=== PATIENT | female | born 1990 | race American Indian/Alaskan Native ===

== ENCOUNTER 2017-01-17 12:17 | Emergency (ER) | payer SELFPAY ==
[2017-01-17 12:39] VITALS: BP 162/118
[2017-01-17 14:07] LABS: Hematocrit 37.4 % (30.3-42.9); Hemoglobin 12.2 gm/dl (10.1-14.3); Mean Corpuscular HGB Conc 33 % (30-34); Mean Corpuscular Hemoglobin 30 pg (28-32); Mean Corpuscular Volume 92 fl (79-97); Platelet Count 214 K/mm3 (140-440); Red Blood Count 4.07 M/mm3 (3.65-5.03); Red Cell Distribution Width 16.2 % (13.2-15.2); White Blood Count 5.4 K/mm3 (4.5-11.0)
[2017-01-17 14:11] LABS: Bilirubin,Urine NEG (Negative); Blood,Urine NEG (Negative); Ketones,Urine NEG (Negative); Leukocyte Esterase,Urine NEG (Negative); Mucus,Urine FEW /HPF; Nitrite,Urine NEG (Negative); Protein,Urine <15 mg/dL mg/dL (Negative); Urobilinogen,Urine < 2.0 mg/dL (<2.0); WBC,Urine < 1.0 /HPF (0.0-6.0)
[2017-01-17 14:32] LABS: Anion Gap 13 mmol/L; BUN/Creatinine Ratio 21.42; Blood Urea Nitrogen 15 mg/dL (7-17); Calcium 9.2 mg/dL (8.4-10.2); Carbon Dioxide 26 mmol/L (22-30); Glucose 76 mg/dL (65-100); Potassium 4.1 mmol/L (3.6-5.0); Sodium 139 mmol/L (137-145)
[2017-01-17] MEDS ORDERED: TYLENOL ONE (20:45)
[2017-01-17] MEDS ORDERED: TYLENOL PO ONE (20:48)
--- NOTE | 2017-01-19 10:13 | ED Elopement Review ---
ED Pt Elopement review - Results review Lab results: Laboratory Tests 01/17/17 01/17/17 01/17/17 13:41 13:54 13:54 WBC 5.4 RBC 4.07 Hgb 12.2 Hct 37.4 MCV 92 MCH 30 MCHC 33 RDW 16.2 H Plt Count 214 Sodium 139 Potassium 4.1 Chloride 104.0 Carbon Dioxide 26 Anion Gap 13 BUN 15 Creatinine 0.7 Estimated GFR > 60 BUN/Creatinine Ratio 21.42 Glucose 76 Calcium 9.2 Urine Color Yellow Urine Turbidity Clear Urine pH 6.0 Ur Specific [place] 1.023 Urine Protein <15 mg/dl Urine Glucose (UA) Neg Urine Ketones Neg Urine Blood Neg Urine Nitrite Neg Urine Bilirubin Neg Urine Urobilinogen < 2.0 Ur Leukocyte Esterase Neg Urine WBC (Auto) < 1.0 Urine RBC (Auto) 3.0 U Epithel Cells (Auto) 8.0 Urine Mucus Few Urine HCG, Qual Negative - Call Back decision Pt Call Back Decision: No action required
== END 2017-01-17 23:00 | disposition left against medical advice (07) ==
LOC: ED 12:17
DX: R10.30 Lower abdominal pain, unspecified (principal); M54.5 Low back pain; N89.8 Other specified noninflammatory disorders of vagina; Z53.21 Procedure and treatment not carried out due to patient leaving prior to being seen by health care provider
CPT/HCPCS: 36415; 80048; 81001; 81025; 85027

== ENCOUNTER 2017-02-13 20:04 | Emergency (ER) | payer MEDICAID, OTHER ==
[2017-02-13 22:01] LABS: Basophils % (Auto) 0.9 % (0.0-1.8); Eosinophils % (Auto) 1.4 % (0.0-4.3); Hematocrit 33.8 % (30.3-42.9); Hemoglobin 11.3 gm/dl (10.1-14.3); Mean Corpuscular HGB Conc 33 % (30-34); Mean Corpuscular Hemoglobin 31 pg (28-32); Mean Corpuscular Volume 92 fl (79-97); Platelet Count 211 K/mm3 (140-440); Red Blood Count 3.69 M/mm3 (3.65-5.03); Red Cell Distribution Width 14.4 % (13.2-15.2)
[2017-02-13 22:23] LABS: Anion Gap 17 mmol/L; Blood Urea Nitrogen 9 mg/dL (7-17); Calcium 8.9 mg/dL (8.4-10.2); Carbon Dioxide 23 mmol/L (22-30); Chloride 99.9 mmol/L (98-107); Glucose 86 mg/dL (65-100); Lipase 22 units/L (13-60); Potassium 4.1 mmol/L (3.6-5.0); Sodium 136 mmol/L (137-145)
[2017-02-13 22:26] LABS: Bacteria,Urine 1+ /HPF (Negative); Bilirubin,Urine NEG (Negative); Blood,Urine NEG (Negative); Ketones,Urine NEG (Negative); Leukocyte Esterase,Urine MOD (Negative); Mucus,Urine FEW /HPF; Nitrite,Urine NEG (Negative); Protein,Urine <15 mg/dL mg/dL (Negative); Urobilinogen,Urine < 2.0 mg/dL (<2.0)
[2017-02-14] MEDS ORDERED: TYLENOL ONE (01:39)
[2017-02-14] MEDS ORDERED: TYLENOL PO ONE ×2 (01:47→08:23)
--- NOTE | 2017-02-14 02:52 | Ultrasound Report ---
FINAL REPORT PROCEDURE: US OB TRANSVAGINAL TECHNIQUE: Real-time transvaginal sonography of the uterus, placenta, amniotic fluid, adnexa, and fetus was performed with image documentation. Measurements were obtained to determine age/size. M-mode Doppler was used to document heartbeat. CPT 69147 HISTORY: pain, vag bleed COMPARISON: No prior studies are available for comparison. FINDINGS: CRL: 7.6mm, which corresponds to a gestational age of: 6weeks, 5 days. Yolk Sac: Normal. Embryonic Cardiac Activity: 128 beats per minute Gestational Sac: Normal. However, there is a subchorionic hematoma measuring 19 x 6 x 7 millimeters. Right Ovary: Normal. Left Ovary: There is a 2.2 centimeter solid appearing lesion in the left ovary which could be hemorrhagic corpus luteal cyst. Estimated delivery date: 10/05/2017 Comment: Complete anatomic survey at 18-20 weeks suggested. IMPRESSION: 1. Single living intrauterine gestation at approximately 6 weeks and 5 days 2. EDC by US 10/05/2017. 3. Subchorionic hematoma. 4. Probable hemorrhagic cyst in left ovary.
--- NOTE | 2017-02-14 02:54 | Ultrasound Report ---
FINAL REPORT PROCEDURE: US OB transabdominal TECHNIQUE: Real-time transabdominal sonography of the uterus, placenta, amniotic fluid, adnexa, and fetus was performed with image documentation. Measurements were obtained to determine age/size. M-mode Doppler was used to document heartbeat. HISTORY: pain, vag bleed COMPARISON: No prior studies are available for comparison. FINDINGS: CRL: 7.6mm, which corresponds to a gestational age of: 6weeks, 5 days. Yolk Sac: Normal. Embryonic Cardiac Activity: 128 beats per minute Gestational Sac: Normal. However, there is a subchorionic hematoma measuring 19 x 6 x 7 millimeters. Right Ovary: Normal. Left Ovary: There is a 2.2 centimeter solid appearing lesion in the left ovary which could be hemorrhagic corpus luteal cyst. Estimated delivery date: 10/05/2017 Comment: Complete anatomic survey at 18-20 weeks suggested. IMPRESSION: 1. Single living intrauterine gestation at approximately 6 weeks and 5 days 2. EDC by US 10/05/2017. 3. Subchorionic hematoma. 4. Probable hemorrhagic cyst in left ovary.
--- NOTE | 2017-02-14 08:30 | Emergency Department Report ---
HPI - General Chief Complaint: Urogenital-Female Time Seen by Provider: 02/14/17 08:11 - HPI HPI: Room 8 The patient is 26-year-old female presenting with a chief complaint of chest pain and abdominal pain. Patient is approximately 7 weeks and states for 5 weeks she has had lower abdominal pain. Patient was seen by her [facility] last week and diagnosed with bacterial vaginosis. The patient states for 1 week she has had left sided chest pain that has been sharp and pleuritic in nature. Patient admits to a cough that has been nonproductive. Patient states yesterday she had an episode of vomiting and noticed specks of blood. Patient missed shortness of breath for one week. Patient denies any history of fever. Patient currently gives her chest pain a score of 6/10. Location: Chest, abdomen Duration: [see above] Quality: Sharp Severity: 6/10 Modifying factors: [see above] Context: [see above] Mode of transportation: [not driving] ED Past Medical Hx - Past Medical History Hx Hypertension: Yes (severe pre-eclampsia) Hx GERD: Yes Hx Psychiatric Treatment: Yes (DEPRESSION) - Surgical History Additional Surgical History: csection - Family History Family history: no significant - Social History Smoking Status: Current Some Day Smoker Substance Use Type: None (denies illicit drug use) - Medications Home Medications: Home Medications Medication Instructions Recorded Confirmed Last Taken Type Labetalol [Normodyne TAB] 400 mg PO BID #120 tablet 09/07/16 02/14/17 Unknown Rx NIFEdipine XL [Procardia Xl] 30 mg PO QDAY #30 tablet 09/13/16 02/14/17 Unknown Rx Famotidine [Pepcid] 20 mg PO BID #30 tablet 02/14/17 Unknown Rx ED Review of Systems ROS: Stated complaint: VOMITING BLOOD 7 WKS PREG Other details as noted in HPI Comment: All other systems reviewed and negative Constitutional: denies: chills, fever Eyes: denies: eye pain, eye discharge, vision change ENT: denies: ear pain, throat pain Respiratory: cough, shortness of breath Cardiovascular: chest pain Endocrine: no symptoms reported Gastrointestinal: abdominal pain, nausea, vomiting Genitourinary: hematuria. denies: urgency, dysuria, discharge Musculoskeletal: denies: back pain, joint swelling, arthralgia Skin: denies: rash, lesions Neurological: denies: headache, weakness, paresthesias Psychiatric: denies: anxiety, depression Hematological/Lymphatic: denies: easy bleeding, easy bruising Physical Exam - Physical Exam Vital Signs: Vital Signs 02/13/17 02/14/17 02/14/17 21:19 01:37 04:44 Temperature 98.4 F Pulse Rate 76 69 63 Respiratory 18 18 18 Rate Blood Pressure 145/105 149/95 151/111 Blood Pressure [Right] O2 Sat by Pulse 100 100 100 Oximetry 02/14/17 02/14/17 08:14 08:19 Temperature Pulse Rate 76 Respiratory 15 16 Rate Blood Pressure Blood Pressure 144/87 [Right] O2 Sat by Pulse 100 100 Oximetry Physical Exam: GENERAL: The patient is well-developed well-nourished female lying on stretcher not appearing to be in acute distress. [] HEENT: Normocephalic. Atraumatic. Extraocular motions are intact. Patient has moist mucous membranes. NECK: Supple. Regular midline CHEST/LUNGS: Clear to auscultation. There is no respiratory distress noted. HEART/CARDIOVASCULAR: Regular. There is no tachycardia. There is no gallop rub or murmur. ABDOMEN: Abdomen is soft, nontender. Patient has normal bowel sounds. There is no abdominal distention. SKIN: There is no rash. There is no edema. There is no diaphoresis. NEURO: The patient is awake, alert, and oriented. The patient is cooperative. The patient has normal speech MUSCULOSKELETAL: There is no evidence of acute injury. ED Course Vital Signs 02/13/17 02/14/17 02/14/17 21:19 01:37 04:44 Temperature 98.4 F Pulse Rate 76 69 63 Respiratory 18 18 18 Rate Blood Pressure 145/105 149/95 151/111 Blood Pressure [Right] O2 Sat by Pulse 100 100 100 Oximetry 02/14/17 02/14/17 08:14 08:19 Temperature Pulse Rate 76 Respiratory 15 16 Rate Blood Pressure Blood Pressure 144/87 [Right] O2 Sat by Pulse 100 100 Oximetry ED Medical Decision Making - Lab Data Result diagrams: 02/13/17 21:51 02/13/17 21:51 Laboratory Tests 02/13/17 02/13/17 02/13/17 21:51 21:51 22:00 WBC 7.0 RBC 3.69 Hgb 11.3 Hct 33.8 MCV 92 MCH 31 MCHC 33 RDW 14.4 Plt Count 211 Lymph % (Auto) 35.4 H [place] % (Auto) 10.7 H Eos % (Auto) 1.4 Baso % (Auto) 0.9 Lymph # 2.5 Coles # 0.7 Eos # 0.1 Baso # 0.1 Seg Neutrophils % 51.6 Seg Neutrophils # 3.6 Sodium 136 L Potassium 4.1 Chloride 99.9 Carbon Dioxide 23 Anion Gap 17 BUN 9 Creatinine 0.5 L Estimated GFR > 60 BUN/Creatinine Ratio 18.00 Glucose 86 Calcium 8.9 Troponin T < 0.010 Lipase 22 HCG, Quant Urine Color Yellow Urine Turbidity Cloudy Urine pH 6.0 Ur Specific [place] 1.018 Urine Protein <15 mg/dl Urine Glucose (UA) Neg Urine Ketones Neg Urine Blood Neg Urine Nitrite Neg Ur Reducing Substances Not Reportable Urine Bilirubin Neg Urine Ictotest Not Reportable Urine Urobilinogen < 2.0 Ur Leukocyte Esterase Mod Urine WBC (Auto) 1.0 Urine RBC (Auto) 3.0 U Epithel Cells (Auto) 14.0 H Urine Bacteria (Auto) 1+ Urine Mucus Few Urine HCG, Qual Positive A 02/14/17 02/14/17 02/14/17 01:17 03:21 03:21 WBC RBC Hgb Hct MCV MCH MCHC RDW Plt Count Lymph % (Auto) [place] % (Auto) Eos % (Auto) Baso % (Auto) Lymph # [place] # Eos # Baso # Seg Neutrophils % Seg Neutrophils # Sodium Potassium Chloride Carbon Dioxide Anion Gap BUN Creatinine Estimated GFR BUN/Creatinine Ratio Glucose Calcium Troponin T < 0.010 < 0.010 Lipase HCG, Quant 00378 H Urine Color Urine Turbidity Urine pH Ur Specific [place] Urine Protein Urine Glucose (UA) Urine Ketones Urine Blood Urine Nitrite Ur Reducing Substances Urine Bilirubin Urine Ictotest Urine Urobilinogen Ur Leukocyte Esterase Urine WBC (Auto) Urine RBC (Auto) U Epithel Cells (Auto) Urine Bacteria (Auto) Urine Mucus Urine HCG, Qual - EKG Data -: EKG Interpreted by Me EKG shows normal: sinus rhythm Rate: normal - EKG Data When compared to previous EKG there are: no significant change Interpretation: normal EKG, unchanged when compared t (09/11/2016) - Radiology Data Radiology results: report reviewed (pelvic ultrasound, VQ scan), image reviewed (pelvic ultrasound, chest x-ray, VQ scan) interpreted by me: Chest x-ray-no focal infiltrates, no pneumothorax Pelvic ultrasound (read by radiologist)-single living intrauterine gestation at approximately 6 weeks and 5 days. EDC by ultrasound 10/05/2017. Subchorionic hematoma. Probable hemorrhagic cyst in left ovary. VQ scan (read by radiologist)-normal study - Differential Diagnosis PE, pneumonia, bronchitis, threatened Critical care attestation.: If time is entered above; I have spent that time in minutes in the direct care of this critically ill patient, excluding procedure time. ED Disposition Clinical Impression: Chest pain, Subchorionic hemorrhage Disposition: DISCHARGED TO HOME OR SELFCARE Is pt being admited?: No Does the pt Need Aspirin: No Condition: Stable Instructions: Chest Pain (ED) Additional Instructions: Return to the emergency department immediately should you develop worsening symptoms, fever, inability to tolerate food or liquid or any other concerns. Prescriptions: Famotidine [Pepcid] 20 mg PO BID #30 tablet Referrals: PRIMARY CAREMD [Primary Care Provider] - 3-5 Days [facility] [Provider Group] - [place] Time of Disposition: 14:08
--- NOTE | 2017-02-14 09:35 | XRay Report ---
AP CHEST: History: Chest pain. AP view of the chest demonstrates a normal mediastinal and cardiac contour with clear lungs and normal bony and soft tissue structures. IMPRESSION: Normal AP chest.
[2017-02-14 12:18] VITALS: BP 125/68
--- NOTE | 2017-02-14 13:57 | Nuclear Medicine Report ---
PERFUSION LUNG SCAN: After injection of Technetium 99m macroaggregated albumin gamma camera imaging of the lungs in multiple projections demonstrates normal pulmonary contours with a homogeneous distribution of activity. No focal areas of perfusion deficiency are identified. IMPRESSION: Normal study.
== END 2017-02-14 14:29 | disposition home or self-care (01) ==
LOC: ED 20:04
DX: O20.8 Other hemorrhage in early pregnancy (principal); O26.891 Other specified pregnancy related conditions, first trimester; R07.9 Chest pain, unspecified; O16.1 Unspecified maternal hypertension, first trimester; O99.331 Smoking (tobacco) complicating pregnancy, first trimester; K21.9 Gastro-esophageal reflux disease without esophagitis; F32.9 Major depressive disorder, single episode, unspecified; Z3A.01 Less than 8 weeks gestation of pregnancy
CPT/HCPCS: 36415; 71010; 76801; 76817; 78580; 80048; 81001; 81025; 83690; 84484; 84702; 85025; 93005; 93010; 99285; A9540

== ENCOUNTER 2017-04-20 12:25 | Emergency (ER) | payer MEDICAID ==
[2017-04-20 13:58] VITALS: BP 131/90
[2017-04-20 14:29] LABS: Basophils % (Auto) 0.4 % (0.0-1.8); Eosinophils % (Auto) 0.3 % (0.0-4.3); Hemoglobin 11.5 gm/dl (10.1-14.3); Mean Corpuscular HGB Conc 34 % (30-34); Mean Corpuscular Hemoglobin 32 pg (28-32); Mean Corpuscular Volume 94 fl (79-97); Platelet Count 172 K/mm3 (140-440); Red Blood Count 3.61 M/mm3 (3.65-5.03); Red Cell Distribution Width 12.9 % (13.2-15.2); White Blood Count 6.8 K/mm3 (4.5-11.0)
[2017-04-20 15:47] LABS: Bacteria,Urine 1+ /HPF (Negative); Bilirubin,Urine NEG (Negative); Blood,Urine NEG (Negative); Ketones,Urine TR mg/dL (Negative); Leukocyte Esterase,Urine NEG (Negative); Mucus,Urine 1+ /HPF; Nitrite,Urine NEG (Negative)
--- NOTE | 2017-04-20 16:10 | Ultrasound Report ---
FINAL REPORT PROCEDURE: US OB \T\gt; = 14 WEEKS FETUS TECHNIQUE: Real-time transabdominal sonography of the uterus, placenta, amniotic fluid, adnexa, and fetus was performed with image documentation. Measurements were obtained to determine age/size. M-mode Doppler was used to document heartbeat. CPT 97873 HISTORY: bleeding COMPARISON: 02/14/2017 FINDINGS: ADDITIONAL GESTATION: None. GENERAL: IUP: Single living intrauterine . Position: Cephalic Placental position: Grade 0 posterior, without previa. Amniotic fluid volume: Normal. MATERNAL: Uterus: Within normal limits. Cervical length: 3.9 cm. Internal Os: Closed. FETUS: Heart rate and rhythm: 167 BPM, Regular. anatomic survey: Too early for anatomic survey MEASUREMENTS: BPD: 3.5 centimeters consistent 16 weeks 5 days consistent with 58th percentile HC: 13.6 centimeters consistent 17 week 0 day consistent with 64th percentile AC: 10.5 centimeters consistent 16 week 3 day consistent with 46th percentile FL: 2.2 centimeters consistent 16 week 3 day consistent with 39th percentile Mean Gestational Age (composite criteria): 16 weeks 5 days Ratio biometry: HC AC ratio 1.3 consistent with 91st percentile, cephalic index 80.5, FL BPD 61.4 FL AC 20.5 Estimated Weight: 159 grams 24 grams consistent with 38th percentile. Interval growth: Appropriate. Estimated Due Date (earliest scan): 09/30/2017 IMPRESSION: Single intrauterine gestation at 16 weeks 5 days. Estimated due date: 09/30/2017. Normal survey with appropriate growth.
--- NOTE | 2017-04-27 10:21 | ED Elopement Review ---
ED Pt Elopement review - Results review Lab results: Laboratory Tests 04/20/17 04/20/17 04/20/17 14:09 14:09 14:09 WBC 6.8 RBC 3.61 L Hgb 11.5 Hct 34.0 MCV 94 MCH 32 MCHC 34 RDW 12.9 L Plt Count 172 Lymph % (Auto) 10.6 L [place] % (Auto) 8.7 H Eos % (Auto) 0.3 Baso % (Auto) 0.4 Lymph # 0.7 L [place] # 0.6 Eos # 0.0 Baso # 0.0 Seg Neutrophils % 80.0 H Seg Neutrophils # 5.4 HCG, Qual Positive Urine Color Urine Turbidity Urine pH Ur Specific [place] Urine Protein Urine Glucose (UA) Urine Ketones Urine Blood Urine Nitrite Urine Bilirubin Urine Urobilinogen Ur Leukocyte Esterase Urine WBC (Auto) Urine RBC (Auto) U Epithel Cells (Auto) Urine Bacteria (Auto) Urine Mucus Blood Type O POSITIVE Antibody Screen TNR CARMENZA Antibody Screen Negative 04/20/17 15:03 WBC RBC Hgb Hct MCV MCH MCHC RDW Plt Count Lymph % (Auto) [place] % (Auto) Eos % (Auto) Baso % (Auto) Lymph # [place] # Eos # Baso # Seg Neutrophils % Seg Neutrophils # HCG, Qual Urine Color Yellow Urine Turbidity Slightly-cloudy Urine pH 6.0 Ur Specific [place] 1.031 H Urine Protein 100 mg/dl Urine Glucose (UA) Neg Urine Ketones Tr Urine Blood Neg Urine Nitrite Neg Urine Bilirubin Neg Urine Urobilinogen 4.0 Ur Leukocyte Esterase Neg Urine WBC (Auto) 1.0 Urine RBC (Auto) 7.0 U Epithel Cells (Auto) 23.0 H Urine Bacteria (Auto) 1+ Urine Mucus 1+ Blood Type Antibody Screen CARMENZA Antibody Screen - Call Back decision Pt Call Back Decision: No action required
== END 2017-04-20 22:30 | disposition left against medical advice (07) ==
LOC: ED 12:25
DX: O20.9 Hemorrhage in early pregnancy, unspecified (principal); O21.0 Mild hyperemesis gravidarum; R10.31 Right lower quadrant pain; Z53.21 Procedure and treatment not carried out due to patient leaving prior to being seen by health care provider; Z3A.16 16 weeks gestation of pregnancy
CPT/HCPCS: 76805; 81001; 84703; 85025; 86850; 86900; 86901

== ENCOUNTER 2017-06-04 02:47 | Outpatient (CLI) | payer MEDICAID ==
[2017-06-04] MEDS ORDERED: LACTATED RINGERS 500 ML IV ONE (03:42)
[2017-06-04] MEDS ORDERED: LACTATED RINGERS 1,000 ML ONE (04:30)
[2017-06-04] MEDS ORDERED: LACTATED RINGERS 1,000 ML IV ONE ×2 (05:00→05:51)
[2017-06-04 05:40] LABS: Bilirubin,Urine NEG (Negative); Blood,Urine NEG (Negative); Ketones,Urine NEG (Negative); Leukocyte Esterase,Urine NEG (Negative); Mucus,Urine FEW /HPF; Nitrite,Urine NEG (Negative); Protein,Urine <15 mg/dL mg/dL (Negative); Urobilinogen,Urine < 2.0 mg/dL (<2.0); WBC,Urine < 1.0 /HPF (0.0-6.0)
[2017-06-04] MEDS ORDERED: TYLENOL PO ONE (05:51)
[2017-06-04 06:04] VITALS: BP 143/85
== END 2017-06-04 07:10 | disposition home or self-care (01) ==
LOC: TRG 02:47
PROVIDERS: ATTEND Obstetrics & Gynecology
DX: O47.02 False labor before 37 completed weeks of gestation, second trimester (principal); Z3A.23 23 weeks gestation of pregnancy
CPT/HCPCS: 81001; 96360; 96361; J7120

== ENCOUNTER 2017-07-04 12:46 | Outpatient (CLI) | payer MEDICAID ==
[2017-07-04] MEDS ORDERED: LACTATED RINGERS 1,000 ML ONE (14:36)
[2017-07-04 15:08] LABS: Hematocrit 30.2 % (30.3-42.9); Hemoglobin 10.2 gm/dl (10.1-14.3); Mean Corpuscular HGB Conc 34 % (30-34); Mean Corpuscular Hemoglobin 32 pg (28-32); Mean Corpuscular Volume 95 fl (79-97); Platelet Count 180 K/mm3 (140-440); Red Cell Distribution Width 13.2 % (13.2-15.2); White Blood Count 7.9 K/mm3 (4.5-11.0)
[2017-07-04 15:13] LABS: Bacteria,Urine 4+ /HPF (Negative); Bilirubin,Urine NEG (Negative); Blood,Urine SM (Negative); Ketones,Urine NEG (Negative); Leukocyte Esterase,Urine NEG (Negative); Mucus,Urine FEW /HPF; Nitrite,Urine NEG (Negative); Protein,Urine <15 mg/dL mg/dL (Negative); Urobilinogen,Urine < 2.0 mg/dL (<2.0)
[2017-07-04 15:32] LABS: Alanine Aminotransferase 9 units/L (7-56); Lactate Dehydrogenase 128 units/L (91-180); Uric Acid 5.2 mg/dL (3.5-7.6)
[2017-07-04] MEDS ORDERED: LACTATED RINGERS 500 ML IV ONE (16:00)
[2017-07-04 17:41] VITALS: BP 150/99
== END 2017-07-04 18:03 | disposition home or self-care (01) ==
LOC: TRG 12:46
PROVIDERS: ATTEND Obstetrics & Gynecology
DX: O47.02 False labor before 37 completed weeks of gestation, second trimester (principal); Z87.891 Personal history of nicotine dependence; Z3A.27 27 weeks gestation of pregnancy
CPT/HCPCS: 36415; 59025; 81001; 82565; 82731; 83615; 84450; 84460; 84550; 85027; 96360; J7120

== ENCOUNTER 2017-07-11 13:51 | Observation (INO) | payer MEDICAID ==
[2017-07-11] MEDS ORDERED: LACTATED RINGERS 500 ML IV ONE (13:59)
[2017-07-11 15:00] LABS: Bilirubin,Urine NEG (Negative); Blood,Urine NEG (Negative); Ketones,Urine NEG (Negative); Leukocyte Esterase,Urine NEG (Negative); Mucus,Urine FEW /HPF; Nitrite,Urine NEG (Negative); Protein,Urine <15 mg/dL mg/dL (Negative); Urobilinogen,Urine < 2.0 mg/dL (<2.0); WBC,Urine < 1.0 /HPF (0.0-6.0)
[2017-07-11] MEDS ORDERED: APRESOLINE IV PRN (19:18)
[2017-07-11] MEDS ORDERED: MAGNESIUM SULFATE 40GM/1000ML 40 GM/1,000 ML BAG IV SCH (20:00)
[2017-07-11] MEDS ORDERED: PROCARDIA XL PO SCH (20:00)
--- NOTE | 2017-07-11 22:58 | History and Physical Report ---
History of Present Illness Date of examination: 07/11/17 Date of admission: 07/11/17 14:50 Chief complaint: 24 hr urine protein collection History of present illness: 26yo BF EDC 10/01/17; EGA 28 2/7 weeks who is apparently referred to [facility] from [facility] for 24-hour urine protein collection. She is well known to me from a recent admission, she was discharged on 2016 after an admission for ~ 72 hours. Please see copy of discharge summary below: 26 y/o presents to L&D complaining of headaches, blurred vision and epigastric pain x 2 days. She received care at [facility] since 6 weeks, and course has been complicated by a history of Preeclampsia/ PTD @ 32 weeks, Chronic hypertension for which she takes Labetolol 300mg BID and Procardia 30mg QD, previous C Section x 2 - with last delivery 9 months ago , for which she was co-managed with [facility]. Maternal medicine and NICU consult requested [facility] CONSULT: ASSESSMENT * IUP at 27weeks 1 days gestation * Chronic hypertension; rule out superimposed preeclampsia. * IUP at 27weeks 5 days gestation * Chronic hypertension; rule out superimposed preeclampsia. * Upper respiratory tract infection and headache x 2 days * Admitted due elevated blood pressure * Improved BP presently. RECOMMENDATIONS Administer steroids to enhance lung maturity. Given her gestational age we would recommend DELIVERY only IF the patient had signs of unambiguously SEVERE preeclampsia. Given the current gestational age. We suspect CHTN with possible outpatient non- compliance rather than CHTN requiring delivery at this time; however her current hospitalization will allow us to differentiate this situation. Agree with Labetalol and Procardia. Hydralazine PRN. 10 mg every 30 minutes for SBP > 160 or DBP > 105 x 3 doses. Call [facility] for more than 3 dosages of Hydralazine in 24 hours. Observe for improvement in blood pressure. If the patient develops any of the criteria for delivery during observation we would recommend taking steps to deliver this . She was assessed on the morning of 07/10/2017: 26-year-old at 28+1 weeks with superimposed preeclampsia on chronic hypertension -BP range 111-147/70-90's issues -2 prior C-sections -s/p BMZ course on 07/08/17 -Growth wnl -s/p BPP 06/11 on 07/09/17 -Neg HELLP labs -s/p Mag Meds -Labetalol 300 mg twice a day -Procardia 30 mg XL daily She was discharged home [facility] office. On labor and delivery today, her blood pressure has been labile but mostly in the 130s to 140s over 90s range. She does have occasional pressures in the 180s over 100s but these are not persistent. At present, she is asymptomatic for pre-E Past History Past Medical History: hypertension Past Surgical History: section (x 2) - Obstetrical History Expected Date of Delivery: 10/01/17 Actual Gestation: 28 Week(s) 3 Day(s) : 4 Para: 2 Medications and Allergies Allergies Allergy/AdvReac Type Severity Reaction Status Date / Time No Known Allergies Allergy Verified 02/20/16 10:04 Home Medications Medication Instructions Recorded Confirmed Last Taken Type Ferrous Sulfate [Feosol] 325 mg PO QDAY 07/07/17 07/07/17 Unknown History Labetalol [Normodyne TAB] 300 mg PO BID 07/07/17 07/07/17 07/07/17 09:00 History Labetalol [Normodyne TAB] 300 mg PO BID #120 tablet 07/10/17 Unknown Rx NIFEdipine XL [Procardia Xl] 30 mg PO QDAY #30 tablet 07/10/17 Unknown Rx Active Meds: Active Medications Hydralazine HCl (Apresoline) 5 mg IV Q30MIN PRN PRN Reason: Hypertension Lactated Ringer's (Lactated Ringers) 1,000 mls @ 125 mls/hr IV DIRECT ANTIONE Magnesium Sulfate (Magnesium Sulfate 40gm/1000ml) 40 gm in 1,000 mls @ 50 mls/ hr IV TITR ANTIONE PRN Reason: 2 GM/HR Labetalol HCl (Normodyne) 300 mg PO BID ANTIONE Nifedipine (Procardia Xl) 30 mg PO QDAY ANTIONE Review of Systems Constitutional: no fever, no chronic headaches Eyes: no photophobia, no blind spots Cardiovascular: high blood pressure, no chest pain, no syncope, no lightheadedness, no shortness of breath Gastrointestinal: no abdominal pain, no nausea, no vomiting, no heartburn, no indigestion Genitourinary: no vaginal bleeding, no vaginal discharge, no leakage of fluid, no contractions - Vital Signs Vital signs: Vital Signs Pulse BP Pulse Ox 71 142/104 99 07/11/17 14:10 07/11/17 14:10 07/11/17 14:10 Temp Pulse Resp BP Pulse Ox 97.8 F 78 14 139/93 98 07/11/17 19:51 07/11/17 22:53 07/11/17 19:51 07/11/17 22:39 07/11/17 22:53 - Physical Exam Cardiovascular: Regular rate, Normal S1, Normal S2 Lungs: Positive: Clear to auscultation, Normal air movement Abdomen: Positive: normal appearance, soft. Negative: distention, tenderness, guarding, rigidity Genitourinary (Female): Positive: normal external genitalia Vulva: both: normal Uterus: Positive: enlarged. Negative: tender Adnexa: both: normal Extremities: Positive: normal - Obstetrical FHR: category 1 Results All other labs normal. Assessment and Plan A: 26-year-old at 28+2 weeks with superimposed preeclampsia on chronic hypertension -BP range 130-140's/70-90's issues -2 prior C-sections -s/p BMZ course on 07/08/17 -Growth wnl -s/p BPP 8/8 on 07/09/17 -Neg HELLP labs -s/p Mag Meds -Labetalol 300 mg twice a day -Procardia 30 mg XL daily P: -Has already been admitted -Start magnesium per protocol -IV antihypertensives when necessary -Restart her oral antihypertensives - Patient Problems (1) 28 weeks gestation of Current Visit: No Status: Acute (2) Chronic hypertension with superimposed pre-eclampsia Onset Date: 07/07/17 Current Visit: No Status: Acute
[2017-07-11] MEDS: NORMODYNE PO SCH (23:00)
[2017-07-12] MEDS: LACTATED RINGERS 1,000 ML IV SCH ×2 (00:05→13:10)
[2017-07-12] MEDS: NORMODYNE PO SCH (10:45)
[2017-07-12] MEDS ORDERED: TYLENOL PO PRN (12:00)
[2017-07-12] MEDS ORDERED: ZOFRAN IV PRN (12:00)
--- NOTE | 2017-07-12 17:25 | Progress Note ---
Assessment and Plan - Patient Problems (1) 28 weeks gestation of Onset Date: 07/12/17 Current Visit: No Status: Acute Plan to address problem: A: IUP @ 28 4/7 weeks Chronic hypertension with superimposed preeclampsia - stable P: May go home today (2) Chronic hypertension with superimposed pre-eclampsia Onset Date: 07/07/17 Current Visit: No Status: Acute Subjective - Subjective Date of service: 07/12/17 Principal diagnosis: IUP @ 28 3/7 weeks Interval history: Pt states she is feeling much better. Headaches has resolved. Patient reports: movement normal, no new complaints, no loss of fluid, no vaginal bleeding, no contractions Objective - Vital Signs Vital Signs: Vital Signs - 12hr 07/12/17 07/12/17 07/12/17 06:01 06:06 06:08 Temperature Pulse Rate 89 65 66 Blood Pressure 123/78 O2 Sat by Pulse 99 97 Oximetry 07/12/17 07/12/17 07/12/17 06:11 06:15 06:16 Temperature Pulse Rate 66 75 74 Blood Pressure O2 Sat by Pulse 97 93 96 Oximetry 07/12/17 07/12/17 07/12/17 06:21 06:26 06:31 Temperature Pulse Rate 66 68 69 Blood Pressure O2 Sat by Pulse 97 97 97 Oximetry 07/12/17 07/12/17 07/12/17 06:36 06:41 06:46 Temperature Pulse Rate 68 76 81 Blood Pressure O2 Sat by Pulse 97 97 97 Oximetry 07/12/17 07/12/17 07/12/17 06:51 06:53 06:56 Temperature Pulse Rate 80 80 78 Blood Pressure 115/87 O2 Sat by Pulse 98 97 Oximetry 07/12/17 07/12/17 07/12/17 07:01 07:06 07:11 Temperature Pulse Rate 76 73 74 Blood Pressure O2 Sat by Pulse 98 98 96 Oximetry 07/12/17 07/12/17 07/12/17 07:16 07:21 07:26 Temperature Pulse Rate 69 69 70 Blood Pressure O2 Sat by Pulse 97 98 97 Oximetry 07/12/17 07/12/17 07/12/17 07:31 07:36 07:38 Temperature Pulse Rate 65 66 68 Blood Pressure 135/84 O2 Sat by Pulse 97 98 Oximetry 07/12/17 07/12/17 07/12/17 07:39 07:41 07:46 Temperature Pulse Rate 77 56 L 67 Blood Pressure O2 Sat by Pulse 89 99 98 Oximetry 07/12/17 07/12/17 07/12/17 07:51 07:56 08:01 Temperature Pulse Rate 67 70 67 Blood Pressure O2 Sat by Pulse 98 98 97 Oximetry 07/12/17 07/12/17 07/12/17 08:06 08:11 08:16 Temperature Pulse Rate 67 69 66 Blood Pressure O2 Sat by Pulse 98 97 98 Oximetry 07/12/17 07/12/17 07/12/17 08:21 08:23 08:26 Temperature Pulse Rate 63 63 72 Blood Pressure 113/74 O2 Sat by Pulse 96 96 Oximetry 07/12/17 07/12/17 07/12/17 08:29 08:31 08:36 Temperature Pulse Rate 77 75 76 Blood Pressure O2 Sat by Pulse 94 95 95 Oximetry 07/12/17 07/12/17 07/12/17 08:37 08:41 08:43 Temperature Pulse Rate 69 75 74 Blood Pressure O2 Sat by Pulse 94 94 94 Oximetry 07/12/17 07/12/17 07/12/17 08:46 08:51 08:52 Temperature Pulse Rate 74 73 71 Blood Pressure O2 Sat by Pulse 96 95 94 Oximetry 07/12/17 07/12/17 07/12/17 08:56 08:59 09:01 Temperature Pulse Rate 71 65 66 Blood Pressure O2 Sat by Pulse 95 92 96 Oximetry 07/12/17 07/12/17 07/12/17 09:06 09:08 09:11 Temperature Pulse Rate 69 65 73 Blood Pressure 110/64 O2 Sat by Pulse 96 94 96 Oximetry 07/12/17 07/12/17 07/12/17 09:16 09:21 09:26 Temperature Pulse Rate 68 66 70 Blood Pressure O2 Sat by Pulse 96 96 96 Oximetry 07/12/17 07/12/17 07/12/17 09:31 09:36 09:41 Temperature Pulse Rate 72 67 69 Blood Pressure O2 Sat by Pulse 96 96 96 Oximetry 07/12/17 07/12/17 07/12/17 09:46 09:51 09:54 Temperature Pulse Rate 70 65 70 Blood Pressure 113/71 O2 Sat by Pulse 98 97 Oximetry 07/12/17 07/12/17 07/12/17 09:56 10:01 10:06 Temperature Pulse Rate 65 74 77 Blood Pressure O2 Sat by Pulse 97 96 96 Oximetry 07/12/17 07/12/17 07/12/17 10:11 10:16 10:21 Temperature Pulse Rate 78 66 74 Blood Pressure O2 Sat by Pulse 97 97 97 Oximetry 07/12/17 07/12/17 07/12/17 10:26 10:31 10:36 Temperature Pulse Rate 65 68 70 Blood Pressure O2 Sat by Pulse 96 96 97 Oximetry 07/12/17 07/12/17 07/12/17 10:39 10:41 10:45 Temperature Pulse Rate 65 68 77 Blood Pressure 134/85 131/90 O2 Sat by Pulse 93 97 Oximetry 07/12/17 07/12/17 07/12/17 10:46 10:48 10:51 Temperature Pulse Rate 76 75 71 Blood Pressure 131/90 O2 Sat by Pulse 99 98 Oximetry 07/12/17 07/12/17 07/12/17 10:54 10:56 11:01 Temperature 98.0 F Pulse Rate 72 76 Blood Pressure O2 Sat by Pulse 98 99 Oximetry 07/12/17 07/12/17 07/12/17 11:06 11:11 11:16 Temperature Pulse Rate 77 72 72 Blood Pressure O2 Sat by Pulse 98 98 96 Oximetry 07/12/17 07/12/17 07/12/17 11:18 11:21 11:26 Temperature Pulse Rate 73 68 70 Blood Pressure 136/93 O2 Sat by Pulse 94 98 98 Oximetry 07/12/17 07/12/17 07/12/17 11:31 11:36 11:41 Temperature Pulse Rate 70 89 82 Blood Pressure O2 Sat by Pulse 97 98 98 Oximetry 07/12/17 07/12/17 07/12/17 11:46 11:48 11:51 Temperature Pulse Rate 78 81 78 Blood Pressure 139/93 O2 Sat by Pulse 98 93 98 Oximetry 07/12/17 07/12/17 07/12/17 11:56 12:01 12:06 Temperature Pulse Rate 79 90 80 Blood Pressure O2 Sat by Pulse 97 99 96 Oximetry 07/12/17 07/12/17 07/12/17 12:11 12:16 12:18 Temperature Pulse Rate 72 71 73 Blood Pressure 129/81 O2 Sat by Pulse 94 96 Oximetry 07/12/17 07/12/1707/12/17 12:21 12:26 12:31 Temperature Pulse Rate 76 70 77 Blood Pressure O2 Sat by Pulse 98 96 97 Oximetry 07/12/17 07/12/17 07/12/17 12:36 12:41 12:46 Temperature Pulse Rate 76 80 90 Blood Pressure O2 Sat by Pulse 97 97 98 Oximetry 07/12/17 07/12/17 07/12/17 12:49 12:51 12:56 Temperature Pulse Rate 78 92 H 85 Blood Pressure 137/83 O2 Sat by Pulse 97 99 Oximetry 07/12/17 07/12/17 07/12/17 13:01 13:06 13:11 Temperature Pulse Rate 76 76 86 Blood Pressure O2 Sat by Pulse 97 97 98 Oximetry 07/12/17 07/12/17 07/12/17 13:16 13:18 13:21 Temperature Pulse Rate 86 77 80 Blood Pressure 128/76 O2 Sat by Pulse 98 98 Oximetry 07/12/17 07/12/17 07/12/17 13:26 13:31 13:36 Temperature Pulse Rate 80 76 87 Blood Pressure O2 Sat by Pulse 97 97 99 Oximetry 07/12/17 07/12/17 07/12/17 13:41 13:46 13:48 Temperature Pulse Rate 94 H 82 77 Blood Pressure 121/75 O2 Sat by Pulse 96 97 Oximetry 07/12/17 07/12/17 07/12/17 13:51 13:56 14:01 Temperature Pulse Rate 79 76 74 Blood Pressure O2 Sat by Pulse 97 97 98 Oximetry 07/12/17 07/12/17 07/12/17 14:06 14:11 14:16 Temperature Pulse Rate 74 78 75 Blood Pressure O2 Sat by Pulse 97 97 97 Oximetry 07/12/17 07/12/17 07/12/17 14:18 14:21 14:26 Temperature Pulse Rate 78 76 75 Blood Pressure 112/57 O2 Sat by Pulse 96 96 Oximetry 07/12/17 07/12/17 07/12/17 14:30 14:31 14:36 Temperature Pulse Rate 74 73 79 Blood Pressure O2 Sat by Pulse 93 91 97 Oximetry 07/12/17 07/12/17 07/12/17 14:41 14:46 14:49 Temperature Pulse Rate 77 79 88 Blood Pressure 104/59 O2 Sat by Pulse 98 97 94 Oximetry 07/12/17 07/12/17 07/12/17 14:51 14:56 15:01 Temperature Pulse Rate 82 82 82 Blood Pressure O2 Sat by Pulse 95 94 94 Oximetry 07/12/17 07/12/17 07/12/17 15:06 15:11 15:16 Temperature Pulse Rate 80 79 80 Blood Pressure O2 Sat by Pulse 94 97 97 Oximetry 07/12/17 07/12/17 07/12/17 15:18 15:21 15:26 Temperature Pulse Rate 96 H 77 79 Blood Pressure 109/61 O2 Sat by Pulse 97 96 Oximetry 07/12/17 07/12/17 07/12/17 15:31 15:33 15:36 Temperature Pulse Rate 92 H 86 86 Blood Pressure O2 Sat by Pulse 96 93 93 Oximetry 07/12/17 07/12/17 07/12/17 15:38 15:41 15:46 Temperature Pulse Rate 91 H 88 91 H Blood Pressure O2 Sat by Pulse 94 95 93 Oximetry 07/12/17 07/12/17 07/12/17 15:50 15:51 16:13 Temperature Pulse Rate 82 88 79 Blood Pressure 121/65 O2 Sat by Pulse 97 97 Oximetry 07/12/17 07/12/17 07/12/17 16:18 16:23 16:28 Temperature Pulse Rate 85 81 81 Blood Pressure 122/70 O2 Sat by Pulse 98 98 98 Oximetry 07/12/17 07/12/17 07/12/17 16:33 16:38 16:43 Temperature Pulse Rate 85 82 82 Blood Pressure O2 Sat by Pulse 98 97 99 Oximetry 07/12/17 16:48 Temperature Pulse Rate 77 Blood Pressure 124/75 O2 Sat by Pulse 98 Oximetry - Exam Cardiovascular: Regular rate Lungs: Clear to auscultation Abdomen: Present: normal appearance, soft Uterus: Present: normal FHR: category 1 Uterine Contraction Monitor Mode: External Uterine Contraction Pattern: Absent - Labs Labs: Abnormal Labs 07/12/17 07/12/17 07/12/17 01:24 05:54 12:39 Magnesium 3.10 H 4.70 H 5.50 H Laboratory Results - last 24 hr 07/12/17 07/12/17 07/12/17 01:24 05:54 12:39 Magnesium 3.10 H 4.70 H 5.50 H Laboratory Tests 07/11/17 07/12/1717 14:20 01:24 01:47 Magnesium 3.10 H Urine Color Yellow Urine Turbidity Clear Urine pH 6.0 Ur Specific [place] 1.021 Urine Protein <15 mg/dl Urine Glucose (UA) Neg Urine Ketones Neg Urine Blood Neg Urine Nitrite Neg Urine Bilirubin Neg Urine Urobilinogen < 2.0 Ur Leukocyte Esterase Neg Urine WBC (Auto) < 1.0 Urine RBC (Auto) 4.0 U Epithel Cells (Auto) < 1.0 Urine Mucus Few Urine Total Volume 4500 Ur Total Protein 24 Hr 270.00 H Urine Total Protein 6 07/12/17 07/12/17 07/12/17 05:54 12:39 17:39 Magnesium 4.70 H 5.50 H 5.20 H Urine Color Urine Turbidity Urine pH Ur Specific [place] Urine Protein Urine Glucose (UA) Urine Ketones Urine Blood Urine Nitrite Urine Bilirubin Urine Urobilinogen Ur Leukocyte Esterase Urine WBC (Auto) Urine RBC (Auto) U Epithel Cells (Auto) Urine Mucus Urine Total Volume Ur Total Protein 24 Hr Urine Total Protein
[2017-07-12 19:46] VITALS: BP 137/87
--- NOTE | 2017-07-12 19:57 | Discharge Summary ---
Providers - Providers Date of Admission: 07/11/17 14:50 Date of discharge: 07/12/17 Attending physician: SLY ZHENG MD Primary care physician: SLY ZHENG MD Hospitalization Reason for admission: IUP - (IUP @ 28 3/7 weeks; Chronic hypertension with superimposed preeclampsia) Other procedures: none complications: none Discharge diagnosis: other (IUP @ 28 4/7 weeks; Chronic hypertension with superimposed preeclampsia) Hospital course: Pt is a 26yo BF EDC 10/01/17; EGA 28 4/7 weeks who is apparently referred to [facility] from [facility] for 24-hour urine protein collection. She is well known to me from a recent admission, she was discharged on 07/10/2017 after an admission for ~ 72 hours. Unremarkable. BP's remained stable 112/67- 137/87. Repeat 24hr urine was 270mg/ dl. Pt's complaints resolved. Condition at discharge: Good Disposition: DC-01 TO HOME OR SELFCARE - Discharge Diagnoses (1) 28 weeks gestation of Status: Acute (2) Chronic hypertension with superimposed pre-eclampsia Status: Acute Plan - Provider Discharge Summary Activity: routine, no sex for 6 weeks, no heavy lifting 4 weeks, no strenuous exercise Diet: routine Instructions: routine Additional instructions: [] Smoking cessation referral if applicable(refer to patient education folder for contact #) [] Refer to [facility] Book[facility] Call your doctor immediately for: * Fever > 100.5 * Heavy vaginal bleeding ( >1 pad per hour) * Severe persistent headache * Shortness of breath * Reddened, hot, painful area to leg or breast * Drainage or odor from incision. * Keep incision clean and dry at all times and follow doctor's instructions regarding bathing/showering - Follow up plan Follow up: SLY ZACARIAS MD [Primary Care Provider] - 3 Days
== END 2017-07-12 21:00 | disposition home or self-care (01) ==
LOC: TRG 13:51 → LD 14:50
PROVIDERS: ADMIT Obstetrics & Gynecology; ATTEND Obstetrics & Gynecology
DX: O11.3 Pre-existing hypertension with pre-eclampsia, third trimester (principal); O26.893 Other specified pregnancy related conditions, third trimester; R10.13 Epigastric pain; Z3A.28 28 weeks gestation of pregnancy
CPT/HCPCS: 36415; 81001; 83735; 84156; 96365; 96366; 96375; G0378; J2405; J3475; J7120

== ENCOUNTER 2017-07-24 09:13 | Inpatient (IN) | payer MEDICAID ==
[2017-07-24 10:14] LABS: Hematocrit 31.1 % (30.3-42.9); Hemoglobin 10.7 gm/dl (10.1-14.3); Mean Corpuscular HGB Conc 34 % (30-34); Mean Corpuscular Hemoglobin 32 pg (28-32); Mean Corpuscular Volume 94 fl (79-97); Platelet Count 201 K/mm3 (140-440); Red Blood Count 3.31 M/mm3 (3.65-5.03); Red Cell Distribution Width 12.8 % (13.2-15.2); White Blood Count 8.8 K/mm3 (4.5-11.0)
[2017-07-24 10:15] LABS: Bacteria,Urine 1+ /HPF (Negative); Bilirubin,Urine NEG (Negative); Blood,Urine SM (Negative); Ketones,Urine NEG (Negative); Leukocyte Esterase,Urine NEG (Negative); Nitrite,Urine NEG (Negative); Protein,Urine <15 mg/dL mg/dL (Negative); Urobilinogen,Urine < 2.0 mg/dL (<2.0); WBC,Urine < 1.0 /HPF (0.0-6.0)
[2017-07-24 10:27] LABS: Alanine Aminotransferase 8 units/L (7-56); Lactate Dehydrogenase 121 units/L (91-180)
[2017-07-24] MEDS ORDERED: MAGNESIUM SULFATE 4GM/100ML 4 GM/100 ML BAG IV ONE (10:30)
[2017-07-24] MEDS ORDERED: LACTATED RINGERS 500 ML IV ONE (10:30)
[2017-07-24] MEDS ORDERED: MAGNESIUM SULFATE 4GM/100ML 0 GM/0 ML BAG IV ONE (10:42)
[2017-07-24] MEDS ORDERED: MAGNESIUM SULFATE 40GM/1000ML 40 GM/1,000 ML BAG IV ONE (10:42)
[2017-07-24] MEDS: MAGNESIUM SULFATE 40GM/1000ML 40 GM/1,000 ML BAG IV SCH (11:00)
--- NOTE | 2017-07-24 13:20 | History and Physical Report ---
ADMITTING DIAGNOSES: 1. A 26-year-old female 3, para 1-1-0-2 at 30 weeks gestation with chronic hypertension. 2. Superimposed preeclampsia. 3. contractions. 4. Previous sections. HISTORY OF PRESENT ILLNESS: This patient is a 26-year-old female 3, para 1-1-0-2, due date 10/01/2017, who is today at 30 weeks gestation confirmed by first trimester ultrasound, who was sent from the [facility] office for elevated blood pressure and to rule out preeclampsia. This patient is a [facility] patient. She has been receiving care since 6 weeks' gestation. She has also been followed by the perinatology group [facility] for history of chronic hypertension. She was admitted to [facility] 3 times over the past 2 weeks for elevated blood pressure and preeclampsia. On each of those admissions, she was treated with magnesium sulfate and had continuous observation. Blood pressures improved and she did not have any change in her liver functions or renal function and she was discharged home. During the last admission, her blood pressure was more elevated than it used to be and was in the 160s/100s. She was treated with hydralazine and her labetalol dose was increased to 300 mg p.o. b.i.d. and Procardia 30 mg once a day. During that hospitalization, she did achieve good blood pressure control; however, she signed against medical advice because she did not want to have continued observation after 2 days being in the hospital. She did have a follow up appointment today with the perinatology group and when she went there this morning, she reported having headache since last night and right upper quadrant pain. She was sent immediately to the hospital to be admitted. On arrival here, she said that she has been having headache since about 8:00 p.m. last night. She had right upper quadrant pain and blurry vision in the right eye only. She did report good movement. However, she said she started to have some contractions after she arrived here. Her initial blood pressure was 146/85, repeat was 141/88. After 20 minutes, it was 135/85. I came to see her immediately after arrival. At that time, I found her lying in bed comfortably. She said that she was having some occasional contractions, which were painful. She did report having right upper quadrant pain. She did have this problem during her last admission. At that time, she had normal liver function test and a right upper quadrant ultrasound was done, which ruled out gallstones. She denies any vaginal bleeding or fluid leakage per vagina. PAST MEDICAL HISTORY: Chronic hypertension. PAST SURGICAL HISTORY: sections x 2. ALLERGIES: Denies any drug allergies. SOCIAL HISTORY: Denies any smoking, alcohol, or drug abuse. FAMILY HISTORY: Noncontributory. MEDICATIONS: Labetalol 300 mg p.o. b.i.d., Procardia-XR 30 mg p.o. once a day, vitamins. chart was reviewed. Type and screen is O positive, rubella immune, RPR nonreactive. Pap smear normal during this . Hepatitis B surface antigen negative, HIV negative. GCT 118. REVIEW OF SYSTEMS: As above. PHYSICAL EXAMINATION: GENERAL: No acute distress. VITAL SIGNS: Blood pressure currently 114/72, repeat 112/70, heart rate 84, temperature 98 degrees Fahrenheit, respiration 18. HEENT: Normal. CHEST: Clear to auscultation bilaterally. CARDIOVASCULAR: Normal heart sounds. BREAST: Deferred. RECTAL: Deferred. NEUROLOGICAL: Alert, awake, oriented x 3. ABDOMEN: Soft, gravid uterus. Occasional palpable contractions. PELVIC: External genitalia is normal. No lesions, no bleeding. Cervix is closed, 50% effaced, posterior. No bleeding. Bedside ultrasound was done. It revealed a single intrauterine in a vertex presentation. Good movement, tone good, and good breathing motion. LABORATORY DATA: White count 8.8, hemoglobin 10.7, hematocrit 31.1, platelet 201. AST 10, ALT 8, creatinine 0.5, uric acid is 6. LDH is normal. ASSESSMENT: 1. A 26-year-old female 3, para 1-1-0-2 at 30 weeks gestation with superimposed preeclampsia on chronic hypertension. 2. Previous two sections. 3. contractions. PLAN: 1. We will admit the patient to maternity floor. 2. Toxemia labs were done and they were all normal including liver function tests. 3. Magnesium sulfate loading dose was given. She is currently being maintained at 2 g per hour. A Roman catheter was placed. We will closely monitor magnesium level and urinary output. 4. We will continue blood pressure monitoring, heart monitoring. 5. I did consult with Dr. Kelsey (VIANEY at [facility] perinatology group). He knows this patient very well. I went over these findings with him. He recommended to not to do any major intervention at this time in terms of delivery, but to observe the patient for now. He feels that this patient has chronic hypertension causing these symptoms. He thinks this patient should be observed for at least 24 hours with magnesium sulfate, monitoring, blood pressure monitoring. The patient did complete her betamethasone last week. He also suggested that, if anything were to change obstetrically or if the patient develops any features of severe preeclampsia, if the blood pressure becomes elevated and unable to be controlled with medications, that the patient should be delivered. At this point, the plan has been made to do continuous observation while monitoring the baby and the blood pressure patterns. These plans were discussed with the patient and she expressed understanding of what is going on. 6. We will order a 24-hour urine starting today. JOB# [id number] JACKELIN/VENTURA MARROQUIN
[2017-07-24] MEDS: NORCO 5/325 PO PRN (18:01)
[2017-07-24] MEDS ORDERED: LACTATED RINGERS 1,000 ML ONE (22:29)
[2017-07-25 06:34] LABS: Hematocrit 31.7 % (30.3-42.9); Hemoglobin 10.7 gm/dl (10.1-14.3); Mean Corpuscular HGB Conc 34 % (30-34); Mean Corpuscular Hemoglobin 32 pg (28-32); Mean Corpuscular Volume 94 fl (79-97); Platelet Count 210 K/mm3 (140-440); Red Blood Count 3.37 M/mm3 (3.65-5.03); Red Cell Distribution Width 13.1 % (13.2-15.2); White Blood Count 7.2 K/mm3 (4.5-11.0)
[2017-07-25 06:50] LABS: Alanine Aminotransferase 9 units/L (7-56); Lactate Dehydrogenase 111 units/L (91-180); Uric Acid 6.6 mg/dL (3.5-7.6)
[2017-07-25] MEDS: MAGNESIUM SULFATE 40GM/1000ML 40 GM/1,000 ML BAG IV SCH (08:22)
[2017-07-25] MEDS: NORCO 5/325 PO PRN ×2 (08:40→19:54)
--- NOTE | 2017-07-25 10:33 | Physician Progress Note ---
HISTORY OF PRESENT ILLNESS: This patient is a 26-year-old female, who is at 30 weeks' gestation, who was admitted earlier today with elevated blood pressure. She has a history of chronic hypertension and had been on labetalol 300 mg twice a day and Procardia 30 mg once a day. She is a patient of [facility] and had been followed over there and had been seen by the perinatology group once weekly. This morning, she went there for a routine visit and her blood pressure was found to be elevated. She complained of severe headaches, visual changes, and right upper quadrant pain. This patient was admitted 3 times this month for this same problem, and she has been given magnesium sulfate on each admission. Last week, she completed betamethasone for lung maturity. She signed against medical advice this past weekend because she did not want any continuous observation anymore. She said today that her headache has started last night. She also had right upper quadrant pain during her last admission and her liver function tests had been stable and she had a normal right upper quadrant ultrasound, which showed no gallstone. This patient was admitted earlier today with a blood pressure of 145/85. Currently, her pressure is 146/87. On admission, she was given magnesium sulfate loading dose and is being maintained at 2 grams per hour and she had continuous monitoring and blood pressure monitoring. She also had some contractions and initial vaginal exam showed a closed cervix. Throughout the day, she has been receiving Tylenol for headaches and the perinatology group was called. I spoke with Dr. Jenkins, and he agreed to only observe the patient at this time without any intervention because the heart tracing variables did improve and the tracing becomes very reactive with a category 1 tracing. Subsequently, the blood pressure went down to 114/67 throughout the day and now the current pressure is 146/87, heart rate is 80. She is afebrile. heart beat is 135 beats per minute with good accelerations, no deceleration and the monitor showed no contractions. Vaginal exam was done again just now at 5:00 p.m. and cervix is closed, 50% effaced, posterior. No palpable contractions. Again, the plan is to continue observing this patient, continue the magnesium sulfate, monitor blood pressure, urinary output, magnesium level, and she is scheduled to have repeat toxemia labs tomorrow. Biophysical profile. JOB# [id number] JACKELIN/VENTURA
[2017-07-25] MEDS ORDERED: ZOFRAN IV NR (11:30)
[2017-07-25] MEDS: MYLICON PO PRN ×2 (12:00→18:39)
--- NOTE | 2017-07-25 12:00 | Ultrasound Report ---
BIOPHYSICAL PROFILE: INDICATION: Hypertension. COMPARISON: 07/19/2017. TECHNIQUE: Transabdominal ultrasound with Doppler interrogation. 2 - breathing movements 2 - movements 2 - posture and tone 2 - Qualitative amniotic fluid volume 8 - TOTAL SCORE OF POSSIBLE 8 Heart Rate (bpm) 124
--- NOTE | 2017-07-26 00:12 | Physician Progress Note ---
SUBJECTIVE: This patient is a 26-year-old female who is at 30 weeks and 1 day gestation, who was admitted yesterday to the hospital for elevated blood pressure with headaches, right upper quadrant pain and right visual disturbances. This patient has a history of chronic hypertension and has been on labetalol and Procardia. She went for a routine visit at the perinatology center and with the above complaints. She was sent to be admitted. On arrival, her blood pressure was 145/91, repeat was 140/84. She was given magnesium sulfate. Toxemia labs were sent and she did have variables on the tracing, but after IV hydration and rest, the tracing became a category 1 tracing and biophysical profile was 8/8 yesterday. Labs showed hemoglobin of10.7, hematocrit 31.7, platelet was 210. After admission, the blood pressure did become lower and she has been running in the 110s-120s/70s. She also had some [place] for the headache, which worked very well for her and liver function tests were normal yesterday. She was observed overnight, and this morning, she said the headache has greatly improved. She had a good night sleep and she denies any blurry visions or headache at this time. She reports good movement. She denies any contractions, bleeding, or fluid leakage per vagina. PHYSICAL EXAMINATION: VITAL SIGNS: Blood pressure is 112/64, heart rate 86, temperature 98.6 degrees Fahrenheit, respirations 18. HEART: heart tracing 120 beats per minutes, reactive. No contractions. ABDOMEN: Soft, nontender, gravid uterus. PELVIC: Deferred. LABORATORY DATA: Hemoglobin 10.7, hematocrit 31.7, platelet 210. Magnesium level was 5.80. Liver function tests are normal this morning. ASSESSMENT: A 26-year-old female with single intrauterine at 30 weeks and 1 day with superimposed preeclampsia on chronic hypertension. Her labetalol and Procardia were held yesterday evening because her blood pressure has been running in the 110-112/60-64 diastolic and the baby has been a category 1 tracing. Her toxemia labs were normal. She is currently on magnesium sulfate at 2 g per hour. Urine output has been adequate. PLAN: 1. We will have a followup biophysical profile today. 2. We will continue to monitor her blood pressure and we may restart antihypertensive medications today. 3. The perinatologist will see this patient today. 4. We will continue current management. JOB# [id number] JACKELIN/VENTURA
[2017-07-26] MEDS: NORMODYNE PO SCH ×2 (09:37→22:32)
[2017-07-26] MEDS ORDERED: BICITRA PO ONE (16:48)
[2017-07-26] MEDS: MYLICON PO PRN (22:51)
[2017-07-27] MEDS ORDERED: LACTATED RINGERS 1,000 ML ONE (00:48)
--- NOTE | 2017-07-27 01:21 | Physician Progress Note ---
SUBJECTIVE: This patient is a 26-year-old female who is 2, para 2-0-0-2 who is today at 30 weeks and 2 days' gestation. She was admitted on 07/24/2017 with elevated blood pressure, right upper quadrant pain, severe headaches and visual disturbances. This patient has a history of chronic hypertension and has been on labetalol and Procardia as an outpatient. She is a patient of [facility] and she has also been followed by the perinatology group, [facility]. She went for a routine visit over there and she reported the above symptoms. Therefore, she was sent for direct admission. On admission, she had blood pressure of 145/91. She also had a headache and right upper quadrant pain. She had tenderness over her ribs area on exam. She also had some contractions, but her pelvic exam showed the cervix to be closed. There was no fluid leakage or bleeding per vagina. There were also some variables on the monitor after the admission. These variables quickly recovered to a baseline of 130s and 140s beats per minute with good accelerations and no further deceleration. She had received magnesium sulfate loading dose and was maintained at 2 g per hour. She did have a right upper quadrant ultrasound during her last admission last week. Her liver function test and RUQ sonogram were normal. This patient received [place] for headaches because Tylenol was not working anymore. The perinatologist, Dr. Jenkins did see the patient and agreed to continue monitoring without any intervention because the pressure had become normal. Yesterday, the patient continued to be asymptomatic and her systolic blood pressure has been in the 110s and 120s and diastolic 60s and 70s. She had good movement. Her biophysical profile was repeated yesterday and was an 8/8. At that time, the antihypertensive medications were held because the systolic pressure has been 110, 114 systolic and 68-72 diastolic. She also was on a low sodium diet this morning. This morning, the patient denies any complaint. She told me the [place] has been helping with her headaches. She is able to have a good night sleep. The right upper quadrant pain is gone and she has occasional rib pains in that area only when the baby moves. She denies any vaginal bleeding or fluid leakage per vagina. She denies any contractions. OBJECTIVE: VITAL SIGNS: Blood pressure this morning is 131/84 at 8:00 a.m. At 6:00 a.m., it was 123/60; throughout the night, it has been in the 120s to low 130s/80s. Heart rate is 80, saturation is 98% on room air. heart 133 beats per minute, good accels and no contractions on the monitor. GENERAL: No acute distress. She is alert, awake, oriented x 3. ABDOMEN: Showed no right upper quadrant tenderness. Abdomen is soft, gravid uterus, no palpable contractions. PELVIC: Deferred. LABORATORY DATA: Last toxemia labs were normal. Magnesium sulfate at 8:00 p.m. last night was 6.3. A 24-hour urine protein was 246. ASSESSMENT AND PLAN: The patient is a 26-year-old female who is at 30 weeks and 2 days' gestation with superimposed preeclampsia on hypertension. Her blood pressure got stable. Biophysical profile has been normal. PLAN: 1. Magnesium sulfate is discontinued this morning. Roman catheter was discontinued. 2. We will continue the blood pressure monitoring and monitoring. 3. We will restart the antihypertensive medication and we will allow the patient to ambulate today to see how she will do with her blood pressure while not resting. 4. We will consult with the Perinatology group about possibly discharging this patient home tomorrow. JOB# [id number] JACKELIN/VENTURA MARROQUIN
[2017-07-27] MEDS ORDERED: BRETHINE ONE (01:30)
[2017-07-27] MEDS ORDERED: BRETHINE SUB-Q ONE (01:31)
[2017-07-27] MEDS: LACTATED RINGERS 1,000 ML IV SCH ×3 (01:41→08:24)
[2017-07-27] MEDS: NORCO 5/325 PO PRN (08:23)
[2017-07-27] MEDS: NORMODYNE PO SCH ×2 (10:32→21:56)
[2017-07-27] MEDS: PROCARDIA XL PO SCH (10:33)
[2017-07-27] MEDS: ZOFRAN IV PRN (12:21)
--- NOTE | 2017-07-27 21:49 | Physician Progress Note ---
SUBJECTIVE: This patient is a 26-year-old female 3, para 2-0-0-2 who is today at 30 weeks and 3 days gestation, who was admitted on 07/24/2017 for elevated blood pressure, severe headaches, right upper quadrant pain and visual disturbances. On admission, she was given magnesium sulfate. Toxemia labs were done and they were normal. She had a 24-hour urine protein, which was 246. She received [place] for headaches with good response. She has a history of costochondritis, which she reported this morning. With her right upper quadrant pain, right upper quadrant ultrasound was done and it was negative for gallstone. This patient's magnesium was discontinued yesterday. She was continued on the labetalol and Procardia. This morning, she denies any headaches, but she said the rib pain kept coming and going. She reported good movement. She denies any contractions, bleeding, or fluid leakage per vagina. During during the night, she did have some irregular contractions, which she was feeling. She was given terbutaline a total of 3 doses and the contractions stopped. OBJECTIVE: VITAL SIGNS: Temperature 96.7 degrees Fahrenheit, blood pressure 119/72. Earlier it was 139/76, heart rate is 79, respirations 18. heart tracing 142 beats per minute with accelerations, no decelerations. ASSESSMENT AND PLAN: A 26-year-old female who is at 30 weeks and 3 days gestation who was admitted with superimposed preeclampsia on chronic hypertension. magnesium sulfate was given and discontinued yesterday. Toxemia labs have been normal. Her blood pressure has become stable since admission. She has been on labetolol and procardia. PLAN: 1. We will continue to monitor the patient's blood pressure. 2. We will continue FHT monitoring and do biophysical profile tomorrow. 3. The patient was encouraged to ambulate to see how her BP will do with routine exertion. JOB# [id number] JACKELIN/VENTURA MARROQUIN
[2017-07-28] MEDS: LACTATED RINGERS 1,000 ML IV SCH ×2 (02:25→15:43)
[2017-07-28] MEDS ORDERED: BRETHINE SUB-Q ONE (09:38)
[2017-07-28] MEDS: PROCARDIA XL PO SCH (10:07)
[2017-07-28] MEDS: NORMODYNE PO SCH ×2 (10:07→22:08)
--- NOTE | 2017-07-28 10:30 | Physician Progress Note ---
OBSTETRIC PROGRESS NOTE INTERVAL HISTORY: This patient is a 26-year-old female 3, para 2-0-0-2, who is today at 30 weeks and 4 days gestation, who was admitted on 07/24/2017 with elevated blood pressure, right upper quadrant pain, severe headaches and visual disturbances. She was diagnosed with superimposed preeclampsia on chronic hypertension. She had been on labetalol and Procardia as an outpatient. She does follow with [facility] perinatology group weekly. After admission, she received magnesium sulfate, which was discontinued 2 days ago. Since then, her blood pressure had been stable. She was continued on her labetalol and Procardia daily. This morning, she had some contractions, which she was feeling. Terbutaline was given and the contractions stopped. PHYSICAL EXAMINATION: VITAL SIGNS: Blood pressure 141/88, temperature 99 degrees Fahrenheit, heart rate 67, respirations 16. heart tracing 130s beats per minute, reactive, no decelerations. PELVIC: Cervix is closed, 50% effaced, posterior. No leakage of fluid, no bleeding. GENERAL: No acute distress. ABDOMEN: Soft, nontender, gravid uterus. EXTREMITIES: No edema, no calf tenderness. No Homans sign. NEUROLOGIC: Alert, awake, oriented x 3. ASSESSMENT: A 26-year-old female at 30 weeks and 4 days gestation with superimposed preeclampsia on chronic hypertension. Magnesium sulfate was given on admission and was discontinued 2 days ago. Blood pressure had been stable. She is currently on labetalol and Procardia. Biophysical profile had been normal this morning. contractions responsive to terbutaline. PLAN: 1. We will continue to monitor blood pressure and heart tracing. 2. We will continue antihypertensive medications. 3. The patient is to ambulate as needed today. JOB# [id number] JACKELIN/VENTURA MARROQUIN
[2017-07-28] MEDS: NORCO 5/325 PO PRN (12:43)
[2017-07-29] MEDS: NORCO 5/325 PO PRN ×2 (03:02→12:21)
[2017-07-29] MEDS: LACTATED RINGERS 1,000 ML IV SCH ×3 (03:04→21:20)
[2017-07-29] MEDS: NORMODYNE PO SCH ×2 (09:45→22:05)
[2017-07-29] MEDS: PROCARDIA XL PO SCH (09:45)
--- NOTE | 2017-07-29 22:33 | Physician Progress Note ---
SUBJECTIVE: This patient is a 26-year-old female 3, para 2-0-0-2, who is at 30 weeks and 5 days gestation, admitted on 07/24/2017 with superimposed preeclampsia and chronic hypertension. At that time, she had elevated blood pressure, right upper quadrant pain, severe headaches, and visual disturbances in the right eye. She was given magnesium sulfate and her labetalol and Procardia was continued. Her blood pressure became stable. magnesium sulfate was discontinued on 07/26/17. This patient also has a history of severe headache, which was related mainly to migraines and she responded well to [place] p.r.n. This morning, this patient appears to be stable. She denies any headache, or RUQ pain. She denied any contractions, fluid leakage, or bleeding from vagina. She reported good movement. PHYSICAL EXAMINATION: VITAL SIGNS: Her current blood pressure is 125/71, earlier it was 124/76, temperature is 98 degrees Fahrenheit, heart rate is 75. heart 130 beats per minute, reactive, no decelerations, no contractions. LABORATORY DATA: Last hemoglobin was 10.7, hematocrit 31.7 on 07/25/2017. ASSESSMENT: Single intrauterine at 30 weeks and 5 days with superimposed preeclampsia on chronic hypertension. She received Magnesium sulfate. She is currently on [place] for headaches and labetolol and procardia for HTN. Currently, she is hemodynamically stable with stable blood pressure. PLAN: 1. We will continue heart monitoring and blood pressure monitoring. 2. We will consult with the perinatologist today about continued observation versus discharging this patient home. JOB# [id number] JACKELIN/VENTURA MARROQUIN
[2017-07-30] MEDS: LACTATED RINGERS 1,000 ML IV SCH ×2 (09:23→19:14)
[2017-07-30] MEDS: NORMODYNE PO SCH ×2 (09:27→21:40)
[2017-07-30] MEDS: PROCARDIA XL PO SCH (09:29)
--- NOTE | 2017-07-30 12:51 | Consultation ---
History of Present Illness Reason for consult: other (26yo BF EDC 10/01/17; EGA 31 weeks is referred to [facility] from [facility] clinic. She has chronic hypertension. She received care [facility] since 6 weeks, and course has been complicated by a history of Preeclampsia/PTD @ 32 weeks, Chronic hypertension for which she takes Labetolol 300mg BID and Procardia 30mg QD, previous C Section x 2 . 07/30/17 [facility] consult . Patient BP of 130/81 mm Hg under Labetalol 300 mg PO BID and Procardia 30 mg QD . S/P BMZ for FLM . S /P MgSo4 Protein, 24 hr urine -246 mg/24 hr . Patient denies VB and LOF. Patient denies sxs of superimposed PreEclampsia Patient reports AFM )) Past History - Obstetrical History : 4 Medications and Allergies Allergies Allergy/AdvReac Type Severity Reaction Status Date / Time No Known Allergies Allergy Verified 02/20/16 10:04 Home Medications Medication Instructions Recorded Confirmed Last Taken Type Ferrous Sulfate [Feosol] 325 mg PO QDAY 07/07/17 07/26/17 07/26/17 History Labetalol [Normodyne TAB] 300 mg PO BID 07/07/17 07/26/17 07/26/17 History NIFEdipine XL [Procardia Xl] 30 mg PO QDAY #30 tablet 07/10/17 07/26/17 Rx Vit No.130/Iron/FA 1 tab PO DAILY 07/17/17 07/26/17 07/26/17 History [ Tablet] Active Meds: Active Medications Acetaminophen/Hydrocodone Bitart ([place] 5/325) 1 each PO Q6H PRN PRN Reason: Pain, Moderate (4-6) Last Admin: 07/29/17 12:21 Dose: 1 each Butorphanol Tartrate (Stadol) 2 mg IV Q2H PRN PRN Reason: Labor Pain Magnesium Sulfate (Magnesium Sulfate 40gm/1000ml) 40 gm in 1,000 mls @ 50 mls/ hr IV DIRECT ANTIONE PRN Reason: 2 GM/HR Last Infusion: 07/26/17 08:15 Dose: Infused Lactated Ringer's (Lactated Ringers) 1,000 mls @ 125 mls/hr IV DIRECT ANTIONE Last Admin: 07/30/17 09:23 Dose: 125 mls/hr Labetalol HCl (Normodyne) 300 mg PO BID [facility] Last Admin: 07/30/17 09:27 Dose: 300 mg Nifedipine (Procardia Xl) 30 mg PO QDAY [facility] Last Admin: 07/30/17 09:29 Dose: 30 mg Ondansetron HCl (Zofran) 4 mg IV Q8H PRN PRN Reason: Nausea And Vomiting Last Admin: 07/27/17 12:21 Dose: 4 mg Simethicone (Mylicon) 80 mg PO Q6H PRN PRN Reason: Gas pain Last Admin: 07/26/17 22:51 Dose: 80 mg Review of Systems Constitutional: no fever Eyes: other (scotoma), no photophobia Ears, nose, mouth and throat: no headache, no vertigo Cardiovascular: no rapid/irregular heart beat, no edema, no shortness of breath Breasts: deferred Gastrointestinal: no indigestion Genitourinary: no vaginal bleeding, no vaginal discharge, no pelvic pain Rectal Exam: deferred Integumentary: no rash Neurological: no seizures, no syncope, no headaches, no confusion Hematologic/Lymphatic: no easy bruising, no easy bleeding - Vital Signs Vital signs: Vital Signs Pulse BP 77 146/85 07/24/17 09:32 07/24/17 09:32 Temp Pulse Resp BP Pulse Ox 96.9 F L 79 16 130/81 99 07/30/17 09:31 07/30/17 12:49 07/29/17 17:43 07/30/17 12:38 07/30/17 12:49 - Physical Exam Breasts: Positive: deferred Cardiovascular: Regular rate Lungs: Positive: Normal air movement Abdomen: Negative: tenderness, guarding Uterus: Positive: other (gravid ). Negative: tender Deep Tendon Reflex Grade: Normal +2 - Obstetrical FHR: category 1 FHR comments: a variable noted lasting 15 sec Uterine Contraction Monitor Mode: External Uterine Contraction Pattern: Absent Results Result Diagrams: 07/25/17 06:12 07/25/17 06:12 All other labs normal. Ultrasound: report reviewed ([facility] 07/25/17 + FHT of 124 BPP of 06/11 ) Assessment and Plan 26-year-old at 31.0 weeks with chronic hypertension under multi agent antihypertensive agents A -IUP 31.0 weeks -History of 2 prior C-sections -S/P BMZ and MgSO4 course -BPP 8/8 on 07/25/17 - BM412-514/80's mmHg - Protein,24hr urine-246 - 2016 C/S at 32 weeks due to CHTN with super imposed PreEclampsia - Denies signs and symptoms of superimposed PreEclampsia - EFW 1230 gm 2'11" (17%) [facility] U/S from 07/17/17 P: -Remain in patient -Continue current medical regimen of Labetalol 300 mg PO BID and Procardia 30 mg PO QD -IV antihypertensives as indicated -PIH labs ordered -BPP and limited OB U/S -With stable BP's, labs , patient's assessment , no /maternal compromise and U/S consider d/c home with close supervision with [facility] (Twice weekly [facility] and BP surveillance -Document 1 GTT result -With concerns notify quality control representative [facility] provider -Dr Rivera
[2017-07-30 13:35] LABS: Hematocrit 29.1 % (30.3-42.9); Hemoglobin 9.9 gm/dl (10.1-14.3); Mean Corpuscular HGB Conc 34 % (30-34); Mean Corpuscular Hemoglobin 32 pg (28-32); Mean Corpuscular Volume 95 fl (79-97); Platelet Count 161 K/mm3 (140-440); Red Blood Count 3.07 M/mm3 (3.65-5.03); Red Cell Distribution Width 12.9 % (13.2-15.2); White Blood Count 7.1 K/mm3 (4.5-11.0)
[2017-07-30 13:43] LABS: Alanine Aminotransferase 10 units/L (7-56); Albumin 3.1 g/dL (3.9-5); Alkaline Phosphatase 69 units/L (35-129); Anion Gap 18 mmol/L; Blood Urea Nitrogen 7 mg/dL (7-17); Calcium 8.7 mg/dL (8.4-10.2); Carbon Dioxide 20 mmol/L (22-30); Chloride 104.7 mmol/L (98-107); Glucose 114 mg/dL (65-100); Potassium 3.8 mmol/L (3.6-5.0); Sodium 139 mmol/L (137-145); Total Protein 6.2 g/dL (6.3-8.2); Uric Acid 6.1 mg/dL (3.5-7.6)
--- NOTE | 2017-07-30 14:24 | Progress Note ---
Subjective - Subjective Date of service: 07/30/17 Principal diagnosis: pre-eclampsia Interval history: This patient is a 28 years old , EDC 10/01/17 who was admitted on July 24 with superimposed preeclampsia on chronic hypertension. She has a history of chronic hypertension and has been on labetalol and Procardia as an outpatient. She also follows with [facility] weekly. On admission, blood pressure was 145/91. At that time, she was given magnesium sulfate. Her blood pressure became stable after she has been resting. The next morning she developed some contractions and was given terbutaline subcutaneously. She did have biophysical profile which was 8 out of 8. Today this patient denies any complaints. She reports good movement. Physical exam: Vital signs temperature 98.8F, blood pressure 128/85, heart rate 73, respiration 18. FHT: 135 bpm, reactive. No decels. General: No acute distress. Abdomen soft, nontender, gravid , no palpable contractions. Neuro: Alert, awake, oriented 3. Breast exam: deferred Rectal: deferred. Extremities: no edema, no calf tenderness, no Homans sign. Labs: H&H has been stable. Assessment: 28-year-old female at 30 weeks and 5 days' gestation with superimposed preeclampsia on chronic hypertension. Magnesium sulfate was discontinued. Her blood pressure has been stable. She is on labetalol and Procardia. Plan 1. Will continue blood pressure monitoring and the antihypertensive meds. 2. [facility] will be seeing the patient and will decide on discharging her home today or tomorrow. 3. Will continue heart monitoring. Objective - Vital Signs Vital Signs: Vital Signs - 12hr 07/30/17 07/30/17 07/30/17 02:34 03:04 03:34 Temperature Pulse Rate 83 75 72 Blood Pressure 139/95 123/79 138/88 O2 Sat by Pulse Oximetry 07/30/17 07/30/17 07/30/17 04:05 04:35 05:06 Temperature Pulse Rate 72 75 78 Blood Pressure 143/92 126/79 119/64 O2 Sat by Pulse Oximetry 07/30/17 07/30/17 07/30/17 05:34 06:05 06:37 Temperature Pulse Rate 76 71 67 Blood Pressure 125/83 136/84 172/88 O2 Sat by Pulse Oximetry 07/30/17 07/30/1717 06:49 07:04 07:34 Temperature Pulse Rate 74 90 68 Blood Pressure 135/70 138/80 140/74 O2 Sat by Pulse Oximetry 07/30/17 07/30/17 07/30/17 07:38 07:40 07:43 Temperature Pulse Rate 70 72 77 Blood Pressure 145/93 124/72 O2 Sat by Pulse 99 98 Oximetry 07/30/17 07/30/17 07/30/17 07:48 07:53 07:58 Temperature Pulse Rate 74 67 73 Blood Pressure O2 Sat by Pulse 99 99 98 Oximetry 07/30/17 07/30/17 07/30/17 08:03 08:08 08:13 Temperature Pulse Rate 65 77 73 Blood Pressure O2 Sat by Pulse 99 100 100 Oximetry 07/30/17 07/30/17 07/30/17 08:18 08:23 08:28 Temperature Pulse Rate 77 72 69 Blood Pressure O2 Sat by Pulse 100 99 99 Oximetry 07/30/17 07/30/17 07/30/17 08:33 08:37 08:38 Temperature Pulse Rate 75 73 69 Blood Pressure 128/85 O2 Sat by Pulse 99 99 Oximetry 07/30/17 07/30/17 07/30/17 08:43 08:48 08:53 Temperature Pulse Rate 84 75 73 Blood Pressure O2 Sat by Pulse 100 98 98 Oximetry 07/30/17 07/30/17 07/30/17 08:58 09:03 09:08 Temperature Pulse Rate 79 78 77 Blood Pressure O2 Sat by Pulse 98 98 99 Oximetry 07/30/17 07/30/17 07/30/17 09:13 09:18 09:23 Temperature Pulse Rate 76 71 76 Blood Pressure O2 Sat by Pulse 99 99 99 Oximetry 07/30/17 07/30/17 07/30/17 09:27 09:28 09:31 Temperature 96.9 F L Pulse Rate 78 78 68 Blood Pressure 128/85 130/87 O2 Sat by Pulse 99 Oximetry 07/30/17 07/30/17 07/30/17 09:37 10:37 11:38 Temperature Pulse Rate 81 78 92 H Blood Pressure 135/87 143/93 152/101 O2 Sat by Pulse Oximetry 07/30/17 07/30/17 07/30/17 12:22 12:24 12:29 Temperature Pulse Rate 88 73 80 Blood Pressure 138/96 140/87 O2 Sat by Pulse 99 99 Oximetry 07/30/17 07/30/17 07/30/17 12:34 12:37 12:38 Temperature Pulse Rate 81 85 84 Blood Pressure 136/92 130/81 O2 Sat by Pulse 99 Oximetry 07/30/17 07/30/17 07/30/17 12:39 12:44 12:49 Temperature Pulse Rate 84 83 79 Blood Pressure O2 Sat by Pulse 98 99 99 Oximetry 07/30/17 07/30/17 07/30/17 12:54 12:59 13:04 Temperature Pulse Rate 80 76 82 Blood Pressure 145/89 O2 Sat by Pulse 100 99 99 Oximetry 07/30/17 07/30/17 07/30/17 13:09 13:14 13:19 Temperature Pulse Rate 80 85 74 Blood Pressure 134/75 O2 Sat by Pulse 100 100 99 Oximetry 07/30/17 07/30/17 07/30/17 13:24 13:29 13:34 Temperature Pulse Rate 100 H 81 79 Blood Pressure O2 Sat by Pulse 99 100 100 Oximetry 07/30/17 07/30/17 07/30/17 13:39 13:44 13:49 Temperature Pulse Rate 80 83 82 Blood Pressure O2 Sat by Pulse 99 99 100 Oximetry 07/30/17 07/30/17 07/30/17 13:54 14:00 14:08 Temperature Pulse Rate 80 75 62 Blood Pressure 156/94 O2 Sat by Pulse 99 69 L Oximetry - Labs Labs: Abnormal Labs 07/24/17 07/24/17 07/24/17 09:40 09:40 20:21 RBC 3.31 L Hgb Hct RDW 12.8 L Carbon Dioxide Creatinine 0.5 L Glucose Magnesium 5.20 H Total Protein Albumin Urine Creatinine Ur Total Protein 24 Hr Urine Total Protein 07/25/17 07/25/17 07/25/17 00:37 06:12 06:12 RBC 3.37 L Hgb Hct RDW 13.1 L Carbon Dioxide Creatinine 0.5 L Glucose Magnesium 5.20 H 5.80 H Total Protein Albumin Urine Creatinine Ur Total Protein 24 Hr Urine Total Protein 07/25/17 07/25/17 07/25/17 06:55 12:09 13:08 RBC Hgb Hct RDW Carbon Dioxide Creatinine Glucose Magnesium 5.80 H 5.90 H Total Protein Albumin Urine Creatinine 23.7 H Ur Total Protein 24 Hr 246.60 H Urine Total Protein < 4 L 07/25/17 07/30/17 07/30/17 20:18 13:00 13:00 RBC 3.07 L Hgb 9.9 L Hct 29.1 L RDW 12.9 L Carbon Dioxide 20 L Creatinine 0.5 L Glucose 114 H Magnesium 6.30 H Total Protein 6.2 L Albumin 3.1 L Urine Creatinine Ur Total Protein 24 Hr Urine Total Protein Laboratory Results - last 24 hr 07/30/17 07/30/17 13:00 13:00 WBC 7.1 RBC 3.07 L Hgb 9.9 L Hct 29.1 L MCV 95 MCH 32 MCHC 34 RDW 12.9 L Plt Count 161 Sodium 139 Potassium 3.8 Chloride 104.7 Carbon Dioxide 20 L Anion Gap 18 BUN 7 Creatinine 0.5 L Estimated GFR > 60 BUN/Creatinine Ratio 14.00 Glucose 114 H Uric Acid 6.1 Calcium 8.7 Total Bilirubin 0.20 AST 11 ALT 10 Alkaline Phosphatase 69 Total Protein 6.2 L Albumin 3.1 L Albumin/Globulin Ratio 1.0
[2017-07-31] MEDS: ZOFRAN IV PRN (02:50)
[2017-07-31] MEDS: LACTATED RINGERS 1,000 ML IV SCH ×2 (02:55→11:56)
[2017-07-31] MEDS: NORCO 5/325 PO PRN (02:56)
[2017-07-31] MEDS: STADOL IV PRN (07:39)
--- NOTE | 2017-07-31 09:09 | Ultrasound Report ---
Biophysical profile and limited OB sonogram: History: CHTN BIOPHYSICAL PROFILE: 2 - breathing movements 2 - movements 2 - posture and tone 2 - Qualitative amniotic fluid volume 8 - TOTAL SCORE OF POSSIBLE 8 Heart Rate (bpm) 143 Limited OB sonogram: Gestation: Single Position: Breech Amniotic Fluid: RACHEAL = 19 cm Placenta: Posterior and lateral Placental Grade: 1 Heart Rate: 143 BPM
[2017-07-31] MEDS: NORMODYNE PO SCH (11:39)
[2017-07-31] MEDS: PROCARDIA XL PO SCH (11:42)
--- NOTE | 2017-07-31 13:12 | Progress Note ---
Subjective - Subjective Date of service: 07/30/17 Principal diagnosis: pre-eclampsia Interval history: This patient is a 28 years old , EDC 10/01/17 who was admitted on July 24 with superimposed preeclampsia on chronic hypertension. She has a history of chronic hypertension and has been on labetalol and Procardia as an outpatient. She also follows with [facility] weekly. On admission, blood pressure was 145/91. At that time, she was given magnesium sulfate. Her blood pressure became stable after she has been resting. The next morning she developed some contractions and was given terbutaline subcutaneously. She did have biophysical profile which was 8 out of 8. Today this patient denies any complaints. She reports good movement. Physical exam: Vital signs temperature 98.8F, blood pressure 128/85, heart rate 73, respiration 18. FHT: 135 bpm, reactive. No decels. General: No acute distress. Abdomen soft, nontender, gravid , no palpable contractions. Neuro: Alert, awake, oriented 3. Breast exam: deferred Rectal: deferred. Extremities: no edema, no calf tenderness, no Homans sign. Labs: H&H has been stable. Assessment: 28-year-old female at 30 weeks and 5 days' gestation with superimposed preeclampsia on chronic hypertension. Magnesium sulfate was discontinued. Her blood pressure has been stable. She is on labetalol and Procardia. Plan 1. Will continue blood pressure monitoring and the antihypertensive meds. 2. [facility] will be seeing the patient and will decide on discharging her home today or tomorrow. 3. Will continue heart monitoring. Objective - Vital Signs Vital Signs: Vital Signs - 12hr 07/31/17 07/31/17 07/31/17 01:43 02:43 02:56 Temperature Pulse Rate 70 68 Respiratory 18 Rate Blood Pressure 142/87 138/94 Blood Pressure [Left] O2 Sat by Pulse Oximetry 07/31/17 07/31/17 07/31/17 03:02 03:44 04:06 Temperature 98.1 F Pulse Rate 70 72 Respiratory 18 Rate Blood Pressure 162/102 158/102 Blood Pressure [Left] O2 Sat by Pulse Oximetry 07/31/17 07/31/17 07/31/17 04:10 04:43 05:44 Temperature Pulse Rate 72 71 68 Respiratory Rate Blood Pressure 135/82 135/83 126/68 Blood Pressure [Left] O2 Sat by Pulse Oximetry 07/31/17 07/31/17 07/31/17 06:43 07:23 07:28 Temperature 97 F L Pulse Rate 75 75 79 Respiratory 20 Rate Blood Pressure 131/72 137/78 Blood Pressure 137/78 [Left] O2 Sat by Pulse 99 Oximetry 07/31/17 07/31/17 07/31/17 07:33 07:38 07:39 Temperature Pulse Rate 70 66 Respiratory 20 Rate Blood Pressure Blood Pressure [Left] O2 Sat by Pulse 100 99 Oximetry 07/31/17 07/31/17 07/31/17 07:43 07:44 07:48 Temperature Pulse Rate 80 73 63 Respiratory Rate Blood Pressure 138/81 Blood Pressure [Left] O2 Sat by Pulse 100 99 Oximetry 07/31/17 07/31/17 07/31/17 07:53 07:58 08:03 Temperature Pulse Rate 63 68 74 Respiratory Rate Blood Pressure Blood Pressure [Left] O2 Sat by Pulse 94 97 97 Oximetry 07/31/17 07/31/17 07/31/17 08:08 08:13 08:15 Temperature Pulse Rate 71 70 92 H Respiratory Rate Blood Pressure Blood Pressure [Left] O2 Sat by Pulse 97 98 94 Oximetry 07/31/17 07/31/17 07/31/17 08:18 08:23 08:25 Temperature Pulse Rate 116 H 103 H Respiratory Rate Blood Pressure Blood Pressure [Left] O2 Sat by Pulse 99 81 L 99 Oximetry 07/31/17 07/31/17 07/31/17 08:30 08:35 08:40 Temperature Pulse Rate 69 65 71 Respiratory Rate Blood Pressure Blood Pressure [Left] O2 Sat by Pulse 98 97 96 Oximetry 07/31/17 07/31/17 07/31/17 08:43 08:45 08:50 Temperature Pulse Rate 67 67 69 Respiratory Rate Blood Pressure 148/77 Blood Pressure [Left] O2 Sat by Pulse 96 96 Oximetry 07/31/17 07/31/17 07/31/17 08:55 09:12 09:14 Temperature Pulse Rate 73 81 78 Respiratory Rate Blood Pressure Blood Pressure [Left] O2 Sat by Pulse 98 80 L 88 Oximetry 07/31/17 07/31/17 07/31/17 09:19 09:24 09:29 Temperature Pulse Rate 78 66 69 Respiratory Rate Blood Pressure Blood Pressure [Left] O2 Sat by Pulse 98 97 97 Oximetry 07/31/17 07/31/17 07/31/17 09:34 09:39 09:44 Temperature Pulse Rate 71 89 71 Respiratory Rate Blood Pressure 137/81 Blood Pressure [Left] O2 Sat by Pulse 97 99 99 Oximetry 07/31/17 07/31/17 07/31/17 09:49 09:54 09:59 Temperature Pulse Rate 81 81 70 Respiratory Rate Blood Pressure Blood Pressure [Left] O2 Sat by Pulse 98 98 98 Oximetry 07/31/17 07/31/17 07/31/17 10:04 10:05 10:10 Temperature Pulse Rate 66 73 Respiratory Rate Blood Pressure Blood Pressure [Left] O2 Sat by Pulse 83 L 98 99 Oximetry 07/31/17 07/31/17 07/31/17 10:15 10:20 10:25 Temperature Pulse Rate 71 70 71 Respiratory Rate Blood Pressure Blood Pressure [Left] O2 Sat by Pulse 99 99 100 Oximetry 07/31/17 07/31/17 07/31/17 10:30 10:35 10:40 Temperature Pulse Rate 75 76 73 Respiratory Rate Blood Pressure Blood Pressure [Left] O2 Sat by Pulse 99 99 99 Oximetry 07/31/17 07/31/17 07/31/17 10:43 10:45 10:50 Temperature Pulse Rate 68 69 75 Respiratory Rate Blood Pressure 140/95 Blood Pressure [Left] O2 Sat by Pulse 99 98 Oximetry 07/31/17 07/31/17 07/31/17 10:55 11:00 11:05 Temperature Pulse Rate 72 69 71 Respiratory Rate Blood Pressure Blood Pressure [Left] O2 Sat by Pulse 98 97 98 Oximetry 07/31/17 07/31/17 07/31/17 11:10 11:15 11:20 Temperature Pulse Rate 98 H 64 70 Respiratory Rate Blood Pressure Blood Pressure [Left] O2 Sat by Pulse 98 98 98 Oximetry 07/31/17 07/31/17 07/31/17 11:25 11:30 11:35 Temperature Pulse Rate 82 70 76 Respiratory Rate Blood Pressure Blood Pressure [Left] O2 Sat by Pulse 98 98 98 Oximetry 07/31/17 07/31/17 07/31/17 11:39 11:40 11:43 Temperature Pulse Rate 83 73 72 Respiratory Rate Blood Pressure 133/88 133/88 Blood Pressure [Left] O2 Sat by Pulse 97 Oximetry 07/31/17 07/31/17 07/31/17 11:45 11:49 11:53 Temperature Pulse Rate 88 71 Respiratory Rate Blood Pressure Blood Pressure [Left] O2 Sat by Pulse 98 89 100 Oximetry 07/31/17 07/31/17 07/31/17 11:58 12:03 12:08 Temperature Pulse Rate 75 71 74 Respiratory Rate Blood Pressure Blood Pressure [Left] O2 Sat by Pulse 98 98 99 Oximetry 07/31/17 07/31/17 07/31/17 12:13 12:18 12:23 Temperature Pulse Rate 70 72 72 Respiratory Rate Blood Pressure Blood Pressure [Left] O2 Sat by Pulse 100 97 97 Oximetry 07/31/17 07/31/17 07/31/17 12:28 12:33 12:38 Temperature Pulse Rate 68 70 91 H Respiratory Rate Blood Pressure Blood Pressure [Left] O2 Sat by Pulse 98 98 98 Oximetry 07/31/17 07/31/17 07/31/17 12:43 12:48 12:49 Temperature Pulse Rate 97 H 78 76 Respiratory Rate Blood Pressure 136/92 Blood Pressure [Left] O2 Sat by Pulse 97 97 94 Oximetry 07/31/17 07/31/17 07/31/17 12:53 12:58 13:03 Temperature Pulse Rate 77 65 69 Respiratory Rate Blood Pressure Blood Pressure [Left] O2 Sat by Pulse 99 97 97 Oximetry - Labs Labs: Abnormal Labs 07/24/17 07/24/17 07/24/17 09:40 09:40 20:21 RBC 3.31 L Hgb Hct RDW 12.8 L Carbon Dioxide Creatinine 0.5 L Glucose Magnesium 5.20 H Total Protein Albumin Urine Creatinine Ur Total Protein 24 Hr Urine Total Protein 07/25/17 07/25/17 07/25/17 00:37 06:12 06:12 RBC 3.37 L Hgb Hct RDW 13.1 L Carbon Dioxide Creatinine 0.5 L Glucose Magnesium 5.20 H 5.80 H Total Protein Albumin Urine Creatinine Ur Total Protein 24 Hr Urine Total Protein 07/25/17 07/25/17 07/25/17 06:55 12:09 13:08 RBC Hgb Hct RDW Carbon Dioxide Creatinine Glucose Magnesium 5.80 H 5.90 H Total Protein Albumin Urine Creatinine 23.7 H Ur Total Protein 24 Hr 246.60 H Urine Total Protein < 4 L 07/25/17 07/30/17 07/30/17 20:18 13:00 13:00 RBC 3.07 L Hgb 9.9 L Hct 29.1 L RDW 12.9 L Carbon Dioxide 20 L Creatinine 0.5 L Glucose 114 H Magnesium 6.30 H Total Protein 6.2 L Albumin 3.1 L Urine Creatinine Ur Total Protein 24 Hr Urine Total Protein Laboratory Results - last 24 hr 07/30/17 07/30/17 13:00 13:00 WBC 7.1 RBC 3.07 L Hgb 9.9 L Hct 29.1 L MCV 95 MCH 32 MCHC 34 RDW 12.9 L Plt Count 161 Sodium 139 Potassium 3.8 Chloride 104.7 Carbon Dioxide 20 L Anion Gap 18 BUN 7 Creatinine 0.5 L Estimated GFR > 60 BUN/Creatinine Ratio 14.00 Glucose 114 H Uric Acid 6.1 Calcium 8.7 Total Bilirubin 0.20 AST 11 ALT 10 Alkaline Phosphatase 69 Total Protein 6.2 L Albumin 3.1 L Albumin/Globulin Ratio 1.0
--- NOTE | 2017-07-31 13:21 | Progress Note ---
Subjective - Subjective Date of service: 07/31/17 Principal diagnosis: pre-eclampsia Interval history: This patient is a 28 years old , EDC 10/01/17 at 30 weeks and 6 days who was admitted on July 24 with superimposed preeclampsia on chronic hypertension. She has a history of chronic hypertension and has been on labetalol and Procardia as an outpatient. She also follows with [facility] weekly. On admission, blood pressure was 145/91. At that time, she was given magnesium sulfate. Her blood pressure became stable after she has been resting. The next morning she developed some contractions and was given terbutaline subcutaneously. She did have biophysical profile which was 8 out of 8. Her BP got much better 120's/70's over the past few days. But, on 07/30, her syctolic BP has been in the 140's and diastolic in the 80-90's. On 07/30, toxemia labs were normal and BPP was 8/8. Today, pt denies any contraction, fluid leakage or bleeding. She reports good movement. Physical exam: Gnl: NAD Vital signs: temperature 98.8F, blood pressure 128/85, heart rate 73, respiration 18. FHT: 135 bpm, reactive. No decels. General: No acute distress. Abdomen soft, nontender, gravid , no palpable contractions. Neuro: Alert, awake, oriented 3. Breast exam: deferred Rectal: deferred. Extremities: no edema, no calf tenderness, no Homans sign. Labs: H&H has been stable. Assessment: 28-year-old female at 30 weeks and 6 days' gestation with superimposed preeclampsia on chronic hypertension. Magnesium sulfate was discontinued. Her blood pressure has been stable but increased again yesterday with systolic in the 140's and diastolic in the 80-90's. She is on labetalol and Procardia. baby has been stable. Plan 1. [facility] recommended to continue observation as in-patient. 2. Will continue blood pressure monitoring and the antihypertensive meds. 3. Will continue heart monitoring. Objective - Vital Signs Vital Signs: Vital Signs - 12hr 07/31/17 07/31/17 07/31/17 01:43 02:43 02:56 Temperature Pulse Rate 70 68 Respiratory 18 Rate Blood Pressure 142/87 138/94 Blood Pressure [Left] O2 Sat by Pulse Oximetry 07/31/17 07/31/17 07/31/17 03:02 03:44 04:06 Temperature 98.1 F Pulse Rate 70 72 Respiratory 18 Rate Blood Pressure 162/102 158/102 Blood Pressure [Left] O2 Sat by Pulse Oximetry 07/31/17 07/31/17 07/31/17 04:10 04:43 05:44 Temperature Pulse Rate 72 71 68 Respiratory Rate Blood Pressure 135/82 135/83 126/68 Blood Pressure [Left] O2 Sat by Pulse Oximetry 07/31/17 07/31/17 07/31/17 06:43 07:23 07:28 Temperature 97 F L Pulse Rate 75 75 79 Respiratory 20 Rate Blood Pressure 131/72 137/78 Blood Pressure 137/78 [Left] O2 Sat by Pulse 99 Oximetry 07/31/17 07/31/17 07/31/17 07:33 07:38 07:39 Temperature Pulse Rate 70 66 Respiratory 20 Rate Blood Pressure Blood Pressure [Left] O2 Sat by Pulse 100 99 Oximetry 07/31/17 07/31/17 07/31/17 07:43 07:44 07:48 Temperature Pulse Rate 80 73 63 Respiratory Rate Blood Pressure 138/81 Blood Pressure [Left] O2 Sat by Pulse 100 99 Oximetry 07/31/17 07/31/17 07/31/17 07:53 07:58 08:03 Temperature Pulse Rate 63 68 74 Respiratory Rate Blood Pressure Blood Pressure [Left] O2 Sat by Pulse 94 97 97 Oximetry 07/31/17 07/31/17 07/31/17 08:08 08:13 08:15 Temperature Pulse Rate 71 70 92 H Respiratory Rate Blood Pressure Blood Pressure [Left] O2 Sat by Pulse 97 98 94 Oximetry 07/31/17 07/31/17 07/31/17 08:18 08:23 08:25 Temperature Pulse Rate 116 H 103 H Respiratory Rate Blood Pressure Blood Pressure [Left] O2 Sat by Pulse 99 81 L 99 Oximetry 07/31/17 07/31/17 07/31/17 08:30 08:35 08:40 Temperature Pulse Rate 69 65 71 Respiratory Rate Blood Pressure Blood Pressure [Left] O2 Sat by Pulse 98 97 96 Oximetry 07/31/17 07/31/17 07/31/17 08:43 08:45 08:50 Temperature Pulse Rate 67 67 69 Respiratory Rate Blood Pressure 148/77 Blood Pressure [Left] O2 Sat by Pulse 96 96 Oximetry 07/31/17 07/31/17 07/31/17 08:55 09:12 09:14 Temperature Pulse Rate 73 81 78 Respiratory Rate Blood Pressure Blood Pressure [Left] O2 Sat by Pulse 98 80 L 88 Oximetry 07/31/17 07/31/17 07/31/17 09:19 09:24 09:29 Temperature Pulse Rate 78 66 69 Respiratory Rate Blood Pressure Blood Pressure [Left] O2 Sat by Pulse 98 97 97 Oximetry 07/31/17 07/31/17 07/31/17 09:34 09:39 09:44 Temperature Pulse Rate 71 89 71 Respiratory Rate Blood Pressure 137/81 Blood Pressure [Left] O2 Sat by Pulse 97 99 99 Oximetry 07/31/17 07/31/17 07/31/17 09:49 09:54 09:59 Temperature Pulse Rate 81 81 70 Respiratory Rate Blood Pressure Blood Pressure [Left] O2 Sat by Pulse 98 98 98 Oximetry 07/31/17 07/31/17 07/31/17 10:04 10:05 10:10 Temperature Pulse Rate 66 73 Respiratory Rate Blood Pressure Blood Pressure [Left] O2 Sat by Pulse 83 L 98 99 Oximetry 07/31/17 07/31/17 07/31/17 10:15 10:20 10:25 Temperature Pulse Rate 71 70 71 Respiratory Rate Blood Pressure Blood Pressure [Left] O2 Sat by Pulse 99 99 100 Oximetry 07/31/17 07/31/17 07/31/17 10:30 10:35 10:40 Temperature Pulse Rate 75 76 73 Respiratory Rate Blood Pressure Blood Pressure [Left] O2 Sat by Pulse 99 99 99 Oximetry 07/31/17 07/31/17 07/31/17 10:43 10:45 10:50 Temperature Pulse Rate 68 69 75 Respiratory Rate Blood Pressure 140/95 Blood Pressure [Left] O2 Sat by Pulse 99 98 Oximetry 07/31/17 07/31/17 07/31/17 10:55 11:00 11:05 Temperature Pulse Rate 72 69 71 Respiratory Rate Blood Pressure Blood Pressure [Left] O2 Sat by Pulse 98 97 98 Oximetry 07/31/17 07/31/17 07/31/17 11:10 11:15 11:20 Temperature Pulse Rate 98 H 64 70 Respiratory Rate Blood Pressure Blood Pressure [Left] O2 Sat by Pulse 98 98 98 Oximetry 07/31/17 07/31/17 07/31/17 11:25 11:30 11:35 Temperature Pulse Rate 82 70 76 Respiratory Rate Blood Pressure Blood Pressure [Left] O2 Sat by Pulse 98 98 98 Oximetry 07/31/17 07/31/17 07/31/17 11:39 11:40 11:43 Temperature Pulse Rate 83 73 72 Respiratory Rate Blood Pressure 133/88 133/88 Blood Pressure [Left] O2 Sat by Pulse 97 Oximetry 07/31/17 07/31/17 07/31/17 11:45 11:49 11:53 Temperature Pulse Rate 88 71 Respiratory Rate Blood Pressure Blood Pressure [Left] O2 Sat by Pulse 98 89 100 Oximetry 07/31/17 07/31/17 07/31/17 11:58 12:03 12:08 Temperature Pulse Rate 75 71 74 Respiratory Rate Blood Pressure Blood Pressure [Left] O2 Sat by Pulse 98 98 99 Oximetry 07/31/17 07/31/17 07/31/17 12:13 12:18 12:23 Temperature Pulse Rate 70 72 72 Respiratory Rate Blood Pressure Blood Pressure [Left] O2 Sat by Pulse 100 97 97 Oximetry 07/31/17 07/31/17 07/31/17 12:28 12:33 12:38 Temperature Pulse Rate 68 70 91 H Respiratory Rate Blood Pressure Blood Pressure [Left] O2 Sat by Pulse 98 98 98 Oximetry 07/31/17 07/31/17 07/31/17 12:43 12:48 12:49 Temperature Pulse Rate 97 H 78 76 Respiratory Rate Blood Pressure 136/92 Blood Pressure [Left] O2 Sat by Pulse 97 97 94 Oximetry 07/31/17 07/31/17 07/31/17 12:53 12:58 13:03 Temperature Pulse Rate 77 65 69 Respiratory Rate Blood Pressure Blood Pressure [Left] O2 Sat by Pulse 99 97 97 Oximetry - Labs Labs: Abnormal Labs 07/24/17 07/24/17 07/24/17 09:40 09:40 20:21 RBC 3.31 L Hgb Hct RDW 12.8 L Carbon Dioxide Creatinine 0.5 L Glucose Magnesium 5.20 H Total Protein Albumin Urine Creatinine Ur Total Protein 24 Hr Urine Total Protein 07/25/17 07/25/17 07/25/17 00:37 06:12 06:12 RBC 3.37 L Hgb Hct RDW 13.1 L Carbon Dioxide Creatinine 0.5 L Glucose Magnesium 5.20 H 5.80 H Total Protein Albumin Urine Creatinine Ur Total Protein 24 Hr Urine Total Protein 07/25/17 07/25/17 07/25/17 06:55 12:09 13:08 RBC Hgb Hct RDW Carbon Dioxide Creatinine Glucose Magnesium 5.80 H 5.90 H Total Protein Albumin Urine Creatinine 23.7 H Ur Total Protein 24 Hr 246.60 H Urine Total Protein < 4 L 07/25/17 07/30/17 07/30/17 20:18 13:00 13:00 RBC 3.07 L Hgb 9.9 L Hct 29.1 L RDW 12.9 L Carbon Dioxide 20 L Creatinine 0.5 L Glucose 114 H Magnesium 6.30 H Total Protein 6.2 L Albumin 3.1 L Urine Creatinine Ur Total Protein 24 Hr Urine Total Protein Laboratory Results - last 24 hr 07/30/17 07/30/17 13:00 13:00 WBC 7.1 RBC 3.07 L Hgb 9.9 L Hct 29.1 L MCV 95 MCH 32 MCHC 34 RDW 12.9 L Plt Count 161 Sodium 139 Potassium 3.8 Chloride 104.7 Carbon Dioxide 20 L Anion Gap 18 BUN 7 Creatinine 0.5 L Estimated GFR > 60 BUN/Creatinine Ratio 14.00 Glucose 114 H Uric Acid 6.1 Calcium 8.7 Total Bilirubin 0.20 AST 11 ALT 10 Alkaline Phosphatase 69 Total Protein 6.2 L Albumin 3.1 L Albumin/Globulin Ratio 1.0
--- NOTE | 2017-08-01 08:29 | Progress Note ---
Subjective - Subjective Date of service: 08/01/17 Principal diagnosis: chronic HTN Interval history: This patient is a 28 years old , EDC 10/01/17 at 30 weeks and 6 days who was admitted on July 24 with superimposed preeclampsia on chronic hypertension. She has a history of chronic hypertension and has been on labetalol and Procardia as an outpatient. She also follows with [facility] weekly. On admission, blood pressure was 145/91. At that time, she was given magnesium sulfate. Her blood pressure became stable after she has been resting. The next morning she developed some contractions and was given terbutaline subcutaneously. She did have biophysical profile which was 8 out of 8. Her BP got much better 120's/70's over the past few days. But, on 07/30, her syctolic BP has been in the 140's and diastolic in the 80-90's. On 07/30, toxemia labs were normal and BPP was 8/8. Today, pt denies any contraction, fluid leakage or bleeding. She reports good movement. Physical exam: Gnl: NAD Vital signs: temperature 98.8F, blood pressure 128/85, heart rate 73, respiration 18. FHT: 135 bpm, reactive. No decels. General: No acute distress. Abdomen soft, nontender, gravid , no palpable contractions. Neuro: Alert, awake, oriented 3. Breast exam: deferred Rectal: deferred. Extremities: no edema, no calf tenderness, no Homans sign. Labs: H&H has been stable. Assessment: 28-year-old female at 30 weeks and 6 days' gestation with superimposed preeclampsia on chronic hypertension. Magnesium sulfate was discontinued. Her blood pressure has been stable but increased again yesterday with systolic in the 140's and diastolic in the 80-90's. She is on labetalol and Procardia. baby has been stable. Plan 1. [facility] recommended to continue observation as in-patient. 2. Will continue blood pressure monitoring and the antihypertensive meds. 3. Will continue heart monitoring. Objective - Labs Labs: Abnormal Labs 07/24/17 07/24/17 07/24/17 09:40 09:40 20:21 RBC 3.31 L Hgb Hct RDW 12.8 L Carbon Dioxide Creatinine 0.5 L Glucose Magnesium 5.20 H Total Protein Albumin Urine Creatinine Ur Total Protein 24 Hr Urine Total Protein 07/25/17 07/25/17 07/25/17 00:37 06:12 06:12 RBC 3.37 L Hgb Hct RDW 13.1 L Carbon Dioxide Creatinine 0.5 L Glucose Magnesium 5.20 H 5.80 H Total Protein Albumin Urine Creatinine Ur Total Protein 24 Hr Urine Total Protein 07/25/17 07/25/17 07/25/17 06:55 12:09 13:08 RBC Hgb Hct RDW Carbon Dioxide Creatinine Glucose Magnesium 5.80 H 5.90 H Total Protein Albumin Urine Creatinine 23.7 H Ur Total Protein 24 Hr 246.60 H Urine Total Protein < 4 L 07/25/17 07/30/17 07/30/17 20:18 13:00 13:00 RBC 3.07 L Hgb 9.9 L Hct 29.1 L RDW 12.9 L Carbon Dioxide 20 L Creatinine 0.5 L Glucose 114 H Magnesium 6.30 H Total Protein 6.2 L Albumin 3.1 L Urine Creatinine Ur Total Protein 24 Hr Urine Total Protein
--- NOTE | 2017-08-01 08:41 | Progress Note ---
Subjective - Subjective Date of service: 08/01/17 Principal diagnosis: chronic HTN Interval history: This patient is a 28 years old , EDC 10/01/17 at 31 weeks who was admitted on July 24 with superimposed preeclampsia on chronic hypertension. She has a history of chronic hypertension and has been on labetalol and Procardia as an outpatient. She also follows with [facility] weekly. On admission, blood pressure was 145/91. At that time, she was given magnesium sulfate. Her blood pressure became stable after she has been resting. The next morning she developed some contractions and was given terbutaline subcutaneously. She did have biophysical profile which was 8 out of 8. Her BP got much better 120's/70's over the subsequent few days. But, on 07/30, her syctolic BP has been in the 140's and diastolic in the 80-90's. On 07/30, toxemia labs were normal twice and BPP has been 8/8. Today, pt denies any contraction, fluid leakage or bleeding. She reports good movement. Her headache has been managed with norco every 4-6 hrs. She describes it as a throbbing and sharp pain. She denies any dizziness but she has had occasional blurry vision in the right eye the day of her admission. She also has had vomitting when the hadache gets severe. Physical exam: Gnl: NAD Vital signs: temperature 98F, blood pressure 136/92, heart rate 78, respiration 18. FHT: 133 bpm, reactive. No decels. General: No acute distress. Abdomen soft, nontender, gravid , no palpable contractions. Neuro: Alert, awake, oriented 3. Breast exam: deferred Rectal: deferred. Pelvic: deferred. Extremities: no edema, no calf tenderness, no Homans sign. Labs: H&H 9.9/29.1. Assessment: 1. 28-year-old female at 30 weeks and 6 days' gestation with chronic hypertension. Magnesium sulfate was given and discontinued 4 days ago. Her blood pressure has been labile. She is on labetalol and Procardia. 2. Persistent hadaches accompanied by vomitting. 3. Previous 2 C/sections. 4. H/O contractions, resolved. 5. Anemia. Plan 1. [facility] recommended to continue observation as in-patient. 2. Will continue blood pressure monitoring and the antihypertensive meds. 3. Will continue heart monitoring. 4. Will get neurology consult today. 5. Iron sulfate 235 mg BID. Objective - Labs Labs: Abnormal Labs 07/24/17 07/24/17 07/24/17 09:40 09:40 20:21 RBC 3.31 L Hgb Hct RDW 12.8 L Carbon Dioxide Creatinine 0.5 L Glucose Magnesium 5.20 H Total Protein Albumin Urine Creatinine Ur Total Protein 24 Hr Urine Total Protein 07/25/17 07/25/17 07/25/17 00:37 06:12 06:12 RBC 3.37 L Hgb Hct RDW 13.1 L Carbon Dioxide Creatinine 0.5 L Glucose Magnesium 5.20 H 5.80 H Total Protein Albumin Urine Creatinine Ur Total Protein 24 Hr Urine Total Protein 07/25/17 07/25/17 07/25/17 06:55 12:09 13:08 RBC Hgb Hct RDW Carbon Dioxide Creatinine Glucose Magnesium 5.80 H 5.90 H Total Protein Albumin Urine Creatinine 23.7 H Ur Total Protein 24 Hr 246.60 H Urine Total Protein < 4 L 07/25/17 07/30/17 07/30/17 20:18 13:00 13:00 RBC 3.07 L Hgb 9.9 L Hct 29.1 L RDW 12.9 L Carbon Dioxide 20 L Creatinine 0.5 L Glucose 114 H Magnesium 6.30 H Total Protein 6.2 L Albumin 3.1 L Urine Creatinine Ur Total Protein 24 Hr Urine Total Protein
[2017-08-01] MEDS: NORCO 5/325 PO PRN ×2 (10:43→14:40)
[2017-08-01] MEDS: NORMODYNE PO SCH ×2 (10:44→21:49)
[2017-08-01] MEDS: PROCARDIA XL PO SCH (10:45)
[2017-08-01 16:37] LABS: Hematocrit 29.6 % (30.3-42.9); Hemoglobin 10.1 gm/dl (10.1-14.3); Mean Corpuscular HGB Conc 34 % (30-34); Mean Corpuscular Hemoglobin 32 pg (28-32); Mean Corpuscular Volume 94 fl (79-97); Platelet Count 167 K/mm3 (140-440); Red Blood Count 3.17 M/mm3 (3.65-5.03); Red Cell Distribution Width 12.8 % (13.2-15.2); White Blood Count 7.7 K/mm3 (4.5-11.0)
[2017-08-01 16:56] LABS: Alanine Aminotransferase 8 units/L (7-56); Lactate Dehydrogenase 104 units/L (91-180); Uric Acid 6.2 mg/dL (3.5-7.6)
[2017-08-01] MEDS: STADOL IV PRN (16:57)
[2017-08-01] MEDS: LACTATED RINGERS 1,000 ML IV SCH (16:59)
[2017-08-01] MEDS ORDERED: APRESOLINE IV ONE ×2 (17:00→17:32)
--- NOTE | 2017-08-01 17:44 | Progress Note ---
Subjective - Subjective Date of service: 08/01/17 Principal diagnosis: chronic HTN Interval history: This patient is a 28 years old , EDC 10/01/17 at 31 weeks who was admitted on July 24 with superimposed preeclampsia on chronic hypertension. She has a history of chronic hypertension and has been on labetalol and Procardia as an outpatient. She also follows with [facility] weekly. On admission, blood pressure was 145/91. At that time, she was given magnesium sulfate. Her blood pressure became stable after she has been resting. The next morning she developed some contractions and was given terbutaline subcutaneously. She did have biophysical profile which was 8 out of 8. Her BP got much better 120's/70's over the subsequent few days. But, on 07/30, her syctolic BP has been in the 140's and diastolic in the 80-90's. On 07/30, toxemia labs were normal and BPP has been 8/8. Today, pt denies any contraction , fluid leakage or bleeding. She reports good movement. Her headache has been managed with norco every 4-6 hrs. She describes it as a throbbing and sharp pain. She denies any dizziness but she has had occasional blurry vision in the right eye the day of her admission. She also has had vomitting when the hadache gets severe. In the afternoon of 08/01, patient's BP became elevated to 160/103, repeat was 152 104. Hydralazine was given. BP became 185/97. She reports throbbing headaches which is worse on the right side of her head. She denies RUQ pain, any contraction, bleeding, or fluid leakage per vagina. She reports good movement. Toxemia labs were normal. Physical exam: Gnl: NAD Vital signs: BP 185/97,HR 67, RR 18. FHT: 131 bpm, reactive. No decels. [place]: no contractions. General: No acute distress. Abdomen soft, nontender, gravid , no palpable contractions. Neuro: Alert, awake, oriented 3. Breast exam: deferred Rectal: deferred. Pelvic: deferred. Extremities: no edema, no calf tenderness, no Homans sign. Labs: H&H 10.1/29.6 (08/01). Uric acid 6.2, LFTs: WNL. Assessment: 1. 28-year-old female at 31 weeks gestation with chronic hypertension. Magnesium sulfate was given and discontinued 5 days ago. Her blood pressure has been labile. She has been on labetalol and Procardia. BP became elevated again to 160/103, repeat 152/104. Hydralazine was given. 2. Persistent hadaches accompanied by vomitting. 3. Previous 2 C/sections. 4. H/O contractions, resolved. 5. Anemia. Plan 1. [facility] recommended to continue observation as in-patient. Will call [facility] for consult. 2. Will start Magnesium sulfate. Will continue blood pressure monitoring and the antihypertensive meds. 3. Will continue heart monitoring. 4. Possible migraine attacks. [place] given. Neurology/hospitalist consult was called today. Dr. Green called back and said that he will come to see patient today. 5. Iron sulfate 235 mg BID. Objective - Vital Signs Vital Signs: Vital Signs - 12hr 08/01/17 08/01/17 08/01/17 09:37 10:43 10:44 Temperature 98.3 F Pulse Rate 88 Respiratory 16 16 Rate Blood Pressure 144/85 08/01/17 08/01/17 08/01/17 14:40 15:35 16:57 Temperature 98.2 F Pulse Rate Respiratory 16 16 16 Rate Blood Pressure 08/01/17 16:58 Temperature Pulse Rate 61 Respiratory Rate Blood Pressure 160/103 - Labs Labs: Abnormal Labs 07/24/17 07/24/17 07/24/17 09:40 09:40 20:21 RBC 3.31 L Hgb Hct RDW 12.8 L Carbon Dioxide Creatinine 0.5 L Glucose Magnesium 5.20 H Total Protein Albumin Urine Creatinine Ur Total Protein 24 Hr Urine Total Protein 07/25/17 07/25/17 07/25/17 00:37 06:12 06:12 RBC 3.37 L Hgb Hct RDW 13.1 L Carbon Dioxide Creatinine 0.5 L Glucose Magnesium 5.20 H 5.80 H Total Protein Albumin Urine Creatinine Ur Total Protein 24 Hr Urine Total Protein 07/25/17 07/25/17 07/25/17 06:55 12:09 13:08 RBC Hgb Hct RDW Carbon Dioxide Creatinine Glucose Magnesium 5.80 H 5.90 H Total Protein Albumin Urine Creatinine 23.7 H Ur Total Protein 24 Hr 246.60 H Urine Total Protein < 4 L 07/25/17 07/30/17 07/30/17 20:18 13:00 13:00 RBC 3.07 L Hgb 9.9 L Hct 29.1 L RDW 12.9 L Carbon Dioxide 20 L Creatinine 0.5 L Glucose 114 H Magnesium 6.30 H Total Protein 6.2 L Albumin 3.1 L Urine Creatinine Ur Total Protein 24 Hr Urine Total Protein 08/01/17 08/01/17 16:11 16:11 RBC 3.17 L Hgb Hct 29.6 L RDW 12.8 L Carbon Dioxide Creatinine 0.5 L Glucose Magnesium Total Protein Albumin Urine Creatinine Ur Total Protein 24 Hr Urine Total Protein Laboratory Results - last 24 hr 08/01/17 08/01/17 16:11 16:11 WBC 7.7 RBC 3.17 L Hgb 10.1 Hct 29.6 L MCV 94 MCH 32 MCHC 34 RDW 12.8 L Plt Count 167 Creatinine 0.5 L Estimated GFR > 60 Uric Acid 6.2 AST 10 ALT 8 Lactate Dehydrogenase 104
[2017-08-01] MEDS ORDERED: MAGNESIUM SULFATE 40GM/1000ML 40 GM/1,000 ML BAG IV SCH (17:45)
[2017-08-01] MEDS ORDERED: MAGNESIUM SULFATE IV ONE (17:46)
[2017-08-01 17:54] LABS: Bilirubin,Urine NEG (Negative); Blood,Urine SM (Negative); Ketones,Urine NEG (Negative); Leukocyte Esterase,Urine NEG (Negative); Nitrite,Urine NEG (Negative); Protein,Urine <15 mg/dL mg/dL (Negative); Urobilinogen,Urine < 2.0 mg/dL (<2.0); WBC,Urine < 1.0 /HPF (0.0-6.0)
[2017-08-01] MEDS ORDERED: MAGNESIUM SULFATE 4GM/100ML 4 GM/100 ML BAG IV SCH (18:00)
--- NOTE | 2017-08-01 19:12 | History and Physical Report ---
History of Present Illness Date of admission: 07/24/17 10:12 Chief complaint: My head hurts History of present illness: 26 YO Female with HTN, Preeclampsia @ 31 weeks gestation consulted for headache. Pt states that she has experienced headaches for the past year with gradual onset of symptoms for the past 1 day with worsening symptoms over the past 8 hours. Pain is 8-10/10, frontal, associated with nausea, photophobia, and relieved somewhat by being in the dark, pt acknowledges lacrimation, but denies dizziness, vision loss, vertigo, unintentional weight loss, night sweats , loss of bowel/bladder continence, or recent ill contacts. Past History Past Medical History: hypertension Past Surgical History: Social history: single, lives with family. denies: smoking, alcohol abuse, prescription drug abuse, IV drug use Family history: diabetes, hypertension Medications and Allergies Allergies Allergy/AdvReac Type Severity Reaction Status Date / Time No Known Allergies Allergy Verified 02/20/16 10:04 Home Medications Medication Instructions Recorded Confirmed Last Taken Type Ferrous Sulfate [Feosol] 325 mg PO QDAY 07/07/17 07/26/17 07/26/17 History Labetalol [Normodyne TAB] 300 mg PO BID 07/07/17 07/26/17 07/26/17 History NIFEdipine XL [Procardia Xl] 30 mg PO QDAY #30 tablet 07/10/17 07/26/17 Rx Vit No.130/Iron/FA 1 tab PO DAILY 07/17/17 07/26/17 07/26/17 History [ Tablet] Active Meds: Active Medications Acetaminophen/Hydrocodone Bitart ([place] 5/325) 1 each PO Q6H PRN PRN Reason: Pain, Moderate (4-6) Last Admin: 08/01/17 14:40 Dose: 1 each Butorphanol Tartrate (Stadol) 2 mg IV Q2H PRN PRN Reason: Labor Pain Last Admin: 08/01/17 16:57 Dose: 2 mg Magnesium Sulfate (Magnesium Sulfate 40gm/1000ml) 40 gm in 1,000 mls @ 50 mls/ hr IV DIRECT ANTIONE PRN Reason: 2 GM/HR Last Infusion: 07/26/17 08:15 Dose: Infused Lactated Ringer's (Lactated Ringers) 1,000 mls @ 125 mls/hr IV DIRECT ANTIONE Last Admin: 08/01/17 16:59 Dose: 125 mls/hr Magnesium Sulfate (Magnesium Sulfate 40gm/1000ml) 40 gm in 1,000 mls @ 50 mls/ hr IV DIRECT ANTIONE PRN Reason: 2 GM/HR Last Admin: 08/01/17 18:58 Dose: 2 gm/hr, 50 mls/hr Magnesium Sulfate (Magnesium Sulfate 4gm/100ml) 4 gm in 100 mls @ 400 mls/hr IV ONCE ANTIONE Last Admin: 08/01/17 18:30 Dose: 400 mls/hr Labetalol HCl (Normodyne) 300 mg PO BID ANTIONE Last Admin: 08/01/17 10:44 Dose: 300 mg Nifedipine (Procardia Xl) 30 mg PO QDAY ANTIONE Last Admin: 08/01/17 10:45 Dose: 30 mg Ondansetron HCl (Zofran) 4 mg IV Q8H PRN PRN Reason: Nausea And Vomiting Last Admin: 07/31/17 02:50 Dose: 4 mg Simethicone (Mylicon) 80 mg PO Q6H PRN PRN Reason: Gas pain Last Admin: 07/26/17 22:51 Dose: 80 mg Review of Systems Constitutional: no weight loss, no weight gain, no fever, no chills Ears, nose, mouth and throat: no ear pain, no ear discharge, no tinnitis, no decreased hearing, no nose pain, no nasal congestion, no nasal discharge, no sinus pressure Breasts: no change in shape, no swelling, no mass Cardiovascular: no chest pain, no orthopnea, no palpitations, no rapid/ irregular heart beat, no edema, no syncope, no lightheadedness Respiratory: no cough, no cough with sputum, no excessive sputum, no hemoptysis , no shortness of breath, no dyspnea on exertion Gastrointestinal: nausea, no abdominal pain, no vomiting, no diarrhea, no constipation, no change in bowel habits, no hematemesis, no coffee ground emesis Genitourinary Female: no pelvic pain, no flank pain, no menorrhagia, no dysuria , no urinary frequency Rectal: no pain, no incontinence, no bleeding Musculoskeletal: no neck stiffness, no neck pain, no shooting arm pain, no arm numbness/tingling, no low back pain, no shooting leg pain Integumentary: no rash, no pruritis, no redness, no sores, no wounds, no jaundice Neurological: headaches, migraines, no head injury, no transient paralysis, no weakness, no parathesias, no numbness, no tingling, no seizures, no syncope, no tremors, no ataxia, no lack of coordination Psychiatric: no anxiety, no memory loss, no change in sleep habits, no sleep disturbances, no insomnia, no hypersomnia, no change in appetite Endocrine: no cold intolerance, no heat intolerance, no polyphagia, no excessive thirst, no polydipsia, no polyuria, no nocturia, no excessive sweating Hematologic/Lymphatic: no easy bruising, no easy bleeding Allergic/Immunologic: no urticaria, no allergic rhinitis, no wheezing Exam - Constitutional Vitals: Temp Pulse Resp BP Pulse Ox 98.2 F 61 16 160/103 97 08/01/17 15:35 08/01/17 16:58 08/01/17 16:57 08/01/17 16:58 07/31/17 13:03 General appearance: Present: no acute distress - EENT Eyes: Present: PERRL ENT: hearing intact, clear oral mucosa - Neck Neck: Present: supple, normal ROM - Respiratory Respiratory effort: normal Respiratory: bilateral: CTA - Cardiovascular Heart Sounds: Present: S1 & S2. Absent: rub, click - Extremities Extremities: pulses symmetrical, No edema Peripheral Pulses: within normal limits - Abdominal General gastrointestinal: Present: soft, non-tender, non-distended, normal bowel sounds, other (Gravid uterus) Female genitourinary: Present: normal - Integumentary Integumentary: Present: clear, warm, dry - Musculoskeletal Musculoskeletal: gait normal, strength equal bilaterally - Psychiatric Psychiatric: appropriate mood/affect, intact judgment & insight - Neurologic Neurologic: CNII-XII intact, moves all extremities Results - Labs CBC & Chem 7: 08/02/17 01:55 08/01/17 16:11 Labs: Abnormal lab results 08/01/17 08/01/17 Range/Units 16:11 16:11 RBC 3.17 L (3.65-5.03) M/mm3 Hct 29.6 L (30.3-42.9) % RDW 12.8 L (13.2-15.2) % Creatinine 0.5 L (0.7-1.2) mg/dL Assessment and Plan - Patient Problems (1) Migraine headache with aura Current Visit: Yes Status: Acute Qualifiers: Status migrainosus presence: S Intractability: I Plan to address problem: Recommend Sumitriptan trial: low risks of harm based on human data, decrease light stimulation, will consider CT head without contrast if no improvement in symptoms, or worsening symptoms, (2) HTN (hypertension) Current Visit: Yes Status: Acute Qualifiers: Hypertension type: H Plan to address problem: continue current care, (3) Preeclampsia Current Visit: Yes Status: Acute Qualifiers: Trimester: T Plan to address problem: Continue current care as per deputy general counsel service
[2017-08-01] MEDS: ZOFRAN IV PRN (19:45)
[2017-08-01] MEDS: TYLENOL PO PRN (21:50)
[2017-08-02] MEDS: ZOFRAN IV PRN ×2 (01:06→21:04)
[2017-08-02] MEDS: NORCO 5/325 PO PRN ×2 (01:21→09:53)
[2017-08-02] MEDS: LACTATED RINGERS 1,000 ML IV SCH ×2 (01:23→10:39)
[2017-08-02 02:35] LABS: Hematocrit 29.8 % (30.3-42.9); Hemoglobin 10.3 gm/dl (10.1-14.3); Mean Corpuscular HGB Conc 34 % (30-34); Mean Corpuscular Hemoglobin 32 pg (28-32); Mean Corpuscular Volume 93 fl (79-97); Platelet Count 171 K/mm3 (140-440); Red Blood Count 3.21 M/mm3 (3.65-5.03)
[2017-08-02 02:54] LABS: Alanine Aminotransferase 8 units/L (7-56); Albumin 3.2 g/dL (3.9-5); Albumin/Globulin Ratio 0.9 %; Alkaline Phosphatase 77 units/L (35-129); Anion Gap 17 mmol/L; Bilirubin,Total < 0.20 mg/dL (0.1-1.2); Blood Urea Nitrogen 6 mg/dL (7-17); Calcium 7.8 mg/dL (8.4-10.2); Carbon Dioxide 20 mmol/L (22-30); Chloride 100.4 mmol/L (98-107); Glucose 93 mg/dL (65-100); Potassium 3.6 mmol/L (3.6-5.0); Sodium 134 mmol/L (137-145); Total Protein 6.8 g/dL (6.3-8.2)
[2017-08-02] MEDS ORDERED: IMITREX PO ONE (03:02)
[2017-08-02] MEDS ORDERED: APRESOLINE IV ONE (05:20)
--- NOTE | 2017-08-02 06:22 | Event Note ---
Date: 08/02/17 Late note: Patient with epigastric pain overnight associated with nausea and vomiting. HELLP labs were obtained and are within normal limits, Zofran administered with relief. Mag level 6.3, mag reduced to 1 g per hour. Internal medicine notes were reviewed, thanks. It appears she received 1 dose of sumatriptan early this AM, unsure of effect at this time as patient also received her dose of [place]. We'll need to discuss rescue dose steroids with MFM.
--- NOTE | 2017-08-02 07:22 | Ultrasound Report ---
ULTRASOUND BIOPHYSICAL PROFILE: History: well being, hypertension during Technique: Transabdominal ultrasound with Doppler interrogation. 0 - breathing movements 2 - movements 2 - posture and tone 2 - Qualitative amniotic fluid volume 6 - TOTAL SCORE OF POSSIBLE 8 Heart Rate (bpm) 121
--- NOTE | 2017-08-02 08:31 | Progress Note ---
Subjective - Subjective Date of service: 08/02/17 Principal diagnosis: chronic HTN Interval history: This patient is a 28 years old , EDC 10/01/17 at 31 weeks and 1 day gestation who was admitted on July 24 with superimposed preeclampsia on chronic hypertension. She has a history of chronic hypertension and has been on labetalol and Procardia as an outpatient. She also follows with [facility] weekly. On admission, blood pressure was 145/91. At that time, she was given magnesium sulfate. Her blood pressure became stable after she has been resting. The next morning she developed some contractions and was given terbutaline subcutaneously. She did have biophysical profile which was 8 out of 8. Her BP got much better 120's/70's over the subsequent few days. But, on 07/30, her syctolic BP has been in the 140's and diastolic in the 80-90's. On 07/30, toxemia labs were normal and BPP has been 8/8. Today, pt denies any contraction , fluid leakage or bleeding. She reports good movement. Her headache has been managed with norco every 4-6 hrs. She describes it as a throbbing and sharp pain. She denies any dizziness but she has had occasional blurry vision in the right eye the day of her admission. She also has had vomitting when the headache gets severe. In the afternoon of 08/01, patient's BP became elevated to 160/103, repeat was 152 104. Hydralazine was given. BP became 185/97. She was started on Mg sulfate for superimposed pre-eclampsia. Toxemia labs were sent, a 24-hr urine was started. She denies RUQ pain, any contraction, bleeding, or fluid leakage per vagina. She reports good movement. She reported throbbing headaches which is worse on the right side of her head and was unable to tolerate the light. Medical consult was called. Dr. Green saw the patient and gave her a trial of imitrex 25 mg. Today, she said that her headache has been better and her pain is now a 4-5 on a 10 scale since she took the imitrex early this AM. She denies any contractions , bleeding, or fluid leakage per vagina. She reports good movement. Physical exam: Gnl: NAD Vital signs: BP 143/90,HR 100, RR 18. T99F FHT: 129 bpm, reactive. No decels. [place]: no contractions. General: No acute distress. Abdomen soft, nontender, gravid , no palpable contractions. Neuro: Alert, awake, oriented 3. Breast exam: deferred Rectal: deferred. Pelvic: deferred. Extremities: no edema, no calf tenderness, no Homans sign. Labs: H&H 10.3/29.8 (08/01). Uric acid 6.2, LFTs: WNL. Mg level was 6.3 last night, 3.9 this am. BPP: 8/8 (08/01) 24-hr urine: in progress. Assessment: 1. 28-year-old female at 31 weeks and 1 day gestation with superimposed pre-eclampsia on chronic hypertension. She is on Magnesium sulfate. 2. Chronic HTN. 2. Persistent hadaches accompanied by vomitting. Possible migraine attacks. 3. Previous 2 C/sections. 4. H/O contractions, resolved. 5. Anemia. Plan 1. Last Mg level was 3.9 this AM after maintenance was decreased to 1gr/hr last night. Will increase Mg sulfate to 1.5 gm/hr today. Will monitor Mg level and urinary output. F/U 24-hr urine protein today. 2. Her blood pressure has been labile. Will continue labetalol 300 mg BID and Procardia 30 mg QD. Will continue blood pressure monitoring. 3. Will continue heart monitoring. 4. Migraines. Medical consult was done. Dr. Peter tan to see the patient. A trial dose of imitrex was given at 3:30 AM. Patient's headache has been better since the imitrex. If headache persists, will give another dose. 5. Iron sulfate 235 mg BID. Objective - Vital Signs Vital Signs: Vital Signs - 12hr 08/01/17 08/02/17 08/02/17 21:49 00:00 04:08 Temperature 98.5 F 99 F Pulse Rate 84 89 74 Respiratory 18 16 Rate Blood Pressure 149/99 Blood Pressure 122/72 126/76 [Left] O2 Sat by Pulse 98 97 Oximetry 08/02/17 08/02/17 08/02/17 05:15 05:45 06:15 Temperature Pulse Rate 80 Respiratory Rate Blood Pressure Blood Pressure 161/108 141/81 143/90 [Left] O2 Sat by Pulse Oximetry 08/02/17 08/02/17 06:30 08:00 Temperature 97.6 F Pulse Rate 75 Respiratory 20 Rate Blood Pressure Blood Pressure 141/80 135/77 [Left] O2 Sat by Pulse 99 Oximetry - Labs Labs: Abnormal Labs 07/24/17 07/24/17 07/24/17 09:40 09:40 20:21 RBC 3.31 L Hgb Hct RDW 12.8 L Sodium Carbon Dioxide BUN Creatinine 0.5 L Glucose Calcium Magnesium 5.20 H Total Protein Albumin Urine Creatinine Ur Total Protein 24 Hr Urine Total Protein 07/25/17 07/25/17 07/25/17 00:37 06:12 06:12 RBC 3.37 L Hgb Hct RDW 13.1 L Sodium Carbon Dioxide BUN Creatinine 0.5 L Glucose Calcium Magnesium 5.20 H 5.80 H Total Protein Albumin Urine Creatinine Ur Total Protein 24 Hr Urine Total Protein 07/25/17 07/25/17 07/25/17 06:55 12:09 13:08 RBC Hgb Hct RDW Sodium Carbon Dioxide BUN Creatinine Glucose Calcium Magnesium 5.80 H 5.90 H Total Protein Albumin Urine Creatinine 23.7 H Ur Total Protein 24 Hr 246.60 H Urine Total Protein < 4 L 07/25/17 07/30/17 07/30/17 20:18 13:00 13:00 RBC 3.07 L Hgb 9.9 L Hct 29.1 L RDW 12.9 L Sodium Carbon Dioxide 20 L BUN Creatinine 0.5 L Glucose 114 H Calcium Magnesium 6.30 H Total Protein 6.2 L Albumin 3.1 L Urine Creatinine Ur Total Protein 24 Hr Urine Total Protein 08/01/17 08/01/17 08/02/17 16:11 16:11 01:55 RBC 3.17 L Hgb Hct 29.6 L RDW 12.8 L Sodium 134 L Carbon Dioxide 20 L BUN 6 L Creatinine 0.5 L 0.5 L Glucose Calcium 7.8 L Magnesium Total Protein Albumin 3.2 L Urine Creatinine Ur Total Protein 24 Hr Urine Total Protein 08/02/17 08/02/17 01:55 01:55 RBC 3.21 L Hgb Hct 29.8 L RDW 13.0 L Sodium Carbon Dioxide BUN Creatinine Glucose Calcium Magnesium 3.90 H Total Protein Albumin Urine Creatinine Ur Total Protein 24 Hr Urine Total Protein Laboratory Results - last 24 hr 08/01/17 08/01/17 08/01/17 16:11 16:11 17:30 WBC 7.7 RBC 3.17 L Hgb 10.1 Hct 29.6 L MCV 94 MCH 32 MCHC 34 RDW 12.8 L Plt Count 167 Sodium Potassium Chloride Carbon Dioxide Anion Gap BUN Creatinine 0.5 L Estimated GFR > 60 BUN/Creatinine Ratio Glucose Uric Acid 6.2 Calcium Magnesium Total Bilirubin AST 10 ALT 8 Alkaline Phosphatase Lactate Dehydrogenase 104 Total Protein Albumin Albumin/Globulin Ratio Urine Color Red Urine Turbidity Clear Urine pH 7.0 Ur Specific [place] 1.003 Urine Protein <15 mg/dl Urine Glucose (UA) Neg Urine Ketones Neg Urine Blood Sm Urine Nitrite Neg Urine Bilirubin Neg Urine Urobilinogen < 2.0 Ur Leukocyte Esterase Neg Urine WBC (Auto) < 1.0 Urine RBC (Auto) 1.0 U Epithel Cells (Auto) < 1.0 Blood Type Antibody Screen 08/02/17 08/02/17 08/02/17 01:55 01:55 01:55 WBC 9.0 RBC 3.21 L Hgb 10.3 Hct 29.8 L MCV 93 MCH 32 MCHC 34 RDW 13.0 L Plt Count 171 Sodium 134 L Potassium 3.6 Chloride 100.4 Carbon Dioxide 20 L Anion Gap 17 BUN 6 L Creatinine 0.5 L Estimated GFR > 60 BUN/Creatinine Ratio 12.00 Glucose 93 Uric Acid Calcium 7.8 L Magnesium Total Bilirubin < 0.20 AST 11 ALT 8 Alkaline Phosphatase 77 Lactate Dehydrogenase Total Protein 6.8 Albumin 3.2 L Albumin/Globulin Ratio 0.9 Urine Color Urine Turbidity Urine pH Ur Specific [place] Urine Protein Urine Glucose (UA) Urine Ketones Urine Blood Urine Nitrite Urine Bilirubin Urine Urobilinogen Ur Leukocyte Esterase Urine WBC (Auto) Urine RBC (Auto) U Epithel Cells (Auto) Blood Type O POSITIVE Antibody Screen Negative 08/02/17 01:55 WBC RBC Hgb Hct MCV MCH MCHC RDW Plt Count Sodium Potassium Chloride Carbon Dioxide Anion Gap BUN Creatinine Estimated GFR BUN/Creatinine Ratio Glucose Uric Acid Calcium Magnesium 3.90 H Total Bilirubin AST ALT Alkaline Phosphatase Lactate Dehydrogenase Total Protein Albumin Albumin/Globulin Ratio Urine Color Urine Turbidity Urine pH Ur Specific [place] Urine Protein Urine Glucose (UA) Urine Ketones Urine Blood Urine Nitrite Urine Bilirubin Urine Urobilinogen Ur Leukocyte Esterase Urine WBC (Auto) Urine RBC (Auto) U Epithel Cells (Auto) Blood Type Antibody Screen
[2017-08-02] MEDS ORDERED: MAGNESIUM SULFATE 40GM/1000ML 40 GM/1,000 ML BAG IV SCH (09:00)
[2017-08-02] MEDS: NORMODYNE PO SCH ×2 (09:48→22:07)
[2017-08-02] MEDS: PROCARDIA XL PO SCH (09:50)
--- NOTE | 2017-08-02 10:39 | Progress Note ---
Assessment and Plan Assessment and plan: 26 YO Female with HTN, admitted for Preeclampsia @ 31 weeks gestation Medicine consulted for management of migraine headache (1) Migraine headache with aura Continue symmetric tone, improving (2) HTN (hypertension) continue current care, (3) Preeclampsia Continue current care as per addiction medicine physician service, on magnesium, labs are not consistent with HELLP syndrome, normal platelets, Hg, AST and Bilirubin levels History Interval history: States her headache is not improved in his left catholic, 5 out of 10. It was previously 10 out of 10 Hospitalist Physical - Physical exam Narrative exam: General.: Appears well, no distress, nontoxic HEENT: Moist mucous membranes, extraocular muscles intact, no lymphadenopathy Neck: supple Cardiac: S1-S2 heard Lungs: clear to auscultation bilaterally Abdomen: soft , nontender, nondistended, bowel sounds positive Gravid uterus Extremities: no edema clubbing or cyanosis Skin: no rash or lesions Neurologic: no gross focal deficits Psych: appropriate behavior, appropriate mood, corporative, judgment intact - Constitutional Vitals: Temp Pulse Resp BP Pulse Ox 97.9 F 79 20 140/79 98 08/02/17 09:57 08/02/17 10:40 08/02/17 09:57 08/02/17 10:35 08/02/17 10:40 General appearance: Present: no acute distress Results - Labs CBC & Chem 7: 08/02/17 01:55 08/02/17 01:55 Labs: Laboratory Last Values WBC 9.0 K/mm3 (4.5-11.0) 08/02/17 01:55 RBC 3.21 M/mm3 (3.65-5.03) L 08/02/17 01:55 Hgb 10.3 gm/dl (10.1-14.3) 08/02/17 01:55 Hct 29.8 % (30.3-42.9) L 08/02/17 01:55 MCV 93 fl (79-97) 08/02/17 01:55 MCH 32 pg (28-32) 08/02/17 01:55 MCHC 34 % (30-34) 08/02/17 01:55 RDW 13.0 % (13.2-15.2) L 08/02/17 01:55 Plt Count 171 K/mm3 (140-440) 08/02/17 01:55 Sodium 134 mmol/L (137-145) L 08/02/17 01:55 Potassium 3.6 mmol/L (3.6-5.0) 08/02/17 01:55 Chloride 100.4 mmol/L (98-107) 08/02/17 01:55 Carbon Dioxide 20 mmol/L (22-30) L 08/02/17 01:55 Anion Gap 17 mmol/L 08/02/17 01:55 BUN 6 mg/dL (7-17) L 08/02/17 01:55 Creatinine 0.5 mg/dL (0.7-1.2) L 08/02/17 01:55 Estimated GFR > 60 ml/min 08/02/17 01:55 BUN/Creatinine Ratio 12.00 % 08/02/17 01:55 Glucose 93 mg/dL (65-100) 08/02/17 01:55 Uric Acid 6.2 mg/dL (3.5-7.6) 08/01/17 16:11 Calcium 7.8 mg/dL (8.4-10.2) L 08/02/17 01:55 Magnesium 3.90 mg/dL (1.7-2.3) H 08/02/17 01:55 Total Bilirubin < 0.20 mg/dL (0.1-1.2) 08/02/17 01:55 AST 11 units/L (5-40) 08/02/17 01:55 ALT 8 units/L (7-56) 08/02/17 01:55 Alkaline Phosphatase 77 units/L (35-129) 08/02/17 01:55 Lactate Dehydrogenase 104 units/L (91-180) 08/01/17 16:11 Total Protein 6.8 g/dL (6.3-8.2) 08/02/17 01:55 Albumin 3.2 g/dL (3.9-5) L 08/02/17 01:55 Albumin/Globulin Ratio 0.9 % 08/02/17 01:55 Urine Color Red (Yellow) 08/01/17 17:30 Urine Turbidity Clear (Clear) 08/01/17 17:30 Urine pH 7.0 (5.0-7.0) 08/01/17 17:30 Ur Specific [place] 1.003 (1.003-1.030) 08/01/17 17:30 Urine Protein <15 mg/dl mg/dL (Negative) 08/01/17 17:30 Urine Glucose (UA) Neg mg/dL (Negative) 08/01/17 17:30 Urine Ketones Neg mg/dL (Negative) 08/01/17 17:30 Urine Blood Sm (Negative) 08/01/17 17:30 Urine Nitrite Neg (Negative) 08/01/17 17:30 Urine Bilirubin Neg (Negative) 08/01/17 17:30 Urine Urobilinogen < 2.0 mg/dL (<2.0) 08/01/17 17:30 Ur Leukocyte Esterase Neg (Negative) 08/01/17 17:30 Urine WBC (Auto) < 1.0 /HPF (0.0-6.0) 08/01/17 17:30 Urine RBC (Auto) 1.0 /HPF (0.0-6.0) 08/01/17 17:30 U Epithel Cells (Auto) < 1.0 /HPF (0-13.0) 08/01/17 17:30 Urine Bacteria (Auto) 1+ /HPF (Negative) 07/24/17 09:40 Urine Total Volume 6165 07/25/17 13:08 Urine Creatinine 23.7 mg/dL (0.1-20.0) H 07/25/17 13:08 Ur Creatinine 24 Hour 1.5 (0.8-2.8) 07/25/17 13:08 Ur Total Protein 24 Hr 246.60 (2-200) H 07/25/17 13:08 Urine Total Protein < 4 mg/dL (5-11.8) L 07/25/17 13:08 Blood Type O POSITIVE 08/02/17 01:55 Antibody Screen Negative 08/02/17 01:55
[2017-08-02] MEDS: TYLENOL PO PRN ×3 (14:23→22:08)
--- NOTE | 2017-08-02 16:40 | Progress Note ---
Subjective - Subjective Date of service: 08/02/17 Principal diagnosis: chronic HTN Interval history: This patient is a 28 years old , EDC 10/01/17 at 31 weeks and 1 day gestation who was admitted on July 24 with superimposed preeclampsia on chronic hypertension. She has a history of chronic hypertension and has been on labetalol and Procardia as an outpatient. She also follows with [facility] weekly. On admission, blood pressure was 145/91. At that time, she was given magnesium sulfate. Her blood pressure became stable after she has been resting. The next morning she developed some contractions and was given terbutaline subcutaneously. She did have biophysical profile which was 8 out of 8. Her BP got much better 120's/70's over the subsequent few days. But, on 07/30, her syctolic BP has been in the 140's and diastolic in the 80-90's. On 07/30, toxemia labs were normal and BPP has been 8/8. Today, pt denies any contraction , fluid leakage or bleeding. She reports good movement. Her headache has been managed with norco every 4-6 hrs. She describes it as a throbbing and sharp pain. She denies any dizziness but she has had occasional blurry vision in the right eye the day of her admission. She also has had vomitting when the headache gets severe. In the afternoon of 08/01, patient's BP became elevated to 160/103, repeat was 152 104. Hydralazine was given. BP became 185/97. She was started on Mg sulfate for superimposed pre-eclampsia. Toxemia labs were sent, a 24-hr urine was started. She denies RUQ pain, any contraction, bleeding, or fluid leakage per vagina. She reports good movement. She reported throbbing headaches which is worse on the right side of her head and was unable to tolerate the light. Medical consult was called. Dr. Green saw the patient and gave her a trial of imitrex 25 mg. Today, she said that her headache has been better and her pain is now a 4-5 on a 10 scale since she took the imitrex early this AM. She denies any contractions , bleeding, or fluid leakage per vagina. She reports good movement. Physical exam: Gnl: NAD Vital signs: BP 143/90,HR 100, RR 18. T99F FHT: 129 bpm, reactive. No decels. Walker: no contractions. General: No acute distress. Abdomen soft, nontender, gravid , no palpable contractions. Neuro: Alert, awake, oriented 3. Breast exam: deferred Rectal: deferred. Pelvic: deferred. Extremities: no edema, no calf tenderness, no Homans sign. Labs: H&H 10.3/29.8 (08/01). Uric acid 6.2, LFTs: WNL. Mg level was 6.3 last night, 3.9 this am. BPP: 8/8 (08/01) 24-hr urine: in progress. Assessment: 1. 28-year-old female at 31 weeks and 1 day gestation with superimposed pre-eclampsia on chronic hypertension. She is on Magnesium sulfate. 2. Chronic HTN. 2. Persistent hadaches accompanied by vomitting. Possible migraine attacks. 3. Previous 2 C/sections. 4. H/O contractions, resolved. 5. Anemia. Plan 1. Last Mg level was 3.9 this AM after maintenance was decreased to 1gr/hr last night. Will increase Mg sulfate to 1.5 gm/hr today. Will monitor Mg level and urinary output. F/U 24-hr urine protein today. 2. Her blood pressure has been labile. Will continue labetalol 300 mg BID and Procardia 30 mg QD. Will continue blood pressure monitoring. 3. Will continue heart monitoring. 4. Migraines. Medical consult was done. Dr. Peter tan to see the patient. A trial dose of imitrex was given at 3:30 AM. Patient's headache has been better since the imitrex. If headache persists, will give another dose. 5. Iron sulfate 235 mg BID. Objective - Vital Signs Vital Signs: Vital Signs - 12hr 08/02/17 08/02/17 08/02/17 05:15 05:45 06:15 Temperature Pulse Rate 80 Respiratory Rate Blood Pressure Blood Pressure 161/108 141/81 143/90 [Left] O2 Sat by Pulse Oximetry 08/02/17 08/02/17 08/02/17 06:30 08:00 09:13 Temperature 97.6 F Pulse Rate 75 Respiratory 20 Rate Blood Pressure Blood Pressure 141/80 135/77 [Left] O2 Sat by Pulse 99 83 L Oximetry 08/02/17 08/02/17 08/02/17 09:18 09:22 09:24 Temperature Pulse Rate 71 26 L Respiratory Rate Blood Pressure 135/89 Blood Pressure [Left] O2 Sat by Pulse 84 0 L Oximetry 08/02/17 08/02/17 08/02/17 09:29 09:35 09:40 Temperature Pulse Rate 30 L 80 57 L Respiratory Rate Blood Pressure 136/86 Blood Pressure [Left] O2 Sat by Pulse 82 L 81 L 83 L Oximetry 08/02/17 08/02/17 08/02/17 09:48 09:50 09:52 Temperature Pulse Rate 82 93 H 80 Respiratory Rate Blood Pressure 158/85 187/121 158/85 Blood Pressure [Left] O2 Sat by Pulse 83 L 99 Oximetry 08/02/17 08/02/17 08/02/17 09:55 09:57 10:00 Temperature 97.9 F Pulse Rate 85 79 79 Respiratory 20 Rate Blood Pressure Blood Pressure 158/85 [Left] O2 Sat by Pulse 98 99 98 Oximetry 08/02/17 08/02/17 08/02/17 10:05 10:10 10:15 Temperature Pulse Rate 73 73 82 Respiratory Rate Blood Pressure 154/81 Blood Pressure [Left] O2 Sat by Pulse 98 98 98 Oximetry 08/02/17 08/02/17 08/02/17 10:20 10:21 10:25 Temperature Pulse Rate 83 87 86 Respiratory Rate Blood Pressure 150/95 Blood Pressure [Left] O2 Sat by Pulse 98 99 Oximetry 08/02/17 08/02/17 08/02/17 10:31 10:35 10:40 Temperature Pulse Rate 80 82 79 Respiratory Rate Blood Pressure 140/79 Blood Pressure [Left] O2 Sat by Pulse 98 97 98 Oximetry 08/02/17 08/02/17 08/02/17 10:46 10:51 10:55 Temperature Pulse Rate 80 75 83 Respiratory Rate Blood Pressure 152/86 Blood Pressure [Left] O2 Sat by Pulse 98 98 98 Oximetry 08/02/17 08/02/17 08/02/17 11:00 11:05 11:11 Temperature Pulse Rate 85 89 79 Respiratory Rate Blood Pressure Blood Pressure [Left] O2 Sat by Pulse 98 99 98 Oximetry 08/02/17 08/02/17 08/02/17 11:16 11:20 11:21 Temperature 97.9 F Pulse Rate 79 84 85 Respiratory 20 Rate Blood Pressure Blood Pressure 145/86 [Left] O2 Sat by Pulse 98 98 98 Oximetry 08/02/17 08/02/17 08/02/17 11:22 11:26 11:30 Temperature Pulse Rate 73 83 89 Respiratory Rate Blood Pressure 145/86 Blood Pressure [Left] O2 Sat by Pulse 98 99 Oximetry 08/02/17 08/02/17 08/02/17 11:36 11:41 11:45 Temperature Pulse Rate 80 77 84 Respiratory Rate Blood Pressure Blood Pressure [Left] O2 Sat by Pulse 99 99 98 Oximetry 08/02/17 08/02/17 08/02/17 11:51 11:52 11:56 Temperature Pulse Rate 77 77 77 Respiratory Rate Blood Pressure 150/91 Blood Pressure [Left] O2 Sat by Pulse 99 99 Oximetry 08/02/17 08/02/17 08/02/17 12:01 12:05 12:09 Temperature 98.3 F Pulse Rate 79 78 Respiratory Rate Blood Pressure Blood Pressure [Left] O2 Sat by Pulse 99 99 Oximetry 08/02/17 08/02/17 08/02/17 12:11 12:16 12:21 Temperature Pulse Rate 72 79 87 Respiratory Rate Blood Pressure Blood Pressure [Left] O2 Sat by Pulse 99 99 99 Oximetry 08/02/17 08/02/17 08/02/17 12:22 12:25 12:31 Temperature Pulse Rate 80 84 77 Respiratory Rate Blood Pressure 147/92 Blood Pressure [Left] O2 Sat by Pulse 99 100 Oximetry 08/02/17 08/02/17 08/02/17 12:36 12:41 12:46 Temperature Pulse Rate 81 80 76 Respiratory Rate Blood Pressure Blood Pressure [Left] O2 Sat by Pulse 99 99 99 Oximetry 08/02/17 08/02/17 08/02/17 12:51 12:52 12:56 Temperature Pulse Rate 77 74 100 H Respiratory Rate Blood Pressure 141/88 Blood Pressure [Left] O2 Sat by Pulse 99 98 Oximetry 08/02/17 08/02/17 08/02/17 13:01 13:06 13:11 Temperature Pulse Rate 79 75 72 Respiratory Rate Blood Pressure Blood Pressure [Left] O2 Sat by Pulse 99 98 98 Oximetry 08/02/17 08/02/17 08/02/17 13:16 13:21 13:22 Temperature Pulse Rate 75 77 71 Respiratory Rate Blood Pressure 131/77 Blood Pressure [Left] O2 Sat by Pulse 98 98 Oximetry 08/02/17 08/02/17 08/02/17 13:26 13:31 13:36 Temperature Pulse Rate 79 74 79 Respiratory Rate Blood Pressure Blood Pressure [Left] O2 Sat by Pulse 98 98 98 Oximetry 08/02/17 08/02/17 08/02/17 13:41 13:46 13:51 Temperature Pulse Rate 100 H 78 73 Respiratory Rate Blood Pressure Blood Pressure [Left] O2 Sat by Pulse 99 98 98 Oximetry 08/02/17 08/02/17 08/02/17 13:54 13:56 14:16 Temperature Pulse Rate 80 40 L 74 Respiratory Rate Blood Pressure 167/99 Blood Pressure [Left] O2 Sat by Pulse 0 L 82 L Oximetry 08/02/17 08/02/17 08/02/17 14:17 14:18 14:22 Temperature Pulse Rate 74 84 80 Respiratory Rate Blood Pressure 139/88 138/88 Blood Pressure [Left] O2 Sat by Pulse 82 L 97 Oximetry 08/02/17 08/02/17 08/02/17 14:27 14:28 14:32 Temperature Pulse Rate 80 81 Respiratory Rate Blood Pressure Blood Pressure [Left] O2 Sat by Pulse 98 77 L 99 Oximetry 08/02/17 08/02/17 08/02/17 14:37 14:42 14:47 Temperature Pulse Rate 83 83 84 Respiratory Rate Blood Pressure Blood Pressure [Left] O2 Sat by Pulse 99 99 98 Oximetry 08/02/17 08/02/17 08/02/17 14:52 14:57 15:02 Temperature Pulse Rate 94 H 96 H 101 H Respiratory Rate Blood Pressure 126/74 Blood Pressure [Left] O2 Sat by Pulse 98 99 99 Oximetry 08/02/17 08/02/17 08/02/17 15:07 15:11 15:17 Temperature Pulse Rate 101 H 109 H 101 H Respiratory Rate Blood Pressure Blood Pressure [Left] O2 Sat by Pulse 98 100 99 Oximetry 08/02/17 08/02/17 08/02/17 15:22 15:24 15:27 Temperature Pulse Rate 101 H 85 95 H Respiratory Rate Blood Pressure 133/77 Blood Pressure [Left] O2 Sat by Pulse 99 99 Oximetry 08/02/17 08/02/17 08/02/17 15:32 15:37 15:42 Temperature Pulse Rate 94 H 83 97 H Respiratory Rate Blood Pressure Blood Pressure [Left] O2 Sat by Pulse 99 98 98 Oximetry 08/02/17 08/02/17 08/02/17 15:47 15:52 15:57 Temperature Pulse Rate 99 H 90 92 H Respiratory Rate Blood Pressure 122/71 Blood Pressure [Left] O2 Sat by Pulse 99 98 98 Oximetry 08/02/17 08/02/17 08/02/17 16:02 16:07 16:12 Temperature Pulse Rate 93 H 93 H 91 H Respiratory Rate Blood Pressure Blood Pressure [Left] O2 Sat by Pulse 98 98 99 Oximetry 08/02/17 08/02/17 08/02/17 16:17 16:22 16:27 Temperature Pulse Rate 86 84 95 H Respiratory Rate Blood Pressure 141/77 Blood Pressure [Left] O2 Sat by Pulse 98 98 98 Oximetry 08/02/17 08/02/17 08/02/17 16:32 16:37 16:42 Temperature Pulse Rate 87 85 86 Respiratory Rate Blood Pressure Blood Pressure [Left] O2 Sat by Pulse 99 99 99 Oximetry - Labs Labs: Abnormal Labs 07/24/17 07/24/17 07/24/17 09:40 09:40 20:21 RBC 3.31 L Hgb Hct RDW 12.8 L Sodium Carbon Dioxide BUN Creatinine 0.5 L Glucose Calcium Magnesium 5.20 H Total Protein Albumin Urine Creatinine Ur Total Protein 24 Hr Urine Total Protein 07/25/17 07/25/17 07/25/17 00:37 06:12 06:12 RBC 3.37 L Hgb Hct RDW 13.1 L Sodium Carbon Dioxide BUN Creatinine 0.5 L Glucose Calcium Magnesium 5.20 H 5.80 H Total Protein Albumin Urine Creatinine Ur Total Protein 24 Hr Urine Total Protein 07/25/17 07/25/17 07/25/17 06:55 12:09 13:08 RBC Hgb Hct RDW Sodium Carbon Dioxide BUN Creatinine Glucose Calcium Magnesium 5.80 H 5.90 H Total Protein Albumin Urine Creatinine 23.7 H Ur Total Protein 24 Hr 246.60 H Urine Total Protein < 4 L 07/25/17 07/30/17 07/30/17 20:18 13:00 13:00 RBC 3.07 L Hgb 9.9 L Hct 29.1 L RDW 12.9 L Sodium Carbon Dioxide 20 L BUN Creatinine 0.5 L Glucose 114 H Calcium Magnesium 6.30 H Total Protein 6.2 L Albumin 3.1 L Urine Creatinine Ur Total Protein 24 Hr Urine Total Protein 08/01/17 08/01/17 08/02/17 16:11 16:11 01:55 RBC 3.17 L Hgb Hct 29.6 L RDW 12.8 L Sodium 134 L Carbon Dioxide 20 L BUN 6 L Creatinine 0.5 L 0.5 L Glucose Calcium 7.8 L Magnesium Total Protein Albumin 3.2 L Urine Creatinine Ur Total Protein 24 Hr Urine Total Protein 08/02/17 08/02/17 08/02/17 01:55 01:55 14:25 RBC 3.21 L Hgb Hct 29.8 L RDW 13.0 L Sodium Carbon Dioxide BUN Creatinine Glucose Calcium Magnesium 3.90 H 4.00 H Total Protein Albumin Urine Creatinine Ur Total Protein 24 Hr Urine Total Protein Laboratory Results - last 24 hr 08/01/17 08/01/17 08/02/17 16:11 17:30 01:55 WBC RBC Hgb Hct MCV MCH MCHC RDW Plt Count Sodium 134 L Potassium 3.6 Chloride 100.4 Carbon Dioxide 20 L Anion Gap 17 BUN 6 L Creatinine 0.5 L 0.5 L Estimated GFR > 60 > 60 BUN/Creatinine Ratio 12.00 Glucose 93 Uric Acid 6.2 Calcium 7.8 L Magnesium Total Bilirubin < 0.20 AST 10 11 ALT 8 8 Alkaline Phosphatase 77 Lactate Dehydrogenase 104 Total Protein 6.8 Albumin 3.2 L Albumin/Globulin Ratio 0.9 Urine Color Red Urine Turbidity Clear Urine pH 7.0 Ur Specific [place] 1.003 Urine Protein <15 mg/dl Urine Glucose (UA) Neg Urine Ketones Neg Urine Blood Sm Urine Nitrite Neg Urine Bilirubin Neg Urine Urobilinogen < 2.0 Ur Leukocyte Esterase Neg Urine WBC (Auto) < 1.0 Urine RBC (Auto) 1.0 U Epithel Cells (Auto) < 1.0 Blood Type Antibody Screen 08/02/17 08/02/17 08/02/17 01:55 01:55 01:55 WBC 9.0 RBC 3.21 L Hgb 10.3 Hct 29.8 L MCV 93 MCH 32 MCHC 34 RDW 13.0 L Plt Count 171 Sodium Potassium Chloride Carbon Dioxide Anion Gap BUN Creatinine Estimated GFR BUN/Creatinine Ratio Glucose Uric Acid Calcium Magnesium 3.90 H Total Bilirubin AST ALT Alkaline Phosphatase Lactate Dehydrogenase Total Protein Albumin Albumin/Globulin Ratio Urine Color Urine Turbidity Urine pH Ur Specific [place] Urine Protein Urine Glucose (UA) Urine Ketones Urine Blood Urine Nitrite Urine Bilirubin Urine Urobilinogen Ur Leukocyte Esterase Urine WBC (Auto) Urine RBC (Auto) U Epithel Cells (Auto) Blood Type O POSITIVE Antibody Screen Negative 08/02/17 14:25 WBC RBC Hgb Hct MCV MCH MCHC RDW Plt Count Sodium Potassium Chloride Carbon Dioxide Anion Gap BUN Creatinine Estimated GFR BUN/Creatinine Ratio Glucose Uric Acid Calcium Magnesium 4.00 H Total Bilirubin AST ALT Alkaline Phosphatase Lactate Dehydrogenase Total Protein Albumin Albumin/Globulin Ratio Urine Color Urine Turbidity Urine pH Ur Specific [place] Urine Protein Urine Glucose (UA) Urine Ketones Urine Blood Urine Nitrite Urine Bilirubin Urine Urobilinogen Ur Leukocyte Esterase Urine WBC (Auto) Urine RBC (Auto) U Epithel Cells (Auto) Blood Type Antibody Screen
[2017-08-03] MEDS: STADOL IV PRN (00:32)
[2017-08-03] MEDS ORDERED: APRESOLINE IV PRN (00:34)
[2017-08-03] MEDS: TYLENOL PO PRN (07:49)
[2017-08-03] MEDS: NORCO 5/325 PO PRN ×2 (07:50→20:09)
[2017-08-03] MEDS: ZOFRAN IV PRN (07:55)
[2017-08-03] MEDS: NORMODYNE PO SCH ×2 (10:24→20:13)
[2017-08-03] MEDS: PROCARDIA XL PO SCH (10:29)
[2017-08-03] MEDS: LACTATED RINGERS 1,000 ML IV SCH ×2 (10:43→23:32)
--- NOTE | 2017-08-03 11:34 | Progress Note ---
Assessment and Plan - Patient Problems (1) 31 weeks gestation of Onset Date: 08/03/17 Current Visit: Yes Status: Acute Plan to address problem: A: IUP @ 31 4/7 weeks Chronic hypertension with superimposed preeclampsia - stable. Currently on Magnesium sulfate 1.5gm/hr, Labetolol and Procardia Chronic migraine headaches - improved P: Continue present management as per [facility] Appreciate Hospitalist input (2) Chronic hypertension with superimposed pre-eclampsia Onset Date: 07/07/17 Current Visit: No Status: Acute (3) Migraine headache with aura Onset Date: 08/03/17 Current Visit: Yes Status: Acute Qualifiers: Status migrainosus presence: with status migrainosus Intractability: intractable Qualified Code(s): G43.111 - Migraine with aura, intractable, with status migrainosus Subjective - Subjective Date of service: 08/03/17 Principal diagnosis: IUP @ 31 4/7 weeks; chronic HTN with superimposed preeclampsia Interval history: Patient is a 28 years old , EDC 10/01/17 at 31 4/7 weeks gestation who was admitted on July 24 with superimposed preeclampsia on chronic hypertension. She has a history of chronic hypertension and has been on labetalol and Procardia as an outpatient. On admission, blood pressure was 145/ 91. At that time, she was given magnesium sulfate. Her blood pressure became stable after she has been resting. The next morning she developed some contractions and was given terbutaline subcutaneously. Her BP got much better 120's/70's over the subsequent few days. But, on 07/30, her syctolic BP has been in the 140's and diastolic in the 80-90's. Toxemia labs were normal and BPP was 8/8. Then BP became stable again in the 120's/70's the next day. In the afternoon of 08/01, patient's BP became elevated to 160/103, repeat was 152 104. Hydralazine was given. BP became 185/97. She was started on Mg sulfate for superimposed pre-eclampsia. Toxemia labs were normal, and 24-hr urine protein was 216mg. She denies RUQ pain, any contraction, bleeding, or fluid leakage per vagina. She reports good movement. She reported throbbing headaches which is worse on the right side of her head and she was unable to tolerate the light. Medical consult was done. Imitrex 25 mg was given. Today her headache has been better, and denies any more headache or visual changes. She denies any contractions, bleeding, or fluid leakage per vagina. She reports good movement. Her BP is 138/98 and is still on Magnesium sulfate, and received IV Hydralazine @ 0030. Patient reports: movement normal, no new complaints, no loss of fluid, no vaginal bleeding, no contractions Objective - Vital Signs Vital Signs: Vital Signs - 12hr 08/02/17 08/03/17 08/03/17 23:53 00:01 00:03 Pulse Rate 95 H 86 88 Respiratory Rate Blood Pressure 160/101 168/104 141/82 O2 Sat by Pulse Oximetry 08/03/17 08/03/17 08/03/17 00:22 00:32 00:52 Pulse Rate 89 70 71 Respiratory 14 Rate Blood Pressure 145/101 121/71 122/70 O2 Sat by Pulse Oximetry 08/03/17 08/03/17 08/03/17 01:23 01:52 02:23 Pulse Rate 71 67 70 Respiratory Rate Blood Pressure 115/61 123/63 128/67 O2 Sat by Pulse Oximetry 08/03/17 08/03/17 08/03/17 02:52 03:23 03:52 Pulse Rate 88 70 80 Respiratory Rate Blood Pressure 130/65 109/55 109/62 O2 Sat by Pulse Oximetry 08/03/17 08/03/17 08/03/17 04:22 04:52 05:23 Pulse Rate 96 H 73 97 H Respiratory Rate Blood Pressure 112/70 127/74 138/86 O2 Sat by Pulse Oximetry 08/03/17 08/03/17 08/03/17 05:52 06:22 06:52 Pulse Rate 74 81 85 Respiratory Rate Blood Pressure 128/77 136/85 133/70 O2 Sat by Pulse Oximetry 08/03/17 08/03/17 08/03/17 07:22 07:53 08:22 Pulse Rate 79 74 82 Respiratory Rate Blood Pressure 125/80 133/86 125/80 O2 Sat by Pulse Oximetry 08/03/17 08/03/17 08/03/17 08:52 09:06 09:07 Pulse Rate 72 73 Respiratory Rate Blood Pressure 132/75 O2 Sat by Pulse 78 L 98 Oximetry 08/03/17 08/03/17 08/03/17 09:22 09:52 10:22 Pulse Rate 66 71 61 Respiratory Rate Blood Pressure 129/77 126/72 139/92 O2 Sat by Pulse Oximetry 08/03/17 08/03/17 08/03/17 10:24 10:52 11:23 Pulse Rate 61 73 82 Respiratory Rate Blood Pressure 139/92 140/95 138/98 O2 Sat by Pulse Oximetry - Exam Breasts: deferred Cardiovascular: Regular rate Lungs: Clear to auscultation Abdomen: Present: normal appearance, soft Uterus: Present: normal FHR: category 1 Uterine Contraction Monitor Mode: External Uterine Contraction Pattern: Absent - Labs Labs: Abnormal Labs 07/24/17 07/24/17 07/24/17 09:40 09:40 20:21 RBC 3.31 L Hgb Hct RDW 12.8 L Sodium Carbon Dioxide BUN Creatinine 0.5 L Glucose Calcium Magnesium 5.20 H Total Protein Albumin Urine Creatinine Ur Microalbumin 24 Hr Ur Total Protein 24 Hr Urine Total Protein 07/25/17 07/25/17 07/25/17 00:37 06:12 06:12 RBC 3.37 L Hgb Hct RDW 13.1 L Sodium Carbon Dioxide BUN Creatinine 0.5 L Glucose Calcium Magnesium 5.20 H 5.80 H Total Protein Albumin Urine Creatinine Ur Microalbumin 24 Hr Ur Total Protein 24 Hr Urine Total Protein 07/25/17 07/25/17 07/25/17 06:55 12:09 13:08 RBC Hgb Hct RDW Sodium Carbon Dioxide BUN Creatinine Glucose Calcium Magnesium 5.80 H 5.90 H Total Protein Albumin Urine Creatinine 23.7 H Ur Microalbumin 24 Hr Ur Total Protein 24 Hr 246.60 H Urine Total Protein < 4 L 07/25/17 07/30/17 07/30/17 20:18 13:00 13:00 RBC 3.07 L Hgb 9.9 L Hct 29.1 L RDW 12.9 L Sodium Carbon Dioxide 20 L BUN Creatinine 0.5 L Glucose 114 H Calcium Magnesium 6.30 H Total Protein 6.2 L Albumin 3.1 L Urine Creatinine Ur Microalbumin 24 Hr Ur Total Protein 24 Hr Urine Total Protein 08/01/17 08/01/17 08/02/17 16:11 16:11 01:55 RBC 3.17 L Hgb Hct 29.6 L RDW 12.8 L Sodium 134 L Carbon Dioxide 20 L BUN 6 L Creatinine 0.5 L 0.5 L Glucose Calcium 7.8 L Magnesium Total Protein Albumin 3.2 L Urine Creatinine Ur Microalbumin 24 Hr Ur Total Protein 24 Hr Urine Total Protein 08/02/17 08/02/17 08/02/17 01:55 01:55 14:25 RBC 3.21 L Hgb Hct 29.8 L RDW 13.0 L Sodium Carbon Dioxide BUN Creatinine Glucose Calcium Magnesium 3.90 H 4.00 H Total Protein Albumin Urine Creatinine Ur Microalbumin 24 Hr Ur Total Protein 24 Hr Urine Total Protein 08/02/17 08/02/17 08/03/17 17:30 18:16 00:35 RBC Hgb Hct RDW Sodium Carbon Dioxide BUN Creatinine Glucose Calcium Magnesium 4.00 H 4.60 H Total Protein Albumin Urine Creatinine 32.5 H Ur Microalbumin 24 Hr 45.0 H Ur Total Protein 24 Hr 216.00 H Urine Total Protein < 4 L 08/03/17 07:01 RBC Hgb Hct RDW Sodium Carbon Dioxide BUN Creatinine Glucose Calcium Magnesium 3.40 H Total Protein Albumin Urine Creatinine Ur Microalbumin 24 Hr Ur Total Protein 24 Hr Urine Total Protein Laboratory Results - last 24 hr 08/02/17 08/02/17 08/02/17 14:25 17:30 18:16 Magnesium 4.00 H 4.00 H Urine Total Volume 5400 Urine Creatinine 32.5 H Ur Creatinine 24 Hour 1.8 Urine Microalbumin < 1.2 Ur Microalbumin 24 Hr 45.0 H Ur Total Protein 24 Hr 216.00 H Urine Total Protein < 4 L 08/03/17 08/03/17 00:35 07:01 Magnesium 4.60 H 3.40 H Urine Total Volume Urine Creatinine Ur Creatinine 24 Hour Urine Microalbumin Ur Microalbumin 24 Hr Ur Total Protein 24 Hr Urine Total Protein
--- NOTE | 2017-08-03 11:35 | Progress Note ---
Assessment and Plan Assessment and plan: 26 YO Female with HTN, admitted for Preeclampsia @ 31 weeks gestation Medicine consulted for management of migraine headache (1) Migraine headache with aura Continue symmetric tone, improving (2) HTN (hypertension) continue current care, (3) Preeclampsia Continue current care as per [employer] specialist service, on magnesium, labs are not consistent with HELLP syndrome, normal platelets, Hg, AST and Bilirubin levels She is clinically improved, Medicine will sign off, pls reconsult if needed History Interval history: States her headache is not improved in his left protestant, 3 out of 10. It was previously 10 out of 10 Hospitalist Physical - Physical exam Narrative exam: General.: Appears well, no distress, nontoxic HEENT: Moist mucous membranes, extraocular muscles intact, no lymphadenopathy Neck: supple Cardiac: S1-S2 heard Lungs: clear to auscultation bilaterally Abdomen: soft , nontender, nondistended, bowel sounds positive Gravid uterus Extremities: no edema clubbing or cyanosis Skin: no rash or lesions Neurologic: no gross focal deficits Psych: appropriate behavior, appropriate mood, corporative, judgment intact - Constitutional Vitals: Temp Pulse Resp BP Pulse Ox 97.5 F L 82 14 138/98 98 08/02/17 21:17 08/03/17 11:23 08/03/17 00:32 08/03/17 11:23 08/03/17 09:07 General appearance: Present: no acute distress Results - Labs CBC & Chem 7: 08/02/17 01:55 08/02/17 01:55 Labs: Laboratory Last Values WBC 9.0 K/mm3 (4.5-11.0) 08/02/17 01:55 RBC 3.21 M/mm3 (3.65-5.03) L 08/02/17 01:55 Hgb 10.3 gm/dl (10.1-14.3) 08/02/17 01:55 Hct 29.8 % (30.3-42.9) L 08/02/17 01:55 MCV 93 fl (79-97) 08/02/17 01:55 MCH 32 pg (28-32) 08/02/17 01:55 MCHC 34 % (30-34) 08/02/17 01:55 RDW 13.0 % (13.2-15.2) L 08/02/17 01:55 Plt Count 171 K/mm3 (140-440) 08/02/17 01:55 Sodium 134 mmol/L (137-145) L 08/02/17 01:55 Potassium 3.6 mmol/L (3.6-5.0) 08/02/17 01:55 Chloride 100.4 mmol/L (98-107) 08/02/17 01:55 Carbon Dioxide 20 mmol/L (22-30) L 08/02/17 01:55 Anion Gap 17 mmol/L 08/02/17 01:55 BUN 6 mg/dL (7-17) L 08/02/17 01:55 Creatinine 0.5 mg/dL (0.7-1.2) L 08/02/17 01:55 Estimated GFR > 60 ml/min 08/02/17 01:55 BUN/Creatinine Ratio 12.00 % 08/02/17 01:55 Glucose 93 mg/dL (65-100) 08/02/17 01:55 Uric Acid 6.2 mg/dL (3.5-7.6) 08/01/17 16:11 Calcium 7.8 mg/dL (8.4-10.2) L 08/02/17 01:55 Magnesium 3.40 mg/dL (1.7-2.3) H 08/03/17 07:01 Total Bilirubin < 0.20 mg/dL (0.1-1.2) 08/02/17 01:55 AST 11 units/L (5-40) 08/02/17 01:55 ALT 8 units/L (7-56) 08/02/17 01:55 Alkaline Phosphatase 77 units/L (35-129) 08/02/17 01:55 Lactate Dehydrogenase 104 units/L (91-180) 08/01/17 16:11 Total Protein 6.8 g/dL (6.3-8.2) 08/02/17 01:55 Albumin 3.2 g/dL (3.9-5) L 08/02/17 01:55 Albumin/Globulin Ratio 0.9 % 08/02/17 01:55 Urine Color Red (Yellow) 08/01/17 17:30 Urine Turbidity Clear (Clear) 08/01/17 17:30 Urine pH 7.0 (5.0-7.0) 08/01/17 17:30 Ur Specific [place] 1.003 (1.003-1.030) 08/01/17 17:30 Urine Protein <15 mg/dl mg/dL (Negative) 08/01/17 17:30 Urine Glucose (UA) Neg mg/dL (Negative) 08/01/17 17:30 Urine Ketones Neg mg/dL (Negative) 08/01/17 17:30 Urine Blood Sm (Negative) 08/01/17 17:30 Urine Nitrite Neg (Negative) 08/01/17 17:30 Urine Bilirubin Neg (Negative) 08/01/17 17:30 Urine Urobilinogen < 2.0 mg/dL (<2.0) 08/01/17 17:30 Ur Leukocyte Esterase Neg (Negative) 08/01/17 17:30 Urine WBC (Auto) < 1.0 /HPF (0.0-6.0) 08/01/17 17:30 Urine RBC (Auto) 1.0 /HPF (0.0-6.0) 08/01/17 17:30 U Epithel Cells (Auto) < 1.0 /HPF (0-13.0) 08/01/17 17:30 Urine Bacteria (Auto) 1+ /HPF (Negative) 07/24/17 09:40 Urine Total Volume 5400 08/02/17 17:30 Urine Creatinine 32.5 mg/dL (0.1-20.0) H 08/02/17 17:30 Ur Creatinine 24 Hour 1.8 (0.8-2.8) 08/02/17 17:30 Urine Microalbumin < 1.2 mg/dL (0.1-34.0) 08/02/17 17:30 Ur Microalbumin 24 Hr 45.0 mcg/min (0-29) H 08/02/17 17:30 Ur Total Protein 24 Hr 216.00 (2-200) H 08/02/17 17:30 Urine Total Protein < 4 mg/dL (5-11.8) L 08/02/17 17:30 Blood Type O POSITIVE 08/02/17 01:55 Antibody Screen Negative 08/02/17 01:55
[2017-08-04] MEDS: NORCO 5/325 PO PRN (06:17)
[2017-08-04] MEDS: NORMODYNE PO SCH (10:23)
[2017-08-04] MEDS: PROCARDIA XL PO SCH (10:24)
--- NOTE | 2017-08-04 10:29 | Progress Note ---
Assessment and Plan - Patient Problems (1) 31 weeks gestation of Onset Date: 08/03/17 Current Visit: Yes Status: Acute Plan to address problem: A: IUP @ 31 5/7 weeks Chronic hypertension with superimposed preeclampsia - stable. Currently on Magnesium sulfate 1.5gm/hr, Labetolol and Procardia Chronic migraine headaches - improved Previous C Section P: Continue present management as per [facility] Consider outpatient management (2) Chronic hypertension with superimposed pre-eclampsia Onset Date: 07/07/17 Current Visit: No Status: Acute (3) Migraine headache with aura Onset Date: 08/03/17 Current Visit: Yes Status: Acute Qualifiers: Status migrainosus presence: with status migrainosus Intractability: intractable Qualified Code(s): G43.111 - Migraine with aura, intractable, with status migrainosus (4) Previous delivery affecting Onset Date: 08/04/17 Current Visit: Yes Status: Chronic Subjective - Subjective Date of service: 08/04/17 Principal diagnosis: IUP @ 31 5/7 weeks; chronic HTN with superimposed preeclampsia Interval history: Patient is a 28 years old , EDC 10/01/17 at 31 5/7 weeks gestation who was admitted on July 24 with superimposed preeclampsia on chronic hypertension. She has a history of chronic hypertension and has been on labetalol and Procardia as an outpatient. On admission, blood pressure was 145/ 91. At that time, she was given magnesium sulfate. Her blood pressure became stable after she has been resting. The next morning she developed some contractions and was given terbutaline subcutaneously. Her BP got much better 120's/70's over the subsequent few days. But, on 07/30, her syctolic BP has been in the 140's and diastolic in the 80-90's. Toxemia labs were normal and BPP was 8/8. Then BP became stable again in the 120's/70's the next day. In the afternoon of 08/01, patient's BP became elevated to 160/103, repeat was 152 104. Hydralazine was given. BP became 185/97. She was started on Mg sulfate for superimposed pre-eclampsia. Toxemia labs were normal, and 24-hr urine protein was 216mg. She denies RUQ pain, any contraction, bleeding, or fluid leakage per vagina. She reports good movement. She reported throbbing headaches which is worse on the right side of her head and she was unable to tolerate the light. Medical consult was done. Imitrex 25 mg was given, and has subsequently resolved. Today she denies any more headache or visual changes. She denies any contractions, bleeding, or fluid leakage per vagina. She reports good movement and her BP is 129/81 and is still on Magnesium sulfate 1.5g/hr. Patient reports: movement normal, no new complaints, no loss of fluid, no vaginal bleeding, no contractions Objective - Vital Signs Vital Signs: Vital Signs - 12hr 08/03/17 08/03/17 08/04/17 22:31 23:32 00:31 Temperature Pulse Rate 76 70 77 Respiratory Rate Blood Pressure 117/63 123/65 123/68 Blood Pressure [Left] 08/04/17 08/04/17 08/04/17 01:32 02:31 03:31 Temperature Pulse Rate 67 69 75 Respiratory Rate Blood Pressure 113/71 127/79 135/79 Blood Pressure [Left] 08/04/17 08/04/17 08/04/17 04:31 05:32 06:00 Temperature 98.1 F Pulse Rate 86 80 80 Respiratory 16 Rate Blood Pressure 143/94 140/84 Blood Pressure 140/84 [Left] 08/04/17 08/04/17 08/04/17 06:32 07:31 08:31 Temperature Pulse Rate 68 66 73 Respiratory Rate Blood Pressure 131/72 139/78 116/64 Blood Pressure [Left] 08/04/17 09:32 Temperature Pulse Rate 73 Respiratory Rate Blood Pressure 119/59 Blood Pressure [Left] - Exam Cardiovascular: Regular rate Lungs: Clear to auscultation Abdomen: Present: normal appearance, soft Uterus: Present: normal FHR: category 1 Uterine Contraction Monitor Mode: External Uterine Contraction Pattern: Absent - Labs Labs: Abnormal Labs 07/24/17 07/24/17 07/24/17 09:40 09:40 20:21 RBC 3.31 L Hgb Hct RDW 12.8 L Sodium Carbon Dioxide BUN Creatinine 0.5 L Glucose Calcium Magnesium 5.20 H Total Protein Albumin Urine Creatinine Ur Microalbumin 24 Hr Ur Total Protein 24 Hr Urine Total Protein 07/25/17 07/25/17 07/25/17 00:37 06:12 06:12 RBC 3.37 L Hgb Hct RDW 13.1 L Sodium Carbon Dioxide BUN Creatinine 0.5 L Glucose Calcium Magnesium 5.20 H 5.80 H Total Protein Albumin Urine Creatinine Ur Microalbumin 24 Hr Ur Total Protein 24 Hr Urine Total Protein 07/25/17 07/25/17 07/25/17 06:55 12:09 13:08 RBC Hgb Hct RDW Sodium Carbon Dioxide BUN Creatinine Glucose Calcium Magnesium 5.80 H 5.90 H Total Protein Albumin Urine Creatinine 23.7 H Ur Microalbumin 24 Hr Ur Total Protein 24 Hr 246.60 H Urine Total Protein < 4 L 07/25/17 07/30/17 07/30/17 20:18 13:00 13:00 RBC 3.07 L Hgb 9.9 L Hct 29.1 L RDW 12.9 L Sodium Carbon Dioxide 20 L BUN Creatinine 0.5 L Glucose 114 H Calcium Magnesium 6.30 H Total Protein 6.2 L Albumin 3.1 L Urine Creatinine Ur Microalbumin 24 Hr Ur Total Protein 24 Hr Urine Total Protein 08/01/17 08/01/17 08/02/17 16:11 16:11 01:55 RBC 3.17 L Hgb Hct 29.6 L RDW 12.8 L Sodium 134 L Carbon Dioxide 20 L BUN 6 L Creatinine 0.5 L 0.5 L Glucose Calcium 7.8 L Magnesium Total Protein Albumin 3.2 L Urine Creatinine Ur Microalbumin 24 Hr Ur Total Protein 24 Hr Urine Total Protein 08/02/17 08/02/17 08/02/17 01:55 01:55 14:25 RBC 3.21 L Hgb Hct 29.8 L RDW 13.0 L Sodium Carbon Dioxide BUN Creatinine Glucose Calcium Magnesium 3.90 H 4.00 H Total Protein Albumin Urine Creatinine Ur Microalbumin 24 Hr Ur Total Protein 24 Hr Urine Total Protein 08/02/17 08/02/17 08/03/17 17:30 18:16 00:35 RBC Hgb Hct RDW Sodium Carbon Dioxide BUN Creatinine Glucose Calcium Magnesium 4.00 H 4.60 H Total Protein Albumin Urine Creatinine 32.5 H Ur Microalbumin 24 Hr 45.0 H Ur Total Protein 24 Hr 216.00 H Urine Total Protein < 4 L 08/03/17 08/03/17 08/03/17 07:01 11:24 19:05 RBC Hgb Hct RDW Sodium Carbon Dioxide BUN Creatinine Glucose Calcium Magnesium 3.40 H 4.50 H 4.50 H Total Protein Albumin Urine Creatinine Ur Microalbumin 24 Hr Ur Total Protein 24 Hr Urine Total Protein Laboratory Results - last 24 hr 08/03/17 08/03/17 11:24 19:05 Magnesium 4.50 H 4.50 H
--- NOTE | 2017-08-04 16:42 | Discharge Summary ---
Providers - Providers Date of Admission: 07/24/17 10:12 Date of discharge: 08/04/17 Attending physician: MCKENZIE BENAVIDES MD 07/29/17 20:29 Consult to Physician [CONS] Urgent Consulting Provider: SUSANNAH FARMER I Reason For Exam: IUP @ 30 weeks; Chronic hypertension/Preeclampsia Place consult to:: MICHELLE Notified:: MICHELLE Phone number called:: [phone] Was contact made?: Yes If yes, spoke with:: Radha Time called:: 20:32 Primary care physician: MCKENZIE BENAVIDES MD Hospitalization Reason for admission: IUP - , observation, other (IUP @ 30 weeks; Chronic hypertension with superimposed preeclampsia) Other procedures: none complications: none Discharge diagnosis: other (IUP @ 31 5/7 weeks; Chronic hypertension with superimposed preeclampsia - stable) Hospital course: Patient is a 28 years old , EDC 10/01/17 at 31 5/7 weeks gestation who was admitted on July 24 with superimposed preeclampsia on chronic hypertension. She has a history of chronic hypertension and has been on labetalol and Procardia as an outpatient. On admission, blood pressure was 145/ 91. At that time, she was given magnesium sulfate. Her blood pressure became stable after she has been resting. The next morning she developed some contractions and was given terbutaline subcutaneously. Her BP got much better 120's/70's over the subsequent few days. But, on 07/30, her syctolic BP has been in the 140's and diastolic in the 80-90's. Toxemia labs were normal and BPP was 8/8. Then BP became stable again in the 120's/70's the next day. In the afternoon of 08/01, patient's BP became elevated to 160/103, repeat was 152 104. Hydralazine was given. BP became 185/97. She was started on Mg sulfate for superimposed pre-eclampsia. Toxemia labs were normal, and 24-hr urine protein was 216mg. She denies RUQ pain, any contraction, bleeding, or fluid leakage per vagina. She reports good movement. She reported throbbing headaches which is worse on the right side of her head and she was unable to tolerate the light. Medical consult was done. Imitrex 25 mg was given, and has subsequently resolved. Today she denies any more headache or visual changes. She denies any contractions, bleeding, or fluid leakage per vagina. She reports good movement and her BP is 129/81 and is still on Magnesium sulfate 1.5g/hr. I discussed with Dr Chacon (MICHELLE) to d/c Magnesium sulfate and observe x 4hrs. If BP's remain stable she can be discharged home with follow up with MICHELLE next week. Condition at discharge: Good Disposition: DC-01 TO HOME OR SELFCARE - Discharge Diagnoses (1) 31 weeks gestation of Status: Acute (2) Chronic hypertension with superimposed pre-eclampsia Status: Chronic (3) Migraine headache with aura Status: Resolved Qualifiers: Status migrainosus presence: with status migrainosus Intractability: intractable Qualified Code(s): G43.111 - Migraine with aura, intractable, with status migrainosus (4) Previous delivery affecting Status: Chronic Plan - Discharge Medications Prescriptions: Labetalol [Normodyne TAB] 300 mg PO BID #60 tablet NIFEdipine XL [Procardia Xl] 30 mg PO QDAY #30 tablet - Provider Discharge Summary Activity: routine, no sex for 6 weeks, no heavy lifting 4 weeks, no strenuous exercise Diet: routine Instructions: routine Additional instructions: [] Smoking cessation referral if applicable(refer to patient education folder for contact #) [] Refer to [facility] Booklet Call your doctor immediately for: * Fever > 100.5 * Heavy vaginal bleeding ( >1 pad per hour) * Severe persistent headache * Shortness of breath * Reddened, hot, painful area to leg or breast * Drainage or odor from incision. * Keep incision clean and dry at all times and follow doctor's instructions regarding bathing/showering - Follow up plan Follow up: MCKENZIE BENAVIDES MD [Primary Care Provider] - 3 Days SHERITA CHACON MD [Staff Physician] - 3 Days
[2017-08-04 17:30] VITALS: BP 131/84
== END 2017-08-04 17:30 | disposition home or self-care (01) | DRG 781 ==
LOC: TRG 09:13 → LD 10:12
PROVIDERS: ADMIT Obstetrics & Gynecology; ATTEND Obstetrics & Gynecology
DX: O10.913 Unspecified pre-existing hypertension complicating pregnancy, third trimester (principal); O11.3 Pre-existing hypertension with pre-eclampsia, third trimester; Z3A.30 30 weeks gestation of pregnancy; O34.211 Maternal care for low transverse scar from previous cesarean delivery; G43.109 Migraine with aura, not intractable, without status migrainosus; D64.9 Anemia, unspecified; Z83.3 Family history of diabetes mellitus; Z82.49 Family history of ischemic heart disease and other diseases of the circulatory system; O75.89 Other specified complications of labor and delivery; O99.013 Anemia complicating pregnancy, third trimester
CPT/HCPCS: 36415; 59025; 76815; 76819; 80053; 81001; 82043; 82565; 82570; 83615; 83735; 84156; 84450; 84460; 84550; 85027; 86850; 86900; 86901; J0360; J0595; J2405; J3105; J3475; J7120

== ENCOUNTER 2017-08-07 13:02 | Inpatient (IN) | payer MEDICAID ==
[2017-08-07 15:08] LABS: Bacteria,Urine 1+ /HPF (Negative); Bilirubin,Urine NEG (Negative); Blood,Urine NEG (Negative); Ketones,Urine NEG (Negative); Leukocyte Esterase,Urine NEG (Negative); Mucus,Urine FEW /HPF; Nitrite,Urine NEG (Negative); Protein,Urine <15 mg/dL mg/dL (Negative); Urobilinogen,Urine < 2.0 mg/dL (<2.0)
[2017-08-07 15:12] LABS: Hematocrit 33.8 % (30.3-42.9); Hemoglobin 11.3 gm/dl (10.1-14.3); Mean Corpuscular HGB Conc 33 % (30-34); Mean Corpuscular Hemoglobin 31 pg (28-32); Mean Corpuscular Volume 93 fl (79-97); Platelet Count 237 K/mm3 (140-440); Red Blood Count 3.62 M/mm3 (3.65-5.03); Red Cell Distribution Width 12.7 % (13.2-15.2); White Blood Count 7.5 K/mm3 (4.5-11.0)
--- NOTE | 2017-08-07 15:13 | History and Physical Report ---
History of Present Illness Date of examination: 08/07/17 Date of admission: 08/07/17 13:02 Past History - Obstetrical History : 4 Medications and Allergies Allergies Allergy/AdvReac Type Severity Reaction Status Date / Time No Known Allergies Allergy Verified 02/20/16 10:04 Home Medications Medication Instructions Recorded Confirmed Last Taken Type NIFEdipine XL [Procardia Xl] 30 mg PO QDAY #30 tablet 07/10/17 08/07/17 07:30 Rx 30 Labetalol [Normodyne TAB] 300 mg PO BID #60 tablet 08/04/17 08/07/17 08/07/17 07 :30 Rx 300 - Vital Signs Vital signs: Vital Signs Pulse BP 76 124/76 08/07/17 13:48 08/07/17 13:48 Temp Pulse Resp BP Pulse Ox 85 122/81 08/07/17 15:12 08/07/17 15:12 Results All other labs normal. Assessment and Plan - Patient Problems (1) 32 weeks gestation of Onset Date: ~08/07/17 Current Visit: Yes Status: Acute
[2017-08-07 15:34] LABS: Alanine Aminotransferase 9 units/L (7-56); Lactate Dehydrogenase 134 units/L (91-180); Uric Acid 6.1 mg/dL (3.5-7.6)
[2017-08-07] MEDS ORDERED: IMITREX PO ONE (16:58)
[2017-08-07] MEDS ORDERED: MINERAL OIL PO PRN (18:14)
[2017-08-07 19:23] LABS: Hematocrit 35.3 % (30.3-42.9); Hemoglobin 11.9 gm/dl (10.1-14.3); Mean Corpuscular HGB Conc 34 % (30-34); Mean Corpuscular Hemoglobin 31 pg (28-32); Mean Corpuscular Volume 93 fl (79-97); Platelet Count 258 K/mm3 (140-440); Red Cell Distribution Width 12.9 % (13.2-15.2); White Blood Count 7.7 K/mm3 (4.5-11.0)
[2017-08-07] MEDS ORDERED: AMBIEN PO PRN (21:08)
[2017-08-07] MEDS: NORMODYNE PO SCH (21:27)
[2017-08-08] MEDS ORDERED: LACTATED RINGERS 1,000 ML ONE ×2 (00:22→01:05)
--- NOTE | 2017-08-08 08:53 | Progress Note ---
Assessment and Plan - Patient Problems (1) 32 weeks gestation of Onset Date: ~08/07/17 Current Visit: Yes Status: Acute Subjective - Subjective Date of service: 08/08/17 Principal diagnosis: HTN Objective - Vital Signs Vital Signs: Vital Signs - 12hr 08/07/17 08/07/17 08/07/17 20:57 21:33 21:43 Temperature Pulse Rate 76 74 75 Respiratory Rate Blood Pressure 149/96 130/90 136/79 08/07/17 08/07/17 08/07/17 21:57 22:12 22:27 Temperature Pulse Rate 75 78 82 Respiratory Rate Blood Pressure 119/84 129/88 127/87 08/07/17 08/07/17 08/07/17 22:42 22:57 23:13 Temperature Pulse Rate 84 79 83 Respiratory Rate Blood Pressure 126/89 129/85 128/82 08/07/17 08/07/17 08/07/17 23:27 23:42 23:58 Temperature Pulse Rate 85 79 82 Respiratory Rate Blood Pressure 112/69 110/70 134/100 08/08/17 08/08/17 08/08/17 00:12 00:27 00:42 Temperature Pulse Rate 90 92 H 80 Respiratory Rate Blood Pressure 133/88 126/85 126/84 08/08/17 08/08/17 08/08/17 00:59 01:15 01:27 Temperature Pulse Rate 74 78 85 Respiratory Rate Blood Pressure 124/84 127/87 131/93 08/08/17 08/08/17 08/08/17 01:42 01:57 02:43 Temperature Pulse Rate 86 84 79 Respiratory Rate Blood Pressure 120/81 116/75 136/97 08/08/17 08/08/17 08/08/17 02:57 03:13 03:28 Temperature Pulse Rate 88 75 Respiratory Rate Blood Pressure 135/93 135/94 133/83 08/08/17 08/08/17 08/08/17 03:42 03:57 04:12 Temperature Pulse Rate 74 80 86 Respiratory Rate Blood Pressure 144/81 135/76 140/101 08/08/17 08/08/17 08/08/17 04:27 04:42 04:57 Temperature Pulse Rate 100 H 78 93 H Respiratory Rate Blood Pressure 125/78 115/65 120/74 08/08/17 08/08/17 08/08/17 05:13 05:27 05:42 Temperature Pulse Rate 84 75 81 Respiratory Rate Blood Pressure 124/73 121/71 121/74 08/08/17 08/08/17 08/08/17 05:57 06:12 06:29 Temperature Pulse Rate 81 77 78 Respiratory Rate Blood Pressure 120/70 139/79 118/90 08/08/17 08/08/17 08/08/17 06:43 06:57 07:27 Temperature Pulse Rate 82 76 84 Respiratory Rate Blood Pressure 118/73 128/79 126/84 08/08/17 08/08/17 08/08/17 07:42 07:58 08:13 Temperature Pulse Rate 80 100 H 80 Respiratory Rate Blood Pressure 128/91 131/83 132/89 08/08/17 08/08/17 08:27 08:43 Temperature 96.6 F L Pulse Rate 74 76 Respiratory 20 Rate Blood Pressure 123/88 131/90 - Labs Labs: Abnormal Labs 08/07/17 08/07/17 08/07/17 13:25 13:25 19:03 RBC 3.62 L RDW 12.7 L 12.9 L Creatinine 0.5 L Laboratory Results - last 24 hr 08/07/17 08/07/17 08/07/17 11:47 13:25 13:25 WBC 7.5 RBC 3.62 L Hgb 11.3 Hct 33.8 MCV 93 MCH 31 MCHC 33 RDW 12.7 L Plt Count 237 Creatinine 0.5 L Estimated GFR > 60 Uric Acid 6.1 AST 9 ALT 9 Lactate Dehydrogenase 134 Urine Color Yellow Urine Turbidity Clear Urine pH 6.0 Ur Specific [place] 1.010 Urine Protein <15 mg/dl Urine Glucose (UA) Neg Urine Ketones Neg Urine Blood Neg Urine Nitrite Neg Urine Bilirubin Neg Urine Urobilinogen < 2.0 Ur Leukocyte Esterase Neg Urine WBC (Auto) 2.0 Urine RBC (Auto) 1.0 U Epithel Cells (Auto) 2.0 Urine Bacteria (Auto) 1+ Urine Mucus Few 08/07/17 19:03 WBC 7.7 RBC 3.80 Hgb 11.9 Hct 35.3 MCV 93 MCH 31 MCHC 34 RDW 12.9 L Plt Count 258 Creatinine Estimated GFR Uric Acid AST ALT Lactate Dehydrogenase Urine Color Urine Turbidity Urine pH Ur Specific [place] Urine Protein Urine Glucose (UA) Urine Ketones Urine Blood Urine Nitrite Urine Bilirubin Urine Urobilinogen Ur Leukocyte Esterase Urine WBC (Auto) Urine RBC (Auto) U Epithel Cells (Auto) Urine Bacteria (Auto) Urine Mucus
[2017-08-08] MEDS: NORMODYNE PO SCH ×2 (09:39→21:51)
[2017-08-08] MEDS: PROCARDIA XL PO SCH (09:40)
--- NOTE | 2017-08-08 10:53 | Ultrasound Report ---
BIOPHYSICAL PROFILE: History hypertension 2 - breathing movements 2 - movements 2 - posture and tone 2 - Qualitative amniotic fluid volume - TOTAL SCORE OF POSSIBLE 8 Heart Rate (bpm) 134
[2017-08-08] MEDS ORDERED: LACTATED RINGERS 1,000 ML IV ONE (13:08)
[2017-08-08] MEDS ORDERED: IMITREX PO ONE (18:20)
--- NOTE | 2017-08-09 08:56 | Progress Note ---
Assessment and Plan - Patient Problems (1) 32 weeks gestation of Onset Date: ~08/07/17 Current Visit: Yes Status: Acute Subjective - Subjective Date of service: 08/09/17 Principal diagnosis: HTN Interval history: This patient is a 28 years old , EDC 10/01/17 at 32 weeks and 2 day gestation who was admitted on 08/06/17 for elevated BP. She has a history of chronic hypertension and has been on labetalol 300 mg BID and Procardia 30 mg QD as an outpatient. She also follows with [facility] weekly. This is her 5th admission for elevated BP. During her last admission on July 24, she was diagnosed with superimposed preeclampsia on chronic hypertension. On admission, blood pressure was 145/91. At that time, she was given magnesium sulfate for 24 hours. Her blood pressure became stable after she has been resting. The next morning she developed some contractions and was given terbutaline subcutaneously. She did have biophysical profile which was 8 out of 8. Her BP got much better 120's/70's over the subsequent few days. But, on 07/30, her syctolic BP has been in the 140's and diastolic in the 80-90's. On 07/30, toxemia labs were normal and BPP has been 8/8. Today, pt denies any contraction, fluid leakage or bleeding. She reports good movement. Her headache has been managed with norco every 4-6 hrs. She describes it as a throbbing and sharp pain. She denies any dizziness but she has had occasional blurry vision in the right eye the day of her admission. She also has had vomiting when the headache gets severe. Medical consult was done and imitrex for given for migraines. That completely relieved the WALL. In the afternoon of 08/01, patient's BP became elevated to 160/103, repeat was 152 104. Hydralazine was given. BP became 185/97. She was started on Mg sulfate again for superimposed pre-eclampsia. Toxemia labs were sent, a 24-hr urine was protein was 246. She reported throbbing headaches again which is worse on the right side of her head and was unable to tolerate the light. Imitrex was given. She was discharged home on 08/05 with appointment to F/U with MICHEL[facility] in 2 days. She came to the office and her BP was elevated to 158/120 twice. She was sent in for admission. Her BP has been stable for the past 3 days in the 120's 70's. FHT has been CAT 1 tracing. BPP was 06/11. She was given imitrex for WALL. Today, she denies any complaint. She had the imitrex last night. She denies any contractions, bleeding, or fluid leakage per vagina. She reports good movement. Physical exam: Gnl: NAD Vital signs: BP 122/82,HR 75, RR 18. T98.1F FHT: 129 bpm, reactive. No decels. Doland: no contractions. General: No acute distress. Abdomen soft, nontender, gravid , no palpable contractions. Neuro: Alert, awake, oriented 3. Breast exam: deferred Rectal: deferred. Pelvic: deferred. Extremities: no edema, no calf tenderness, no Homans sign. Labs: H&H 11.3/33.8 . Uric acid 4, LFTs: WNL(08/07). BPP: 8/8 (08/01) 24-hr urine: 192 (08/08) Assessment: 1. 28-year-old female at 32 weeks and 2 day gestation with chronic hypertension. 2. Migraine headaches. 3. Previous 2 C/sections. 4. Anemia. Plan: 1. Will discharge her home today. She was advised to continue her labetolol and procardia. She has an appt with [facility] on 08/12. 2.Toxemia precautions were given. 3. She has apt with [facility] on 08/13. Objective - Vital Signs Vital Signs: Vital Signs - 12hr 08/08/17 08/08/17 08/08/17 21:41 21:46 21:51 Temperature 98.1 F Pulse Rate 78 75 67 Respiratory 18 Rate Blood Pressure 126/91 126/91 Blood Pressure 126/91 [Left] O2 Sat by Pulse Oximetry 08/08/17 08/08/17 08/08/17 21:54 21:59 22:02 Temperature Pulse Rate 74 85 Respiratory Rate Blood Pressure Blood Pressure [Left] O2 Sat by Pulse 98 98 77 L Oximetry 08/08/17 08/08/17 08/08/17 22:04 22:09 22:14 Temperature Pulse Rate 74 73 74 Respiratory Rate Blood Pressure Blood Pressure [Left] O2 Sat by Pulse 99 98 98 Oximetry 08/08/17 08/08/17 08/08/17 22:19 22:24 22:29 Temperature Pulse Rate 75 69 66 Respiratory Rate Blood Pressure Blood Pressure [Left] O2 Sat by Pulse 98 99 98 Oximetry 08/08/17 08/08/17 08/08/17 22:34 22:39 22:44 Temperature Pulse Rate 64 72 71 Respiratory Rate Blood Pressure Blood Pressure [Left] O2 Sat by Pulse 99 99 99 Oximetry 08/08/17 08/08/17 08/08/17 22:49 22:54 22:59 Temperature Pulse Rate 70 69 78 Respiratory Rate Blood Pressure 129/91 Blood Pressure [Left] O2 Sat by Pulse 99 100 99 Oximetry 08/08/17 08/08/17 08/08/17 23:04 23:09 23:14 Temperature Pulse Rate 73 80 73 Respiratory Rate Blood Pressure Blood Pressure [Left] O2 Sat by Pulse 99 99 99 Oximetry 08/08/17 08/08/17 08/08/17 23:19 23:24 23:29 Temperature Pulse Rate 74 71 73 Respiratory Rate Blood Pressure Blood Pressure [Left] O2 Sat by Pulse 99 99 100 Oximetry 08/08/17 08/08/17 08/08/17 23:34 23:39 23:44 Temperature Pulse Rate 72 73 71 Respiratory Rate Blood Pressure Blood Pressure [Left] O2 Sat by Pulse 99 98 99 Oximetry 08/08/17 08/08/17 08/08/17 23:49 23:54 23:59 Temperature Pulse Rate 69 72 74 Respiratory Rate Blood Pressure 129/88 Blood Pressure [Left] O2 Sat by Pulse 99 99 98 Oximetry 08/09/17 08/09/17 08/09/17 00:04 00:09 00:14 Temperature Pulse Rate 81 71 75 Respiratory Rate Blood Pressure Blood Pressure [Left] O2 Sat by Pulse 99 99 98 Oximetry 08/09/17 08/09/17 08/09/17 00:19 00:24 00:29 Temperature Pulse Rate 74 71 71 Respiratory Rate Blood Pressure Blood Pressure [Left] O2 Sat by Pulse 98 99 98 Oximetry 08/09/17 08/09/17 08/09/17 00:34 00:39 00:44 Temperature Pulse Rate 72 71 72 Respiratory Rate Blood Pressure Blood Pressure [Left] O2 Sat by Pulse 99 99 98 Oximetry 08/09/17 08/09/17 08/09/17 00:49 00:54 00:59 Temperature Pulse Rate 87 73 75 Respiratory Rate Blood Pressure 138/91 Blood Pressure [Left] O2 Sat by Pulse 98 100 100 Oximetry 08/09/17 08/09/17 08/09/17 01:04 01:05 01:09 Temperature Pulse Rate 74 76 Respiratory Rate Blood Pressure Blood Pressure [Left] O2 Sat by Pulse 99 93 99 Oximetry 08/09/17 08/09/17 08/09/17 01:14 01:19 01:24 Temperature Pulse Rate 80 69 70 Respiratory Rate Blood Pressure Blood Pressure [Left] O2 Sat by Pulse 97 98 99 Oximetry 08/09/17 08/09/17 08/09/17 01:29 01:59 02:59 Temperature Pulse Rate 73 78 71 Respiratory Rate Blood Pressure 140/93 115/64 Blood Pressure [Left] O2 Sat by Pulse 99 Oximetry 08/09/17 08/09/17 08/09/17 04:59 05:59 06:59 Temperature Pulse Rate 95 H 77 70 Respiratory Rate Blood Pressure 136/84 137/87 124/71 Blood Pressure [Left] O2 Sat by Pulse Oximetry 08/09/17 08/09/17 08/09/17 07:59 08:47 08:48 Temperature 96.7 F L Pulse Rate 82 78 82 Respiratory 20 Rate Blood Pressure 122/82 129/82 Blood Pressure 129/82 [Left] O2 Sat by Pulse 99 Oximetry 08/09/17 08/09/17 08:49 08:54 Temperature Pulse Rate 77 82 Respiratory Rate Blood Pressure Blood Pressure [Left] O2 Sat by Pulse 99 99 Oximetry - Labs Labs: Abnormal Labs 08/07/17 08/07/17 08/07/17 13:25 13:25 19:03 RBC 3.62 L RDW 12.7 L 12.9 L Creatinine 0.5 L Urine Creatinine Urine Total Protein 08/08/17 Unknown RBC RDW Creatinine Urine Creatinine 120.6 H Urine Total Protein 16 H Laboratory Results - last 24 hr 08/07/17 08/08/17 19:03 Unknown Urine Total Volume 1200 Urine Creatinine 120.6 H Ur Creatinine 24 Hour 1.4 Ur Total Protein 24 Hr 192.00 Urine Total Protein 16 H RPR Nonreactive
--- NOTE | 2017-08-09 09:17 | Discharge Summary ---
Providers - Providers Date of Admission: 08/07/17 13:02 Date of discharge: 08/09/17 Attending physician: MCKENZIE BENAVIDES MD Primary care physician: MCKENZIE BENAVIDES MD Hospitalization Disposition: DC-30 STILL A PATIENT - Discharge Diagnoses (1) 32 weeks gestation of Status: Acute Plan - Provider Discharge Summary Activity: routine Diet: other (low sodium) Instructions: routine Additional instructions: [] Smoking cessation referral if applicable(refer to patient education folder for contact #) [] Refer to [facility]'s [facility] Booklet Call your doctor immediately for: * Fever > 100.5 * Heavy vaginal bleeding ( >1 pad per hour) * Severe persistent headache * Shortness of breath * Reddened, hot, painful area to leg or breast * Drainage or odor from incision. * Keep incision clean and dry at all times and follow doctor's instructions regarding bathing/showering - Follow up plan Follow up: MCKENZIE BENAVIDES MD [Primary Care Provider] - 7 Days Forms: [facility] Discharge Summary
[2017-08-09] MEDS: NORMODYNE PO SCH (10:19)
[2017-08-09] MEDS: PROCARDIA XL PO SCH (10:25)
[2017-08-09 11:00] VITALS: BP 132/80
== END 2017-08-09 11:15 | disposition home or self-care (01) | DRG 781 ==
LOC: LD 13:02
PROVIDERS: ADMIT Obstetrics & Gynecology; ATTEND Obstetrics & Gynecology
DX: O11.3 Pre-existing hypertension with pre-eclampsia, third trimester (principal); D64.9 Anemia, unspecified; O34.211 Maternal care for low transverse scar from previous cesarean delivery; G43.909 Migraine, unspecified, not intractable, without status migrainosus; O99.013 Anemia complicating pregnancy, third trimester; O99.353 Diseases of the nervous system complicating pregnancy, third trimester; Z3A.32 32 weeks gestation of pregnancy
CPT/HCPCS: 36415; 76819; 81001; 82565; 82570; 83615; 84156; 84450; 84460; 84550; 85027; 86592; J7120

== ENCOUNTER 2017-11-07 11:53 | Emergency (ER) | payer SELFPAY ==
[2017-11-07 15:02] VITALS: BP 169/117
[2017-11-07 15:25] LABS: Basophils # (Auto) 0.1 K/mm3 (0.0-0.1); Eosinophils % (Auto) 0.7 % (0.0-4.3); Hematocrit 39.8 % (30.3-42.9); Hemoglobin 13.3 gm/dl (10.1-14.3); Lymphocytes % (Auto) 38.1 % (13.4-35.0); Mean Corpuscular HGB Conc 34 % (30-34); Mean Corpuscular Hemoglobin 31 pg (28-32); Mean Corpuscular Volume 92 fl (79-97); Monocytes # (Auto) 0.6 K/mm3 (0.0-0.8); Monocytes % (Auto) 11.3 % (0.0-7.3); Platelet Count 230 K/mm3 (140-440); Red Blood Count 4.32 M/mm3 (3.65-5.03); Red Cell Distribution Width 14.5 % (13.2-15.2)
[2017-11-07 15:41] LABS: Alanine Aminotransferase 43 units/L (7-56); Albumin 4.6 g/dL (3.9-5); BUN/Creatinine Ratio 19; Blood Urea Nitrogen 13 mg/dL (7-17); Calcium 9.3 mg/dL (8.4-10.2); Hemolysis Index 6
[2017-11-07 16:01] LABS: Bilirubin,Urine NEG (Negative); Blood,Urine NEG (Negative); Color,Urine Amber (Yellow); Mucus,Urine 2+ /HPF; Nitrite,Urine NEG (Negative); Protein,Urine <15 mg/dL mg/dL (Negative); Urobilinogen,Urine < 2.0 mg/dL (<2.0)
== END 2017-11-07 23:30 | disposition left against medical advice (07) ==
LOC: ED 11:53
DX: R10.9 Unspecified abdominal pain (principal); Z53.21 Procedure and treatment not carried out due to patient leaving prior to being seen by health care provider
CPT/HCPCS: 36415; 80053; 81001; 85025

== ENCOUNTER 2017-11-30 13:49 | Emergency (ER) | payer SELFPAY ==
[2017-11-30] MEDS ORDERED: TORADOL IM ONE (18:14)
[2017-11-30] MEDS ORDERED: ZOFRAN IM ONE (18:15)
--- NOTE | 2017-11-30 18:59 | XRay Report ---
FINAL REPORT EXAM: XR CHEST ROUTINE 2V HISTORY: cough and fever TECHNIQUE: 2 views of the chest. PRIORS: None. FINDINGS: The cardiomediastinal silhouette appears normal. The lungs are clear. The bones and soft tissues are unremarkable. IMPRESSION: No evidence of acute cardiopulmonary disease
[2017-11-30 20:52] VITALS: BP 133/88
--- NOTE | 2017-11-30 21:38 | Emergency Department Report ---
ED Fever HPI - General Chief Complaint: Fever Stated Complaint: FLU LIKE SYMPTOMS Time Seen by Provider: 11/30/17 21:00 Source: patient Exam Limitations: no limitations - History of Present Illness Initial Comments: Fever for 3 days, associated with cough, sore throat, and body aches. Gradually worsening. Her son was recently diagnosed with pneumonia. ED Review of Systems ROS: Stated complaint: FLU LIKE SYMPTOMS Other details as noted in HPI Constitutional: chills, fever Eyes: denies: eye pain, eye discharge, vision change ENT: throat pain. denies: ear pain Respiratory: cough. denies: shortness of breath, wheezing Cardiovascular: denies: chest pain, palpitations Endocrine: no symptoms reported Gastrointestinal: denies: abdominal pain, nausea, diarrhea Genitourinary: denies: urgency, dysuria, discharge Musculoskeletal: denies: back pain, joint swelling, arthralgia Skin: denies: rash, lesions Neurological: denies: headache, weakness, paresthesias Psychiatric: denies: anxiety, depression Hematological/Lymphatic: denies: easy bleeding, easy bruising ED Past Medical Hx - Past Medical History Hx Hypertension: Yes (chtn) Hx Congestive Heart Failure: No Hx Diabetes: No Hx Deep Vein Thrombosis: No Hx GERD: Yes Hx Liver Disease: No Hx Renal Disease: No Hx Sickle Cell Disease: No Hx Seizures: No Hx Psychiatric Treatment: Yes (DEPRESSION) Hx Asthma: No Hx COPD: No Hx HIV: No - Surgical History Additional Surgical History: x3 (2017) - Social History Smoking Status: Never Smoker Substance Use Type: None - Medications Home Medications: Home Medications Medication Instructions Recorded Confirmed Last Taken Type NIFEdipine XL [Procardia Xl] 30 mg PO QDAY #30 tablet 07/10/17 08/15/17 1 Day Ago Rx ~08/14/17 1 Labetalol [Normodyne TAB] 300 mg PO BID #60 tablet 08/04/17 08/15/17 1 Day Ago Rx ~08/14/17 Ferrous Sulfate [Feosol 325 MG tab] 325 mg PO BID #60 tablet 08/15/17 Unknown Rx HYDROcodone/APAP 5-325 [[place] 1 each PO Q6HR PRN #30 tablet 08/15/17 Unknown Rx 5/325] Ibuprofen [Motrin] 800 mg PO Q8HR PRN #30 tablet 08/15/17 Unknown Rx Vit Calc,Iron,Folic 1 each PO DAILY #30 tablet 08/15/17 Unknown Rx [ Vitamins] Cephalexin [Keflex] 500 mg PO Q6HR 10 Days capsule 11/30/17 Unknown Rx Ibuprofen [Motrin] 800 mg PO Q8HR PRN #28 tablet 11/30/17 Unknown Rx ED Physical Exam - General Limitations: No Limitations General appearance: alert, in no apparent distress - Head Head exam: Present: atraumatic, normocephalic - Eye Eye exam: Present: normal appearance - ENT ENT exam: Present: mucous membranes moist - Expanded ENT Exam Expanded Mouth exam: Present: normal external inspection Teeth exam: Present: normal inspection Throat exam: Positive: tonsillar erythema, tonsillomegaly, tonsillar exudate - Neck Neck exam: Present: normal inspection - Respiratory Respiratory exam: Present: normal lung sounds bilaterally. Absent: respiratory distress - Cardiovascular Cardiovascular Exam: Present: regular rate, normal rhythm. Absent: systolic murmur, diastolic murmur, rubs, gallop - GI/Abdominal GI/Abdominal exam: Present: soft, normal bowel sounds - Extremities Exam Extremities exam: Present: normal inspection - Back Exam Back exam: Present: normal inspection - Neurological Exam Neurological exam: Present: alert, oriented X3 - Psychiatric Psychiatric exam: Present: normal affect, normal mood - Skin Skin exam: Present: warm, dry, intact, normal color. Absent: rash ED Course Vital Signs 11/30/17 11/30/17 18:07 20:51 Temperature 102.7 F H 99.8 F H Pulse Rate 109 H 82 Respiratory 20 18 Rate Blood Pressure 158/100 Blood Pressure 133/88 [Left] O2 Sat by Pulse 100 99 Oximetry Critical care attestation.: If time is entered above; I have spent that time in minutes in the direct care of this critically ill patient, excluding procedure time. ED Disposition Clinical Impression: Acute infective tonsillitis Qualifiers: Pharyngitis/tonsillitis etiology: unspecified etiology Qualified Code(s): J03.90 - Acute tonsillitis, unspecified Disposition: - TO HOME OR SELFCARE Is pt being admited?: No Does the pt Need Aspirin: No Condition: Stable Instructions: Tonsillitis (ED) Prescriptions: Cephalexin [Keflex] 500 mg PO Q6HR 10 Days capsule Ibuprofen [Motrin] 800 mg PO Q8HR PRN #28 tablet PRN Reason: Pain Referrals: PRIMARY CARE, [Primary Care Provider] - 3-5 Days Time of Disposition: 21:40
== END 2017-11-30 21:46 | disposition home or self-care (01) ==
LOC: ED 13:49
DX: J03.90 Acute tonsillitis, unspecified (principal); I10 Essential (primary) hypertension; K21.9 Gastro-esophageal reflux disease without esophagitis
CPT/HCPCS: 71046; 87116; 87400; 87430; 96372; 99283; J1885; J2405

== ENCOUNTER 2018-04-13 18:48 | Emergency (ER) | payer MEDICAID ==
[2018-04-13 19:30] LABS: Basophils # (Auto) 0.1 K/mm3 (0.0-0.1); Basophils % (Auto) 1.1 % (0.0-1.8); Eosinophils % (Auto) 0.6 % (0.0-4.3); Hematocrit 37.1 % (30.3-42.9); Lymphocytes # (Auto) 2.9 K/mm3 (1.2-5.4); Lymphocytes % (Auto) 37.7 % (13.4-35.0); Mean Corpuscular HGB Conc 32 % (30-34); Mean Corpuscular Hemoglobin 31 pg (28-32); Mean Corpuscular Volume 94 fl (79-97); Monocytes # (Auto) 0.9 K/mm3 (0.0-0.8); Monocytes % (Auto) 12.3 % (0.0-7.3); Platelet Count 231 K/mm3 (140-440); Red Blood Count 3.93 M/mm3 (3.65-5.03); Red Cell Distribution Width 14.6 % (13.2-15.2)
[2018-04-13 20:00] LABS: Alanine Aminotransferase 10 units/L (7-56); Albumin 4.3 g/dL (3.9-5); BUN/Creatinine Ratio 13; Blood Urea Nitrogen 9 mg/dL (7-17); Calcium 8.8 mg/dL (8.4-10.2); Hemolysis Index 7
[2018-04-13] MEDS ORDERED: ZOFRAN IV ONE (21:12)
[2018-04-13] MEDS ORDERED: TORADOL IV ONE (21:12)
[2018-04-13] MEDS ORDERED: APRESOLINE IV ONE (21:12)
[2018-04-13 21:31] LABS: Bilirubin,Urine NEG (Negative); Blood,Urine NEG (Negative); Color,Urine Yellow (Yellow); Mucus,Urine 3+ /HPF
--- NOTE | 2018-04-13 23:37 | Emergency Department Report ---
HPI - General Chief Complaint: Abdominal Pain Time Seen by Provider: 04/13/18 21:09 - HPI HPI: The patient is a 27-year-old female who presents for evaluation of abdominal pain. The patient reports 1 month of upper abdominal pain, cramping in quality , mild in severity, exacerbated with vomiting. She also reports multiple episodes of loose watery stools. The patient denies fever, chills, night sweats , chest pain, dyspnea, hematemesis, blood in the stool, dark tarry stool, dysuria, hematuria, flank pain, genital discharge, inability to pass flatus. ED Past Medical Hx - Past Medical History Hx Hypertension: Yes Hx Congestive Heart Failure: No Hx Diabetes: No Hx Deep Vein Thrombosis: No Hx GERD: Yes Hx Liver Disease: No Hx Renal Disease: No Hx Sickle Cell Disease: No Hx Seizures: No Hx Psychiatric Treatment: Yes (DEPRESSION) Hx Asthma: No Hx COPD: No Hx HIV: No - Surgical History Additional Surgical History: x3 (2017) - Social History Smoking Status: Current Every Day Smoker Substance Use Type: None - Medications Home Medications: Home Medications Medication Instructions Recorded Confirmed Last Taken Type NIFEdipine XL [Procardia Xl] 30 mg PO QDAY #30 tablet 07/10/17 08/15/17 1 Day Ago Rx ~08/14/17 1 Labetalol [Normodyne TAB] 300 mg PO BID #60 tablet 08/04/17 08/15/17 1 Day Ago Rx ~08/14/17 Ferrous Sulfate [Feosol 325 MG tab] 325 mg PO BID #60 tablet 08/15/17 Unknown Rx HYDROcodone/APAP 5-325 [[place] 1 each PO Q6HR PRN #30 tablet 08/15/17 Unknown Rx 5/325] Ibuprofen [Motrin] 800 mg PO Q8HR PRN #30 tablet 08/15/17 Unknown Rx Vit Calc,Iron,Folic 1 each PO DAILY #30 tablet 08/15/17 Unknown Rx [ Vitamins] Cephalexin [Keflex] 500 mg PO Q6HR 10 Days capsule 11/30/17 Unknown Rx Ibuprofen [Motrin] 800 mg PO Q8HR PRN #28 tablet 11/30/17 Unknown Rx Ondansetron [Zofran TAB] 4 mg PO Q8HR PRN #15 tablet 04/13/18 Unknown Rx traMADol [Ultram 50 MG tab] 50 mg PO Q6HR PRN #15 tablet 04/13/18 Unknown Rx ED Review of Systems ROS: Stated complaint: NV Other details as noted in HPI Constitutional: denies: fever ENT: denies: throat or neck pain Respiratory: denies: cough, shortness of breath Cardiovascular: denies: chest pain Endocrine: denies unexplained weight loss or gain Gastrointestinal: reports abdominal pain Genitourinary: denies: dysuria Musculoskeletal: denies: leg swelling Skin: denies: rash Neurological: denies: headache Hematological/Lymphatic: denies: easy bleeding or easy bruising Psych: reports AH denies sadness or hopelessness Physical Exam - Physical Exam Vital Signs: Vital Signs 04/13/18 04/13/18 04/13/18 18:58 21:00 21:10 Temperature 98.5 F Pulse Rate 104 H 78 Respiratory 20 16 Rate Blood Pressure 154/97 181/124 Blood Pressure 172/121 [Left] O2 Sat by Pulse 100 100 100 Oximetry 04/13/18 04/13/18 04/13/18 21:15 21:19 21:42 Temperature Pulse Rate Respiratory 16 22 Rate Blood Pressure 172/121 Blood Pressure [Left] O2 Sat by Pulse 100 100 Oximetry 04/13/18 04/13/18 04/13/18 21:45 21:46 22:00 Temperature Pulse Rate 75 70 76 Respiratory 18 22 Rate Blood Pressure 198/163 198/163 157/98 Blood Pressure [Left] O2 Sat by Pulse 100 100 Oximetry 04/13/18 22:12 Temperature Pulse Rate Respiratory 16 Rate Blood Pressure Blood Pressure [Left] O2 Sat by Pulse Oximetry Physical Exam: General: well-nourished, well-developed, no acute distress Head: Normocephalic, atraumatic Eyes: normal sclera ENT: Mucous membranes are pink and moist Neck: trachea midline, neck supple, No neck stiffness, no cervical adenopathy Respiratory: Breath sounds equal bilaterally, no wheezing, rales, or rhonchi Cardio: S1 and S2 present, no murmurs, rubs, gallops, capillary refill is brisk Abdomen: Normoactive bowel sounds, soft abdomen, epigastric tenderness to palpation present, no rebound, guarding, rigidity Chest WALL/Back: No tenderness to palpation of the chest wall, no CVA tenderness with percussion Musc: No pitting edema Skin: No rash Neuro: no facial drooping, normal speech Psych: Normal affect ED Course Vital Signs 04/13/18 04/13/18 04/13/18 18:58 21:00 21:10 Temperature 98.5 F Pulse Rate 104 H 78 Respiratory 20 16 Rate Blood Pressure 154/97 181/124 Blood Pressure 172/121 [Left] O2 Sat by Pulse 100 100 100 Oximetry 04/13/18 04/13/18 04/13/18 21:15 21:19 21:42 Temperature Pulse Rate Respiratory 16 22 Rate Blood Pressure 172/121 Blood Pressure [Left] O2 Sat by Pulse 100 100 Oximetry 04/13/18 04/13/18 04/13/18 21:45 21:46 22:00 Temperature Pulse Rate 75 70 76 Respiratory 18 22 Rate Blood Pressure 198/163 198/163 157/98 Blood Pressure [Left] O2 Sat by Pulse 100 100 Oximetry 04/13/18 22:12 Temperature Pulse Rate Respiratory 16 Rate Blood Pressure Blood Pressure [Left] O2 Sat by Pulse Oximetry ED Medical Decision Making - Lab Data Result diagrams: 04/13/18 19:05 04/13/18 19:05 - Medical Decision Making The patient was seen and examined by myself. The patient is placed on a night monitor and continuous pulse ox. On initial evaluation, the patient was found to be in no distress. Evaluation orders are placed. IV access is established and the patient is given Zofran for nausea, and IV analgesic for pain. Lab results were non-concerning including WBC, hemoglobin, hematocrit, electrolytes, renal function, LFTs, lipase, and neg preg test. The patient was reevaluated and reported that their symptoms were markedly improved. The patient is stable for discharge with outpatient follow-up. The patient is given follow-up and return instructions. The patient expressed understanding and agreed with the plan. The patient is discharged in stable condition. Critical care attestation.: If time is entered above; I have spent that time in minutes in the direct care of this critically ill patient, excluding procedure time. ED Disposition Clinical Impression: Abdominal pain, acute, periumbilical, Nausea and vomiting in adult patient Disposition: DC-01 TO HOME OR SELFCARE Is pt being admited?: No Does the pt Need Aspirin: No Condition: Stable Instructions: Abdominal Pain (ED) Referrals: PRIMARY CARE, [Primary Care Provider] - 3-5 Days [facility] [Provider Group] - 3-5 Days MARGARET GUZMAN MD [Staff Physician] - 3-5 Days Time of Disposition: 23:38
[2018-04-14 00:15] VITALS: BP 168/111
== END 2018-04-14 00:15 | disposition home or self-care (01) ==
LOC: ED 18:48
DX: R10.33 Periumbilical pain (principal); R11.2 Nausea with vomiting, unspecified; I10 Essential (primary) hypertension; K21.9 Gastro-esophageal reflux disease without esophagitis; F32.9 Major depressive disorder, single episode, unspecified; F17.200 Nicotine dependence, unspecified, uncomplicated
CPT/HCPCS: 36415; 80053; 81001; 84703; 85025; 96374; 96375; 99283; J0360; J1885; J2405

== ENCOUNTER 2018-08-22 07:01 | Emergency (ER) | payer MEDICAID ==
[2018-08-22] MEDS ORDERED: NACL 0.9% 1000 ML 1,000 ML IV ONE (07:16)
[2018-08-22 07:29] LABS: Basophils # (Auto) 0.1 K/mm3 (0.0-0.1); Basophils % (Auto) 1.2 % (0.0-1.8); Eosinophils # (Auto) 0.1 K/mm3 (0.0-0.4); Eosinophils % (Auto) 1.4 % (0.0-4.3); Hematocrit 38.4 % (30.3-42.9); Hemoglobin 13.1 gm/dl (10.1-14.3); Lymphocytes # (Auto) 2.4 K/mm3 (1.2-5.4); Lymphocytes % (Auto) 34.8 % (13.4-35.0); Mean Corpuscular HGB Conc 34 % (30-34); Mean Corpuscular Hemoglobin 32 pg (28-32); Mean Corpuscular Volume 94 fl (79-97); Monocytes # (Auto) 0.9 K/mm3 (0.0-0.8); Monocytes % (Auto) 13.3 % (0.0-7.3); Platelet Count 214 K/mm3 (140-440); Red Blood Count 4.08 M/mm3 (3.65-5.03); Red Cell Distribution Width 14.4 % (13.2-15.2)
[2018-08-22 07:51] LABS: Alanine Aminotransferase 10 units/L (7-56); Albumin 4.5 g/dL (3.9-5); BUN/Creatinine Ratio 21; Blood Urea Nitrogen 15 mg/dL (7-17); Calcium 8.7 mg/dL (8.4-10.2); Hemolysis Index 5; Lipase 73 units/L (13-60)
--- NOTE | 2018-08-22 08:24 | Emergency Department Report ---
ED Abdominal Pain HPI - General Chief Complaint: Abdominal Pain Stated Complaint: ABD PAIN Time Seen by Provider: 08/22/18 08:06 Source: patient, RN notes reviewed, old records reviewed Mode of arrival: Ambulatory Limitations: No Limitations - History of Present Illness Initial Comments: This 27-year-old female who is not known to this provider previously, reports a history of hypertension, typically takes labetalol. She reports that she is not today, and reports that she has not delivered or given within the past 2 months. She presents to the ER today with complaint of nontraumatic intermittent right lower quadrant pain, present over the past 2 weeks, sharp and achy in nature, does not radiate anywhere, and increases with palpation and decreased with rest. She reports being seen at [facility] a few weeks ago, believes that she had "negative culture results." She is not sure if she had any imaging performed. She endorses nausea, vomiting, but no diarrhea, also endorses new onset dyspareunia, And chronic vaginal discharge. She describes pressure with urination. She denies headache and neck pain, throat pain, extremity weakness, numbness. MD Complaint: abdominal pain -: Gradual Location: RLQ Radiation: none Quality: cramping, stabbing, aching Consistency: intermittent Improves With: other Worsens With: other Associated Symptoms: nausea, vomiting, anorexia. denies: diarrhea, fever, chills, constipation, dysuria, hematemesis, hematochezia, melena, hematuria, syncope - Related Data Previous Rx's Medication Instructions Recorded Last Taken Type NIFEdipine XL [Procardia Xl] 30 mg PO QDAY #30 tablet 07/10/17 1 Day Ago Rx ~08/14/17 1 Labetalol [Normodyne TAB] 300 mg PO BID #60 tablet 08/04/17 1 Day Ago Rx ~08/14/17 Ferrous Sulfate [Feosol 325 MG tab] 325 mg PO BID #60 tablet 08/15/17 Unknown Rx HYDROcodone/APAP 5-325 [[place] 1 each PO Q6HR PRN #30 tablet 08/15/17 Unknown Rx 5/325] Ibuprofen [Motrin] 800 mg PO Q8HR PRN #30 tablet 08/15/17 Unknown Rx Vit Calc,Iron,Folic 1 each PO DAILY #30 tablet 08/15/17 Unknown Rx [ Vitamins] Cephalexin [Keflex] 500 mg PO Q6HR 10 Days capsule 11/30/17 Unknown Rx Ibuprofen [Motrin] 800 mg PO Q8HR PRN #28 tablet 11/30/17 Unknown Rx Ondansetron [Zofran TAB] 4 mg PO Q8HR PRN #15 tablet 04/13/18 Unknown Rx traMADol [Ultram 50 MG tab] 50 mg PO Q6HR PRN #15 tablet 04/13/18 Unknown Rx Acetaminophen [Tylenol Arthritis] 650 mg PO Q6HR PRN #30 tablet.er 08/22/18 Unknown Rx Ibuprofen [Motrin] 600 mg PO Q8H PRN #30 tablet 08/22/18 Unknown Rx Ondansetron [Zofran Odt] 4 mg PO Q8HR PRN #20 tab.rapdis 08/22/18 Unknown Rx Promethazine [Phenergan SUPPOS] 50 mg AL Q6H PRN #20 supp.rect 08/22/18 Unknown Rx Allergies Allergy/AdvReac Type Severity Reaction Status Date / Time No Known Allergies Allergy Verified 08/22/18 07:14 ED Review of Systems ROS: Stated complaint: ABD PAIN Other details as noted in HPI Comment: All other systems reviewed and negative Constitutional: malaise Eyes: denies: eye discharge Respiratory: denies: cough Cardiovascular: denies: chest pain Gastrointestinal: abdominal pain Genitourinary: frequency, discharge Psychiatric: anxiety ED Past Medical Hx - Past Medical History Hx Hypertension: Yes Hx Congestive Heart Failure: No Hx Diabetes: No Hx Deep Vein Thrombosis: No Hx GERD: Yes Hx Liver Disease: No Hx Renal Disease: No Hx Sickle Cell Disease: No Hx Seizures: No Hx Psychiatric Treatment: Yes (DEPRESSION) Hx Asthma: No Hx COPD: No Hx HIV: No - Surgical History Additional Surgical History: x3 (2017) - Social History Smoking Status: Never Smoker Substance Use Type: None - Medications Home Medications: Home Medications Medication Instructions Recorded Confirmed Last Taken Type NIFEdipine XL [Procardia Xl] 30 mg PO QDAY #30 tablet 07/10/17 08/15/17 1 Day Ago Rx ~08/14/17 1 Labetalol [Normodyne TAB] 300 mg PO BID #60 tablet 08/04/17 08/15/17 1 Day Ago Rx ~08/14/17 Ferrous Sulfate [Feosol 325 MG tab] 325 mg PO BID #60 tablet 08/15/17 Unknown Rx HYDROcodone/APAP 5-325 [[place] 1 each PO Q6HR PRN #30 tablet 08/15/17 Unknown Rx 5/325] Ibuprofen [Motrin] 800 mg PO Q8HR PRN #30 tablet 08/15/17 Unknown Rx Vit Calc,Iron,Folic 1 each PO DAILY #30 tablet 08/15/17 Unknown Rx [ Vitamins] Cephalexin [Keflex] 500 mg PO Q6HR 10 Days capsule 11/30/17 Unknown Rx Ibuprofen [Motrin] 800 mg PO Q8HR PRN #28 tablet 11/30/17 Unknown Rx Ondansetron [Zofran TAB] 4 mg PO Q8HR PRN #15 tablet 04/13/18 Unknown Rx traMADol [Ultram 50 MG tab] 50 mg PO Q6HR PRN #15 tablet 04/13/18 Unknown Rx Acetaminophen [Tylenol Arthritis] 650 mg PO Q6HR PRN #30 tablet.er 08/22/18 Unknown Rx Ibuprofen [Motrin] 600 mg PO Q8H PRN #30 tablet 08/22/18 Unknown Rx Ondansetron [Zofran Odt] 4 mg PO Q8HR PRN #20 tab.rapdis 08/22/18 Unknown Rx Promethazine [Phenergan SUPPOS] 50 mg AL Q6H PRN #20 supp.rect 08/22/18 Unknown Rx ED Physical Exam - General Limitations: No Limitations General appearance: alert, in distress - Head Head exam: Present: atraumatic, normocephalic - Eye Eye exam: Present: normal appearance, EOMI. Absent: nystagmus - ENT ENT exam: Present: normal exam, normal orophraynx, mucous membranes moist, normal external ear exam - Neck Neck exam: Present: normal inspection, full ROM. Absent: tenderness, meningismus - Respiratory Respiratory exam: Present: normal lung sounds bilaterally. Absent: respiratory distress - Cardiovascular Cardiovascular Exam: Present: regular rate, normal rhythm, normal heart sounds. Absent: bradycardia, tachycardia, irregular rhythm, systolic murmur, diastolic murmur, rubs, gallop - GI/Abdominal GI/Abdominal exam: Present: soft, tenderness (mild right-sided tenderness, there is no rebound, guarding or peritoneal signs.), normal bowel sounds. Absent: distended, guarding, rebound, rigid - External exam: Present: normal external exam Speculum exam: Present: normal speculum exam, vaginal discharge Bi-manual exam: Present: normal bi-manual exam, other (chaperoned by nurse Judy Brunson). Absent: cervical motion tendernes, adnexal tenderness, adnexal mass - Extremities Exam Extremities exam: Present: normal inspection, full ROM, normal capillary refill , other (2+ pulses noted in the bilateral upper, lower extremities. Compartments soft. No long bony tenderness. The pelvis is stable.). Absent: tenderness, pedal edema, joint swelling, calf tenderness - Back Exam Back exam: Present: normal inspection, full ROM. Absent: tenderness, CVA tenderness (R), paraspinal tenderness, vertebral tenderness - Neurological Exam Neurological exam: Present: alert, oriented X3, CN II-XII intact, normal gait, other (Extraocular movements intact. Tongue midline. No facial droop. Facial sensation intact to light touch in the V1, V2, V3 distribution bilaterally. 5 and 5 strength in 4 extremities.. Sensation is intact to light touch in 4 extremities.). Absent: motor sensory deficit - Psychiatric Psychiatric exam: Present: anxious - Skin Skin exam: Present: warm, dry, intact, normal color. Absent: rash ED Course Vital Signs 08/22/18 08/22/18 08/22/18 07:14 08:31 08:36 Temperature 98.9 F Pulse Rate 84 70 Respiratory 18 10 L 16 Rate Blood Pressure 207/145 184/136 O2 Sat by Pulse 100 100 100 Oximetry 08/22/18 08/22/18 08/22/18 10:21 10:26 10:27 Temperature Pulse Rate 63 Respiratory 10 L 16 16 Rate Blood Pressure 173/113 O2 Sat by Pulse 100 Oximetry 08/22/18 10:30 Temperature Pulse Rate 69 Respiratory 19 Rate Blood Pressure 168/114 O2 Sat by Pulse 98 Oximetry - Reevaluation(s) Reevaluation #1: 08/22/18 09:18 Differential diagnosis, including without limited to: Ovarian cyst, ovarian torsion, endometriosis, urinary tract infection, vaginitis, appendicitis, cyclic vomiting syndrome, inflammatory bowel disease, irritable bowel disease, pelvic inflammatory disease, Hypertension Assessment and plan: 27-year-old female with episodic recurrent lower abdominal pain, getting worse. She is afebrile and hypertensive, currently her blood pressures in the 180s. Her pain will be treated. CT scan of the abdomen and pelvis and pelvic ultrasound pending. Gynecologic examination pending. We have requested old medical records from prior evaluation. We will reassess. Reevaluation #2: 08/22/18 10:56 Blood pressure is improved. CT scan of the abdomen and pelvis is negative. Pelvic ultrasound was negative. Gynecologic examination is pending. Reevaluation #3: 08/22/18 11:17 Gynecologic examination is benign. Culture sent. This can be followed up as an outpatient. Tolerating orals. Blood pressure in the 170s. Patient will be discharged with instructions to follow up with outpatient gynecology. ED Medical Decision Making - Lab Data Result diagrams: 08/22/18 07:18 08/22/18 07:18 Vital Signs 08/22/18 08/22/18 08/22/18 07:14 08:31 08:36 Temperature 98.9 F Pulse Rate 84 70 Respiratory 18 10 L 16 Rate Blood Pressure 207/145 184/136 O2 Sat by Pulse 100 100 100 Oximetry Lab Results 08/22/18 08/22/18 08/22/18 Range/Units 07:18 07:18 07:18 WBC 6.8 (4.5-11.0) K/mm3 RBC 4.08 (3.65-5.03) M/mm3 Hgb 13.1 (10.1-14.3) gm/dl Hct 38.4 (30.3-42.9) % MCV 94 (79-97) fl MCH 32 (28-32) pg MCHC 34 (30-34) % RDW 14.4 (13.2-15.2) % Plt Count 214 (140-440) K/mm3 Lymph % (Auto) 34.8 (13.4-35.0) % [place] % (Auto) 13.3 H (0.0-7.3) % Eos % (Auto) 1.4 (0.0-4.3) % Baso % (Auto) 1.2 (0.0-1.8) % Lymph # 2.4 (1.2-5.4) K/mm3 [place] # 0.9 H (0.0-0.8) K/mm3 Eos # 0.1 (0.0-0.4) K/mm3 Baso # 0.1 (0.0-0.1) K/mm3 Seg Neutrophils % 49.3 (40.0-70.0) % Seg Neutrophils # 3.3 (1.8-7.7) K/mm3 Sodium 139 (137-145) mmol/L Potassium 3.7 (3.6-5.0) mmol/L Chloride 102.9 (98-107) mmol/L Carbon Dioxide 24 (22-30) mmol/L Anion Gap 16 mmol/L BUN 15 (7-17) mg/dL Creatinine 0.7 (0.7-1.2) mg/dL Estimated GFR > 60 ml/min BUN/Creatinine Ratio 21 % Glucose 94 (65-100) mg/dL Calcium 8.7 (8.4-10.2) mg/dL Total Bilirubin 0.20 (0.1-1.2) mg/dL AST 13 (5-40) units/L ALT 10 (7-56) units/L Alkaline Phosphatase 89 (35-129) units/L Total Protein 7.7 (6.3-8.2) g/dL Albumin 4.5 (3.9-5) g/dL Albumin/Globulin Ratio 1.4 % Lipase 73 H (13-60) units/L HCG, Qual Negative (Negative) Urine Color (Yellow) Urine Turbidity (Clear) Urine pH (5.0-7.0) Ur Specific [place] (1.003-1.030) Urine Protein (Negative) mg/dL Urine Glucose (UA) (Negative) mg/dL Urine Ketones (Negative) mg/dL Urine Blood (Negative) Urine Nitrite (Negative) Urine Bilirubin (Negative) Urine Urobilinogen (<2.0) mg/dL Ur Leukocyte Esterase (Negative) Urine WBC (Auto) (0.0-6.0) /HPF Urine RBC (Auto) (0.0-6.0) /HPF U Epithel Cells (Auto) (0-13.0) /HPF Urine Bacteria (Auto) (Negative) /HPF Urine Mucus /HPF 08/22/18 Range/Units 08:20 WBC (4.5-11.0) K/mm3 RBC (3.65-5.03) M/mm3 Hgb (10.1-14.3) gm/dl Hct (30.3-42.9) % MCV (79-97) fl MCH (28-32) pg MCHC (30-34) % RDW (13.2-15.2) % Plt Count (140-440) K/mm3 Lymph % (Auto) (13.4-35.0) % [place] % (Auto) (0.0-7.3) % Eos % (Auto) (0.0-4.3) % Baso % (Auto) (0.0-1.8) % Lymph # (1.2-5.4) K/mm3 [place] # (0.0-0.8) K/mm3 Eos # (0.0-0.4) K/mm3 Baso # (0.0-0.1) K/mm3 Seg Neutrophils % (40.0-70.0) % Seg Neutrophils # (1.8-7.7) K/mm3 Sodium (137-145) mmol/L Potassium (3.6-5.0) mmol/L Chloride (98-107) mmol/L Carbon Dioxide (22-30) mmol/L Anion Gap mmol/L BUN (7-17) mg/dL Creatinine (0.7-1.2) mg/dL Estimated GFR ml/min BUN/Creatinine Ratio % Glucose (65-100) mg/dL Calcium (8.4-10.2) mg/dL Total Bilirubin (0.1-1.2) mg/dL AST (5-40) units/L ALT (7-56) units/L Alkaline Phosphatase (35-129) units/L Total Protein (6.3-8.2) g/dL Albumin (3.9-5) g/dL Albumin/Globulin Ratio % Lipase (13-60) units/L HCG, Qual (Negative) Urine Color Yellow (Yellow) Urine Turbidity Cloudy (Clear) Urine pH 6.0 (5.0-7.0) Ur Specific [place] 1.028 (1.003-1.030) Urine Protein 30 mg/dl (Negative) mg/dL Urine Glucose (UA) Neg (Negative) mg/dL Urine Ketones Tr (Negative) mg/dL Urine Blood Neg (Negative) Urine Nitrite Neg (Negative) Urine Bilirubin Neg (Negative) Urine Urobilinogen 4.0 (<2.0) mg/dL Ur Leukocyte Esterase Neg (Negative) Urine WBC (Auto) 1.0 (0.0-6.0) /HPF Urine RBC (Auto) 9.0 (0.0-6.0) /HPF U Epithel Cells (Auto) 39.0 H (0-13.0) /HPF Urine Bacteria (Auto) 1+ (Negative) /HPF Urine Mucus 3+ /HPF Critical care attestation.: If time is entered above; I have spent that time in minutes in the direct care of this critically ill patient, excluding procedure time. ED Disposition Clinical Impression: Abdominal pain, Hypertension Disposition: TO HOME OR SELFCARE Is pt being admited?: No Does the pt Need Aspirin: No Condition: Stable Instructions: Abdominal Pain (ED), Hypertension (ED) Additional Instructions: Cultures were sent today, and results will be available in the next 3-5 days. Take the pain medication, nausea medications as needed/directed. Follow up with a tap puller within the next 7 days. Please note that blood pressure was elevated in the emergency room. This should be followed up by a primary care doctor within the next month. Long-term complications of hypertension and elevated blood pressure include stroke, heart attack, disability, paralysis, loss of quality of life. Return to the ER right away with new pain, worsened pain, migration of pain, projectile vomiting, change in mental status, confusion , inability to tolerate liquid feeds. Referrals: [facility] [Provider Group] - 3-5 Days [facility] [Provider Group] - 3-5 Days [facility] [Provider Group] - 3-5 Days
[2018-08-22 08:46] LABS: Bacteria,Urine 1+ /HPF (Negative); Bilirubin,Urine NEG (Negative); Blood,Urine NEG (Negative); Color,Urine Yellow (Yellow); Mucus,Urine 3+ /HPF
[2018-08-22] MEDS ORDERED: TORADOL IV ONE (08:47)
[2018-08-22] MEDS ORDERED: DILAUDID IV ONE (08:47)
[2018-08-22] MEDS ORDERED: ZOFRAN IV ONE (08:47)
--- NOTE | 2018-08-22 10:10 | Cat Scan Report ---
CT ABDOMEN PELVIS WITH CONTRAST: HISTORY: abdominal pain. COMPARISON: none. TECHNIQUE: Helical CT in 1.25mm intervals following IV contrast. Sagittal and coronal reconstructions. FINDINGS: Lung bases: Normal. Liver: Normal. Biliary system: Normal. Pancreas: Normal. Spleen: Normal. Kidneys/ureters/bladder: Normal. Adrenal glands: Normal. Aorta: Normal. Intestines: Normal. Appendix: Not confidently identified. Pelvic viscera: Small bilateral ovarian cysts are identified measuring up to 1.5 cm. Bilateral tubal ligation clips are in place. The uterus is grossly normal. Ascites: None. Adenopathy: None. Musculoskeletal: Normal. IMPRESSION: Small bilateral ovarian cysts. No acute inflammatory process.
--- NOTE | 2018-08-22 10:39 | Ultrasound Report ---
FINAL REPORT EXAM: US PELVIS DUPLEX DOPPLER COMP HISTORY: pelvic pain TECHNIQUE: Pelvic ultrasound. Transabdominal and transvaginal imaging performed. Duplex Doppler of ovaries included. PRIORS: None. FINDINGS: There is no uterine mass is seen. The uterus measures 7.8 x 3.9 x 4.9 cm. Endometrial thickness is 7 mm. The right ovary measures 3.6 x 2.0 x 2.3 cm. The left ovary measures 2.8 x 2.5 x 2.2 cm. There are multiple follicles bilaterally. No abnormal adnexal masses are seen. There is blood flow within both ovariesdemonstrated by color flow and spectral waveform images. There is trace free fluid in the cul-de-sac. IMPRESSION: There is no significant abnormality identified.
--- NOTE | 2018-08-22 10:40 | Ultrasound Report ---
FINAL REPORT EXAM: US TRANSVAGINAL HISTORY: pelvic pain TECHNIQUE: Pelvic ultrasound. Transabdominal and transvaginal imaging performed. Duplex Doppler of ovaries included. PRIORS: None. FINDINGS: There is no uterine mass is seen. The uterus measures 7.8 x 3.9 x 4.9 cm. Endometrial thickness is 7 mm. The right ovary measures 3.6 x 2.0 x 2.3 cm. The left ovary measures 2.8 x 2.5 x 2.2 cm. There are multiple follicles bilaterally. No abnormal adnexal masses are seen. There is blood flow within both ovariesdemonstrated by color flow and spectral waveform images. There is trace free fluid in the cul-de-sac. IMPRESSION: There is no significant abnormality identified.
[2018-08-22 12:55] VITALS: BP 152/102
== END 2018-08-22 13:55 | disposition home or self-care (01) ==
LOC: ED 07:01
DX: R10.31 Right lower quadrant pain (principal); I10 Essential (primary) hypertension; R11.2 Nausea with vomiting, unspecified; K21.9 Gastro-esophageal reflux disease without esophagitis; F32.9 Major depressive disorder, single episode, unspecified; N39.0 Urinary tract infection, site not specified
CPT/HCPCS: 36415; 51701; 74177; 76830; 80053; 81001; 83690; 84703; 85025; 87591; 93975; 96361; 96374; 96375; 99284; J1170; J1885; J2405; J7030; Q9967

== ENCOUNTER 2019-06-05 21:21 | Emergency (ER) | payer MEDICAID ==
[2019-06-05] MEDS ORDERED: ZOFRAN ODT PO ONE (21:37)
--- NOTE | 2019-06-05 21:40 | Event Note ---
ED Screening Note Date of service: 06/05/19 Time: 21:35 ED Screening Note: This is a 28 y.o. F. that presents to the ER with right flank pain x 5 days. CC: right flank pain, urinary frequency, nausea, and diarrhea LMP 05/18/2019 Current smoker PMH of HTN This initial assessment/diagnostic orders/clinical plan/treatment(s) is/are subject to change based on patients health status, clinical progression and re- assessment by fellow clinical providers in the ED. Further treatment and workup at subsequent clinical providers discretion. Patient/guardian urged not to elope from the ED as their condition may be serious if not clinically assessed and managed. Initial orders include: Labs and CT of abdomen and pelvis Given zofran odt
[2019-06-05 21:54] LABS: Basophils # (Auto) 0.1 K/mm3 (0.0-0.1); Basophils % (Auto) 1.5 % (0.0-1.8); Eosinophils # (Auto) 0.1 K/mm3 (0.0-0.4); Hematocrit 35.5 % (30.3-42.9); Hemoglobin 12.3 gm/dl (10.1-14.3); Lymphocytes # (Auto) 2.6 K/mm3 (1.2-5.4); Lymphocytes % (Auto) 33.9 % (13.4-35.0); Mean Corpuscular HGB Conc 35 % (30-34); Mean Corpuscular Volume 96 fl (79-97); Monocytes # (Auto) 0.7 K/mm3 (0.0-0.8); Monocytes % (Auto) 8.7 % (0.0-7.3); Platelet Count 208 K/mm3 (140-440)
[2019-06-05] MEDS ORDERED: NACL 0.9% 1000 ML 1,000 ML IV ONE (22:15)
[2019-06-05 22:17] LABS: Alanine Aminotransferase 13 units/L (7-56); Albumin 4.5 g/dL (3.9-5); BUN/Creatinine Ratio 19; Blood Urea Nitrogen 13 mg/dL (7-17); Calcium 9.4 mg/dL (8.4-10.2); Hemolysis Index 3
[2019-06-05 23:41] LABS: Bacteria,Urine 1+ /HPF (Negative); Bilirubin,Urine NEG (Negative); Blood,Urine SM (Negative); Color,Urine Yellow (Yellow); Mucus,Urine FEW /HPF; Protein,Urine <15 mg/dL mg/dL (Negative); Urobilinogen,Urine < 2.0 mg/dL (<2.0)
[2019-06-05] MEDS ORDERED: TORADOL IV ONE (23:50)
--- NOTE | 2019-06-06 00:22 | Cat Scan Report ---
CT of the abdomen and pelvis without contrast INDICATION: Pelvic pain COMPARISON: 08/22/2018 FINDINGS: The lung bases are clear. The liver, spleen, pancreas, adrenal glands and kidneys all appea r normal. No definite gallbladder or biliary tree abnormality. No fluid or adenopathy in the upper ab domen. CT of the pelvis shows an umbilical hernia containing fat. No pelvic adenopathy. No uterine masses. T here has been tubal ligation. There is minimal amount of free pelvic fluid. Appendix is not seen. No bowel obstruction identified. There may be a few cysts in the left ovary. No significant skeletal les ion. IMPRESSION: Left ovarian cysts with free fluid. Otherwise negative study. Automated exposure control was utilized to diminish radiation dose. Signer Name: Geovani Hoffmann MD Signed: 06/06/2019 12:17 AM Workstation Name: [id number]
[2019-06-06 01:37] VITALS: BP 165/118
[2019-06-06] MEDS ORDERED: XYLOCAINE 1% MPF 5 mL INFILTRATI ONE ×2 (02:14→02:20)
[2019-06-06] MEDS ORDERED: FLAGYL PO ONE (02:15)
[2019-06-06] MEDS ORDERED: ZITHROMAX PO ONE (02:15)
[2019-06-06] MEDS ORDERED: ZOFRAN IV ONE (02:16)
[2019-06-06] MEDS ORDERED: ROCEPHIN IM ONE (02:20)
--- NOTE | 2019-06-06 02:21 | Emergency Department Report ---
ED Abdominal Pain HPI - General Chief Complaint: Abdominal Pain Stated Complaint: ABD PAIN, VOMITTING, LOWER BACK PAIN, SPOTTING, Time Seen by Provider: 06/05/19 21:35 Source: patient Mode of arrival: Ambulatory Limitations: No Limitations - History of Present Illness Initial Comments: Patient is a A0 28-year-old [place] female who presents to the ED, acute onset persistent severe suprapubic pain with nausea for the last 1 week, worse in the last 2 days. Patient also complains of suprapubic pressure. Patient denies dizziness, fever, chills, dysuria, low back pain, vaginal bleeding, or discharge, diarrhea, cough, chest pain, shortness of breath, or vomiting. MD Complaint: abdominal pain -: Sudden, week(s) (1) Location: suprapubic Radiation: suprapubic Migration to: suprapubic Severity: moderate Severity scale (0 -10): 6 Quality: aching, sharp Consistency: constant Improves With: nothing Worsens With: nothing Associated Symptoms: denies other symptoms, nausea. denies: vomiting, diarrhea, fever, chills, constipation, dysuria, hematemesis, hematochezia, melena, hematuria, syncope, other - Related Data Previous Rx's Medication Instructions Recorded Last Taken Type NIFEdipine XL [Procardia Xl] 30 mg PO QDAY #30 tablet 07/10/17 1 Day Ago Rx ~08/14/17 1 Labetalol [Labetalol 200mg TAB] 300 mg PO BID #60 tablet 08/04/17 1 Day Ago Rx ~08/14/17 Ferrous Sulfate [Feosol 325 MG tab] 325 mg PO BID #60 tablet 08/15/17 Unknown Rx HYDROcodone/APAP 5-325 [[place] 1 each PO Q6HR PRN #30 tablet 08/15/17 Unknown Rx 5/325] Ibuprofen [Motrin] 800 mg PO Q8HR PRN #30 tablet 08/15/17 Unknown Rx Vit Calc,Iron,Folic 1 each PO DAILY #30 tablet 08/15/17 Unknown Rx [ Vitamins] Cephalexin [Keflex] 500 mg PO Q6HR 10 Days capsule 11/30/17 Unknown Rx Ibuprofen [Motrin] 800 mg PO Q8HR PRN #28 tablet 11/30/17 Unknown Rx Ondansetron [Zofran TAB] 4 mg PO Q8HR PRN #15 tablet 04/13/18 Unknown Rx traMADol [Ultram 50 MG tab] 50 mg PO Q6HR PRN #15 tablet 04/13/18 Unknown Rx Acetaminophen [Tylenol Arthritis] 650 mg PO Q6HR PRN #30 tablet.er 08/22/18 Unknown Rx Ibuprofen [Motrin] 600 mg PO Q8H PRN #30 tablet 08/22/18 Unknown Rx Ondansetron [Zofran Odt] 4 mg PO Q8HR PRN #20 tab.rapdis 08/22/18 Unknown Rx Promethazine [Phenergan SUPPOS] 50 mg [place] Q6H PRN #20 supp.rect 08/22/18 Unknown Rx Acetaminophen/Codeine [Tylenol 1 tab PO Q6H PRN #12 tab 06/06/19 Unknown Rx /Codeine # 3 tab] DOXYCYCLINE Hyclate [Vibramycin 100 mg PO Q12HR #20 capsule 06/06/19 Unknown Rx CAP] Ketorolac [Toradol] 10 mg PO Q8H PRN #20 tablet 06/06/19 Unknown Rx Ondansetron [Zofran Odt] 4 mg PO Q6HR #15 tab.rapdis 06/06/19 Unknown Rx metroNIDAZOLE [Flagyl] 500 mg PO Q12HR #14 tab 06/06/19 Unknown Rx Allergies Allergy/AdvReac Type Severity Reaction Status Date / Time No Known Allergies Allergy Verified 08/22/18 07:14 ED Review of Systems ROS: Stated complaint: ABD PAIN, VOMITTING, LOWER BACK PAIN, SPOTTING, Other details as noted in HPI Constitutional: denies: chills, fever Eyes: denies: eye pain, eye discharge, vision change ENT: denies: ear pain, throat pain Respiratory: denies: cough, shortness of breath, wheezing Cardiovascular: denies: chest pain, palpitations Endocrine: no symptoms reported Gastrointestinal: abdominal pain, nausea. denies: diarrhea Genitourinary: denies: urgency, dysuria, discharge Musculoskeletal: denies: back pain, joint swelling, arthralgia Skin: denies: rash, lesions Neurological: denies: headache, weakness, paresthesias Psychiatric: denies: anxiety, depression Hematological/Lymphatic: denies: easy bleeding, easy bruising ED Past Medical Hx - Past Medical History Previous Medical History?: Yes Hx Hypertension: Yes Hx Congestive Heart Failure: No Hx Diabetes: No Hx Deep Vein Thrombosis: No Hx GERD: Yes Hx Liver Disease: No Hx Renal Disease: No Hx Sickle Cell Disease: No Hx Seizures: No Hx Psychiatric Treatment: Yes (DEPRESSION) Hx Asthma: No Hx COPD: No Hx HIV: No - Surgical History Past Surgical History?: Yes Additional Surgical History: x3 (2017) - Social History Smoking Status: Current Every Day Smoker Substance Use Type: None - Medications Home Medications: Home Medications Medication Instructions Recorded Confirmed Last Taken Type NIFEdipine XL [Procardia Xl] 30 mg PO QDAY #30 tablet 07/10/17 08/15/17 1 Day Ago Rx ~08/14/17 1 Labetalol [Labetalol 200mg TAB] 300 mg PO BID #60 tablet 08/04/17 08/15/17 1 Day Ago Rx ~08/14/17 Ferrous Sulfate [Feosol 325 MG tab] 325 mg PO BID #60 tablet 08/15/17 Unknown Rx HYDROcodone/APAP 5-325 [[place] 1 each PO Q6HR PRN #30 tablet 08/15/17 Unknown Rx 5/325] Ibuprofen [Motrin] 800 mg PO Q8HR PRN #30 tablet 08/15/17 Unknown Rx Vit Calc,Iron,Folic 1 each PO DAILY #30 tablet 08/15/17 Unknown Rx [ Vitamins] Cephalexin [Keflex] 500 mg PO Q6HR 10 Days capsule 11/30/17 Unknown Rx Ibuprofen [Motrin] 800 mg PO Q8HR PRN #28 tablet 11/30/17 Unknown Rx Ondansetron [Zofran TAB] 4 mg PO Q8HR PRN #15 tablet 04/13/18 Unknown Rx traMADol [Ultram 50 MG tab] 50 mg PO Q6HR PRN #15 tablet 04/13/18 Unknown Rx Acetaminophen [Tylenol Arthritis] 650 mg PO Q6HR PRN #30 tablet.er 08/22/18 Unknown Rx Ibuprofen [Motrin] 600 mg PO Q8H PRN #30 tablet 08/22/18 Unknown Rx Ondansetron [Zofran Odt] 4 mg PO Q8HR PRN #20 tab.rapdis 08/22/18 Unknown Rx Promethazine [Phenergan SUPPOS] 50 mg [place] Q6H PRN #20 supp.rect 08/22/18 Unknown Rx Acetaminophen/Codeine [Tylenol 1 tab PO Q6H PRN #12 tab 06/06/19 Unknown Rx /Codeine # 3 tab] DOXYCYCLINE Hyclate [Vibramycin 100 mg PO Q12HR #20 capsule 06/06/19 Unknown Rx CAP] Ketorolac [Toradol] 10 mg PO Q8H PRN #20 tablet 06/06/19 Unknown Rx Ondansetron [Zofran Odt] 4 mg PO Q6HR #15 tab.rapdis 06/06/19 Unknown Rx metroNIDAZOLE [Flagyl] 500 mg PO Q12HR #14 tab 06/06/19 Unknown Rx ED Physical Exam - General Limitations: No Limitations General appearance: alert, in no apparent distress - Head Head exam: Present: atraumatic, normocephalic, normal inspection - Eye Eye exam: Present: normal appearance, PERRL, EOMI. Absent: scleral icterus, conjunctival injection, periorbital swelling, periorbital tenderness Pupils: Present: normal accommodation - ENT ENT exam: Present: normal exam, normal orophraynx, mucous membranes moist, TM's normal bilaterally, normal external ear exam - Neck Neck exam: Present: normal inspection, full ROM - Respiratory Respiratory exam: Present: normal lung sounds bilaterally. Absent: respiratory distress, wheezes, rales, rhonchi, chest wall tenderness, accessory muscle use, decreased breath sounds - Cardiovascular Cardiovascular Exam: Present: regular rate, normal rhythm, normal heart sounds. Absent: systolic murmur, diastolic murmur, rubs, gallop - GI/Abdominal GI/Abdominal exam: Present: soft, tenderness (suprapubic), normal bowel sounds. Absent: guarding, rebound, hyperactive bowel sounds, hypoactive bowel sounds, organomegaly, mass - Rectal Rectal exam: Present: deferred - External exam: Present: normal external exam Speculum exam: Present: vaginal discharge, cervical discharge Bi-manual exam: Present: cervical motion tendernes, uterine tenderness. Absent: adnexal tenderness - Extremities Exam Extremities exam: Present: normal inspection, full ROM, normal capillary refill - Back Exam Back exam: Present: normal inspection, full ROM. Absent: tenderness, CVA tenderness (R), CVA tenderness (L), muscle spasm - Neurological Exam Neurological exam: Present: alert, oriented X3, CN II-XII intact, normal gait, reflexes normal - Psychiatric Psychiatric exam: Present: normal affect, normal mood - Skin Skin exam: Present: warm, dry, intact, normal color. Absent: rash ED Course Vital Signs 06/05/19 06/05/19 06/06/19 21:25 23:59 01:36 Temperature 98.6 F 98.7 F Pulse Rate 77 63 Respiratory 16 16 16 Rate Blood Pressure 199/142 Blood Pressure 165/118 [Left] O2 Sat by Pulse 98 100 Oximetry - Reevaluation(s) Reevaluation #1: 06/06/19 02:27 Patient is alert and oriented 3 and is in distress but hypertensive and in pain. Labs were drawn abdomen and pelvis CT scan with contrast was ordered. Left wrist is also unremarkable non-actionable. Abdomen CT scan with contrast shows left ovarian cysts with free fluid. The gallbladder, liver, kidneys, pancreas are all unremarkable. The appendix was not visualized. Patient was t reated for pain in the ED and pelvic exam is positive for cervical motion tenderness with uterine tenderness but no adnexal tenderness. Patient was treated empirically for acute PID and the patient was discharged home on medications. Patient was advised to follow-up with [facility] physician or primary care physician for further evaluation in 7-10 days. Patient was advised to return to the ED immediately if symptoms get worse. 06/06/19 02:28 ED Medical Decision Making - Lab Data Result diagrams: 06/05/19 21:45 06/05/19 21:45 - Radiology Data Radiology results: report reviewed, image reviewed Findings [facility] [address] [place] [address] Cat Scan Report Signed Patient: LOPEZ CHA MR#: [id number] : 1990 Acct:[id number] Age/Sex: 28 / F ADM Date: 06/05/19 Loc: ED Attending Dr: Ordering Physician: RAJESH IVORY Date of Service: 06/05/19 Procedure(s): CT abdomen pelvis wo con Accession Number(s): [id number] cc: RAJESH IVORY CT of the abdomen and pelvis without contrast INDICATION: Pelvic pain COMPARISON: 08/22/2018 FINDINGS: The lung bases are clear. The liver, spleen, pancreas, adrenal glands and kidneys all appear normal. No definite gallbladder or biliary tree abnormality. No fluid or adenopathy in the upper abdomen. CT of the pelvis shows an umbilical hernia containing fat. No pelvic adenopathy. No uterine masses. There has been tubal ligation. There is minimal amount of free pelvic fluid. Appendix is not seen. No bowel obstruction identified. There may be a few cysts in the left ovary. No significant skeletal lesion. IMPRESSION: Left ovarian cysts with free fluid. Otherwise negative study. Automated exposure control was utilized to diminish radiation dose. Signer Name: Geovani Hoffmann MD Signed: 06/06/2019 12:17 AM Workstation Name: [id number] Transcribed By: ALONSO Dictated By: Geovani Hoffmann MD Electronically Authenticated By: Geovani Hoffmann MD Signed Date/Time: 06/06/19 0017 - Medical Decision Making Patient is alert and oriented 3 and is in distress but hypertensive and in pain. Labs were drawn abdomen and pelvis CT scan with contrast was ordered. Left wrist is also unremarkable non-actionable. Abdomen CT scan with contrast shows left ovarian cysts with free fluid. The gallbladder, liver, kidneys, pancreas are all unremarkable. The appendix was not visualized. Patient was treated for pain in the ED and pelvic exam is positive for cervical motion tenderness with uterine tenderness but no adnexal tenderness. Patient was treated empirically for acute PID and the patient was discharged home on medications. Patient was advised to follow-up with [facility] physician or primary care physician for further evaluation in 7-10 days. Patient was advised to return to the ED immediately if symptoms get worse. - Differential Diagnosis Acute PID; Acute UTI; Acute colitis, acute Appendicitis Critical care attestation.: If time is entered above; I have spent that time in minutes in the direct care of this critically ill patient, excluding procedure time. ED Disposition Clinical Impression: Acute pelvic inflammatory disease (PID) Abdominal pain Qualifiers: Abdominal location: lower abdomen, unspecified Qualified Code(s): R10.30 - Lower abdominal pain, unspecified Disposition: - TO HOME OR SELFCARE Is pt being admited?: No Does the pt Need Aspirin: No Condition: Stable Instructions: Abdominal Pain (ED) Additional Instructions: Take medications with food, drink plenty of fluids and follow up with your primary care physician or [facility] physician in 7-10 days for reevaluation. Return to the ED immediately if symptoms get worse. Prescriptions: metroNIDAZOLE [Flagyl] 500 mg PO Q12HR #14 tab Ketorolac [Toradol] 10 mg PO Q8H PRN #20 tablet PRN Reason: Pain Acetaminophen/Codeine [Tylenol /Codeine # 3 tab] 1 tab PO Q6H PRN #12 tab PRN Reason: Pain , Severe (7-10) DOXYCYCLINE Hyclate [Vibramycin CAP] 100 mg PO Q12HR #20 capsule Ondansetron [Zofran Odt] 4 mg PO Q6HR #15 tab.[email or web address] Referrals: [facility] [Outside] - 3-5 Days Time of Disposition: 02:18 Print Language: SETSWANA
[2019-06-06] MEDS ORDERED: ROCEPHIN 500 MG in NACL 0.9% 50 ML IV NR (03:00)
== END 2019-06-06 03:13 | disposition home or self-care (01) ==
LOC: ED 21:21
DX: N73.0 Acute parametritis and pelvic cellulitis (principal); I10 Essential (primary) hypertension; K21.9 Gastro-esophageal reflux disease without esophagitis; F32.9 Major depressive disorder, single episode, unspecified; F17.200 Nicotine dependence, unspecified, uncomplicated; Z79.899 Other long term (current) drug therapy
CPT/HCPCS: 36415; 74176; 80053; 81001; 83690; 84703; 85025; 87210; 87591; 96361; 96372; 96374; 96375; 99284; J0696; J1885; J2405; J7030; Q0162

== ENCOUNTER 2020-08-02 11:57 | Emergency (ER) | payer MEDICAID ==
[2020-08-02 12:04] VITALS: BP 171/126
--- NOTE | 2020-08-02 12:42 | Emergency Department Report ---
ED Abdominal Pain HPI - General Chief Complaint: Abdominal Pain Stated Complaint: N/V/PELVIC PAIN Time Seen by Provider: 08/02/20 12:41 Source: patient Mode of arrival: Ambulatory Limitations: No Limitations - History of Present Illness Initial Comments: This is a 29-year-old female nontoxic, well nourished in appearance, no acute signs of distress presents to the ED with c/o of nausea and vomiting and abdominal pain several days. Patient describes vomiting as food content and yellow gastric acid. Patient describes abdominal pain as cramping and aching with level of 8/10 lower abdominal area. Stated had some diarrhea this morning. Patient denies chest pain, short of breath, fever, hemoptysis, blood in stool, chills, headache, stiff neck, numbness or tingling. Patient denies any constipation. Denies any blood in stool. Patient denies any recent travels. Patient denies any allergies or PMH. MD Complaint: abdominal pain -: days(s) Location: LLQ, RLQ Radiation: none Migration to: no migration Severity: mild Severity scale (0 -10): 8 Quality: cramping, aching Improves With: nothing Worsens With: nothing Associated Symptoms: nausea, vomiting, diarrhea. denies: fever, chills, constipation, dysuria, hematemesis, hematochezia, melena, hematuria, anorexia, s yncope - Related Data Previous Rx's Medication Instructions Recorded Last Taken Type NIFEdipine XL [Procardia Xl] 30 mg PO QDAY #30 tablet 07/10/17 1 Day Ago Rx ~08/14/17 1 labetaloL [Labetalol 200mg TAB] 300 mg PO BID #60 tablet 08/04/17 1 Day Ago Rx ~08/14/17 Ferrous Sulfate [Feosol 325 MG tab] 325 mg PO BID #60 tablet 08/15/17 Unknown Rx HYDROcodone/APAP 5-325 [[place] 1 each PO Q6HR PRN #30 tablet 08/15/17 Unknown Rx 5/325] Ibuprofen [Motrin] 800 mg PO Q8HR PRN #30 tablet 08/15/17 Unknown Rx Vit Calc,Iron,Folic 1 each PO DAILY #30 tablet 08/15/17 Unknown Rx [ Vitamins] Cephalexin [Keflex] 500 mg PO Q6HR 10 Days capsule 11/30/17 Unknown Rx Ibuprofen [Motrin] 800 mg PO Q8HR PRN #28 tablet 11/30/17 Unknown Rx Ondansetron [Zofran TAB] 4 mg PO Q8HR PRN #15 tablet 04/13/18 Unknown Rx traMADoL [Ultram 50 MG tab] 50 mg PO Q6HR PRN #15 tablet 04/13/18 Unknown Rx Acetaminophen [Tylenol Arthritis] 650 mg PO Q6HR PRN #30 tablet.er 08/22/18 Unknown Rx Ibuprofen [Motrin] 600 mg PO Q8H PRN #30 tablet 08/22/18 Unknown Rx Ondansetron [Zofran Odt] 4 mg PO Q8HR PRN #20 tab.rapdis 08/22/18 Unknown Rx Promethazine [Phenergan SUPPOS] 50 mg NE Q6H PRN #20 supp.rect 08/22/18 Unknown Rx Acetaminophen/Codeine [Tylenol 1 tab PO Q6H PRN #12 tab 06/06/19 Unknown Rx /Codeine # 3 tab] DOXYCYCLINE Hyclate [Vibramycin 100 mg PO Q12HR #20 capsule 06/06/19 Unknown Rx CAP] Ketorolac [Toradol] 10 mg PO Q8H PRN #20 tablet 06/06/19 Unknown Rx Lisinopril/Hydrochlorothiazide 1 tab PO QDAY #30 tab 06/06/19 Unknown Rx [Zestoretic 20-12.5 mg] Ondansetron [Zofran Odt] 4 mg PO Q6HR #15 tab.rapdis 06/06/19 Unknown Rx metroNIDAZOLE [Flagyl] 500 mg PO Q12HR #14 tab 06/06/19 Unknown Rx Ofloxacin 0.3% [Floxin 0.3% Otic] 10 drops DAILY 7 Days #1 bottle 06/01/20 Unknown Rx Ondansetron [Zofran Odt] 4 mg PO Q8HR PRN #12 tab.rapdis 08/02/20 Unknown Rx Allergies Allergy/AdvReac Type Severity Reaction Status Date / Time No Known Allergies Allergy Verified 08/22/18 07:14 ED Review of Systems ROS: Stated complaint: N/V/PELVIC PAIN Other details as noted in HPI Constitutional: denies: chills, fever Eyes: denies: eye pain, eye discharge, vision change ENT: denies: ear pain, throat pain Respiratory: denies: cough, shortness of breath, wheezing Cardiovascular: denies: chest pain, palpitations Endocrine: no symptoms reported Gastrointestinal: abdominal pain, nausea, vomiting, diarrhea. denies: constipation, hematemesis, melena, hematochezia Genitourinary: denies: urgency, dysuria, discharge Musculoskeletal: denies: back pain, joint swelling, arthralgia Skin: denies: rash, lesions Neurological: denies: headache, weakness, paresthesias Psychiatric: denies: anxiety, depression Hematological/Lymphatic: denies: easy bleeding, easy bruising ED Past Medical Hx - Past Medical History Hx Hypertension: Yes Hx Congestive Heart Failure: No Hx Diabetes: No Hx Deep Vein Thrombosis: No Hx GERD: Yes Hx Liver Disease: No Hx Renal Disease: No Hx Sickle Cell Disease: No Hx Seizures: No Hx Psychiatric Treatment: Yes (DEPRESSION) Hx Asthma: No Hx COPD: No Hx HIV: No - Surgical History Additional Surgical History: x3 (2017) - Social History Smoking Status: Never Smoker Substance Use Type: None - Medications Home Medications: Home Medications Medication Instructions Recorded Confirmed Last Taken Type NIFEdipine XL [Procardia Xl] 30 mg PO QDAY #30 tablet 07/10/17 08/15/17 1 Day Ago Rx ~08/14/17 1 labetaloL [Labetalol 200mg TAB] 300 mg PO BID #60 tablet 08/04/17 08/15/17 1 Day Ago Rx ~08/14/17 Ferrous Sulfate [Feosol 325 MG tab] 325 mg PO BID #60 tablet 08/15/17 Unknown Rx HYDROcodone/APAP 5-325 [[place] 1 each PO Q6HR PRN #30 tablet 08/15/17 Unknown Rx 5/325] Ibuprofen [Motrin] 800 mg PO Q8HR PRN #30 tablet 08/15/17 Unknown Rx Vit Calc,Iron,Folic 1 each PO DAILY #30 tablet 08/15/17 Unknown Rx [ Vitamins] Cephalexin [Keflex] 500 mg PO Q6HR 10 Days capsule 11/30/17 Unknown Rx Ibuprofen [Motrin] 800 mg PO Q8HR PRN #28 tablet 11/30/17 Unknown Rx Ondansetron [Zofran TAB] 4 mg PO Q8HR PRN #15 tablet 04/13/18 Unknown Rx traMADoL [Ultram 50 MG tab] 50 mg PO Q6HR PRN #15 tablet 04/13/18 Unknown Rx Acetaminophen [Tylenol Arthritis] 650 mg PO Q6HR PRN #30 tablet.er 08/22/18 Unknown Rx Ibuprofen [Motrin] 600 mg PO Q8H PRN #30 tablet 08/22/18 Unknown Rx Ondansetron [Zofran Odt] 4 mg PO Q8HR PRN #20 tab.rapdis 08/22/18 Unknown Rx Promethazine [Phenergan SUPPOS] 50 mg NE Q6H PRN #20 supp.rect 08/22/18 Unknown Rx Acetaminophen/Codeine [Tylenol 1 tab PO Q6H PRN #12 tab 06/06/19 Unknown Rx /Codeine # 3 tab] DOXYCYCLINE Hyclate [Vibramycin 100 mg PO Q12HR #20 capsule 06/06/19 Unknown Rx CAP] Ketorolac [Toradol] 10 mg PO Q8H PRN #20 tablet 06/06/19 Unknown Rx Lisinopril/Hydrochlorothiazide 1 tab PO QDAY #30 tab 06/06/19 Unknown Rx [Zestoretic 20-12.5 mg] Ondansetron [Zofran Odt] 4 mg PO Q6HR #15 tab.rapdis 06/06/19 Unknown Rx metroNIDAZOLE [Flagyl] 500 mg PO Q12HR #14 tab 06/06/19 Unknown Rx Ofloxacin 0.3% [Floxin 0.3% Otic] 10 drops DAILY 7 Days #1 bottle 06/01/20 Unknown Rx Ondansetron [Zofran Odt] 4 mg PO Q8HR PRN #12 tab.rapdis 08/02/20 Unknown Rx ED Physical Exam - General Limitations: No Limitations General appearance: alert, in no apparent distress - Head Head exam: Present: atraumatic, normocephalic - Eye Eye exam: Present: normal appearance - Neck Neck exam: Present: normal inspection, full ROM. Absent: tenderness, meningismus, lymphadenopathy - Respiratory Respiratory exam: Present: normal lung sounds bilaterally. Absent: respiratory distress, wheezes, rales, rhonchi, stridor, chest wall tenderness, accessory muscle use, decreased breath sounds, prolonged expiratory - Cardiovascular Cardiovascular Exam: Present: regular rate, normal rhythm, normal heart sounds. Absent: bradycardia, tachycardia, irregular rhythm, systolic murmur, diastolic murmur, rubs, gallop - GI/Abdominal GI/Abdominal exam: Present: soft, tenderness (bilateral lower abdomen), normal bowel sounds. Absent: distended, guarding, rebound, rigid, diminished bowel sounds - Extremities Exam Extremities exam: Present: normal inspection, full ROM - Back Exam Back exam: Present: normal inspection, full ROM. Absent: tenderness, CVA tenderness (R), CVA tenderness (L), muscle spasm, paraspinal tenderness, vertebral tenderness, rash noted - Neurological Exam Neurological exam: Present: alert, oriented X3, normal gait - Psychiatric Psychiatric exam: Present: normal affect, normal mood - Skin Skin exam: Present: warm, dry, intact, normal color. Absent: rash ED Course Vital Signs 08/02/20 12:01 Temperature 98.5 F Pulse Rate 72 Respiratory 18 Rate Blood Pressure 171/126 O2 Sat by Pulse 100 Oximetry - Reevaluation(s) Reevaluation #1: 08/02/20 13:58 Patient is speaking in full sentences with no signs of distress noted. ED Medical Decision Making - Lab Data Result diagrams: 08/02/20 12:59 08/02/20 12:59 Lab Results 08/02/20 08/02/20 08/02/20 Range/Units 12:59 12:59 12:59 WBC 4.6 (4.5-11.0) K/mm3 RBC 4.20 (3.65-5.03) M/mm3 Hgb 13.7 (10.1-14.3) gm/dl Hct 40.6 (30.3-42.9) % MCV 97 (79-97) fl MCH 33 H (28-32) pg MCHC 34 (30-34) % RDW 14.5 (13.2-15.2) % Plt Count 199 (140-440) K/mm3 Lymph % (Auto) 28.5 (13.4-35.0) % [place] % (Auto) 8.5 H (0.0-7.3) % Eos % (Auto) 0.3 (0.0-4.3) % Baso % (Auto) 0.8 (0.0-1.8) % Lymph # (Auto) 1.3 (1.2-5.4) K/mm3 [place] # (Auto) 0.4 (0.0-0.8) K/mm3 Eos # (Auto) 0.0 (0.0-0.4) K/mm3 Baso # (Auto) 0.0 (0.0-0.1) K/mm3 Seg Neutrophils % 61.9 (40.0-70.0) % Seg Neutrophils # 2.9 (1.8-7.7) K/mm3 Sodium 137 (137-145) mmol/L Potassium 4.3 (3.6-5.0) mmol/L Chloride 102.1 (98-107) mmol/L Carbon Dioxide 23 (22-30) mmol/L Anion Gap 16 mmol/L BUN 9 (7-17) mg/dL Creatinine 0.7 (0.6-1.2) mg/dL Estimated GFR > 60 ml/min BUN/Creatinine Ratio 13 % Glucose 76 (65-100) mg/dL Calcium 9.4 (8.4-10.2) mg/dL Total Bilirubin 0.50 (0.1-1.2) mg/dL AST 16 (5-40) units/L ALT 11 (7-56) units/L Alkaline Phosphatase 61 (35-129) units/L Total Protein 7.8 (6.3-8.2) g/dL Albumin 4.5 (3.9-5) g/dL Albumin/Globulin Ratio 1.4 % Lipase 15 (13-60) units/L HCG, Quant < 2 (0-4) mIU/mL Urine Color (Yellow) Urine Turbidity (Clear) Urine pH (5.0-7.0) Ur Specific [place] (1.003-1.030) Urine Protein (Negative) mg/dL Urine Glucose (UA) (Negative) mg/dL Urine Ketones (Negative) mg/dL Urine Blood (Negative) Urine Nitrite (Negative) Urine Bilirubin (Negative) Urine Urobilinogen (<2.0) mg/dL Ur Leukocyte Esterase (Negative) Urine WBC (Auto) (0.0-6.0) /HPF Urine RBC (Auto) (0.0-6.0) /HPF U Epithel Cells (Auto) (0-13.0) /HPF Urine Bacteria (Auto) (Negative) /HPF Urine Mucus /HPF 08/02/20 Range/Units 13:38 WBC (4.5-11.0) K/mm3 RBC (3.65-5.03) M/mm3 Hgb (10.1-14.3) gm/dl Hct (30.3-42.9) % MCV (79-97) fl MCH (28-32) pg MCHC (30-34) % RDW (13.2-15.2) % Plt Count (140-440) K/mm3 Lymph % (Auto) (13.4-35.0) % [place] % (Auto) (0.0-7.3) % Eos % (Auto) (0.0-4.3) % Baso % (Auto) (0.0-1.8) % Lymph # (Auto) (1.2-5.4) K/mm3 [place] # (Auto) (0.0-0.8) K/mm3 Eos # (Auto) (0.0-0.4) K/mm3 Baso # (Auto) (0.0-0.1) K/mm3 Seg Neutrophils % (40.0-70.0) % Seg Neutrophils # (1.8-7.7) K/mm3 Sodium (137-145) mmol/L Potassium (3.6-5.0) mmol/L Chloride (98-107) mmol/L Carbon Dioxide (22-30) mmol/L Anion Gap mmol/L BUN (7-17) mg/dL Creatinine (0.6-1.2) mg/dL Estimated GFR ml/min BUN/Creatinine Ratio % Glucose (65-100) mg/dL Calcium (8.4-10.2) mg/dL Total Bilirubin (0.1-1.2) mg/dL AST (5-40) units/L ALT (7-56) units/L Alkaline Phosphatase (35-129) units/L Total Protein (6.3-8.2) g/dL Albumin (3.9-5) g/dL Albumin/Globulin Ratio % Lipase (13-60) units/L HCG, Quant (0-4) mIU/mL Urine Color Yellow (Yellow) Urine Turbidity Clear (Clear) Urine pH 7.0 (5.0-7.0) Ur Specific [place] 1.010 (1.003-1.030) Urine Protein <15 mg/dl (Negative) mg/dL Urine Glucose (UA) Neg (Negative) mg/dL Urine Ketones 20 (Negative) mg/dL Urine Blood Sm (Negative) Urine Nitrite Neg (Negative) Urine Bilirubin Neg (Negative) Urine Urobilinogen < 2.0 (<2.0) mg/dL Ur Leukocyte Esterase Neg (Negative) Urine WBC (Auto) < 1.0 (0.0-6.0) /HPF Urine RBC (Auto) 7.0 (0.0-6.0) /HPF U Epithel Cells (Auto) 1.0 (0-13.0) /HPF Urine Bacteria (Auto) 1+ (Negative) /HPF Urine Mucus Few /HPF - Radiology Data Referring Physician: JENNIFER HILARIO Patient Name: LOPEZ CHA Date of : 1990 Sex: Female Report Date: 2020-08-02 Report Status: [place] [address] Cat Scan Report Signed Patient: LOPEZ CHA MR#: [id number] : 1990 Acct:[id number] Age/Sex: 29 / F ADM Date: 08/02/20 Loc: ED Attending Dr: Ordering Physician: JENNIFER HILARIO NP Date of Service: 08/02/20 Procedure(s): CT abdomen pelvis w con Accession Number(s): [id number] cc: JENNIFER HILARIO NP CT ABDOMEN AND PELVIS WITH CONTRAST INDICATION / CLINICAL INFORMATION: abd pain. TECHNIQUE: Axial CT images were obtained through the abdomen and pelvis following the administration of intravenous contrast. All CT scans at this location are performed using CT dose reduction for ALARA by means of automated exposure control. COMPARISON: CT abdomen/pelvis dated 06/05/2019. FINDINGS: LOWER CHEST: No significant abnormality. LIVER: No significant abnormality. GALLBLADDER: No significant abnormality. PANCREAS: No significant abnormality. SPLEEN: No significant abnormality. ADRENALS: No significant abnormality. KIDNEYS / URETERS: No significant abnormality. URINARY BLADDER: No significant abnormality. REPRODUCTIVE ORGANS: There is a 1.5 cm involuting right ovarian cyst. STOMACH / SMALL BOWEL: No significant abnormality. COLON: No significant abnormality. APPENDIX: No significant abnormality. PERITONEUM: There is small volume pelvic free fluid. No free air. No fluid collection. LYMPH NODES: No significant adenopathy. AORTA / ARTERIES: No significant abnormality. IVC / VEINS: No significant abnormality. SKELETAL SYSTEM: No significant abnormality. ADDITIONAL FINDINGS: None. IMPRESSION: 1. 1.5 cm involuting right ovarian cyst with small volume pelvic free fluid. 2. No additional significant abnormalities. Signer Name: Jose Ruelas MD Signed: 08/02/2020 5:07 PM Workstation Name: [id number] Transcribed By: SS Dictated By: JOSE RUELAS Electronically Authenticated By: JOSE RUELAS Signed Date/Time: 08/02/201706 DD/ 01 TD/TT: - Medical Decision Making This is a 29-year-old female that presents with abdominal pain. Patient is stable and was examined by me. Negative signs of symptoms of appendicitis. Labs obtained. UA obtained. CT of abdomen obtained and dictated by the radiologist. Patient is notified of the report with no questions noted by the patient. Vital signs are stable prior to discharge. Patient received medical treatment in the ED which patient stated symptoms has resovled and subsided. Was instructed note to operate any machinery due to possible drowsiness and stated someone will drive the patient home. A by mouth challenge has been obtained and patient tolerated well with no nausea vomiting. Patient was notified of strict precatuions of appendictis symptoms and to return to the ED if symptoms occurs as soon as possible. Patient was also instructed to Follow-up with a primary care doctor in 3-5 days or if symptoms worsen and continue return to emergency room as soon as possible. At time of discharge, the patient does not seem toxic or ill in appearance. No acute signs of distress noted. Patient agrees to discharge treatment plan of care. No further questions noted by the patient. Critical care attestation.: If time is entered above; I have spent that time in minutes in the direct care of this critically ill patient, excluding procedure time. ED Disposition Clinical Impression: Ovarian cyst Qualifiers: Laterality: right Qualified Code(s): N83.201 - Unspecified ovarian cyst, right side Abdominal pain Qualifiers: Abdominal location: lower abdomen, unspecified Qualified Code(s): R10.30 - Lower abdominal pain, unspecified Nausea & vomiting Qualifiers: Vomiting type: unspecified Vomiting Intractability: non-intractable Qualified Code(s): R11.2 - Nausea with vomiting, unspecified Disposition: - TO HOME OR SELFCARE Is pt being admited?: No Does the pt Need Aspirin: No Condition: Stable Instructions: Abdominal Pain (ED), Ovarian Cyst (ED) Additional Instructions: Follow-up with a primary care and OBGYN doctor in 3-5 days or if symptoms worsen and continue return to emergency room as soon as possible. Prescriptions: Ondansetron [Zofran Odt] 4 mg PO Q8HR PRN #12 tab.rapdis PRN Reason: Nausea Referrals: PRIMARY CAREMD [Primary Care Provider] - 3-5 Days J LUIS BERNABE MD [Staff Physician] - 3-5 Days [facility] [Provider Group] - 3-5 Days Forms: Work/School Release Form(ED)
[2020-08-02] MEDS ORDERED: SODIUM CHLORIDE 0.9% 1000 ML 1,000 ML IV ONE (12:48)
[2020-08-02] MEDS ORDERED: ONDANSETRON 4 MG/2 ML INJ IV ONE (12:48)
[2020-08-02] MEDS ORDERED: FAMOTIDINE 20 MG/2 ML INJ IV ONE (12:48)
[2020-08-02] MEDS ORDERED: MORPHINE 4 MG/1 ML INJ IV ONE (12:48)
[2020-08-02 13:31] LABS: Basophils % (Auto) 0.8 % (0.0-1.8); Eosinophils % (Auto) 0.3 % (0.0-4.3); Hematocrit 40.6 % (30.3-42.9); Hemoglobin 13.7 gm/dl (10.1-14.3); Lymphocytes # (Auto) 1.3 K/mm3 (1.2-5.4); Lymphocytes % (Auto) 28.5 % (13.4-35.0); Mean Corpuscular HGB Conc 34 % (30-34); Mean Corpuscular Volume 97 fl (79-97); Monocytes # (Auto) 0.4 K/mm3 (0.0-0.8); Monocytes % (Auto) 8.5 % (0.0-7.3); Platelet Count 199 K/mm3 (140-440); Red Cell Distribution Width 14.5 % (13.2-15.2)
[2020-08-02 13:43] LABS: Alanine Aminotransferase 11 units/L (7-56); Albumin 4.5 g/dL (3.9-5); BUN/Creatinine Ratio 13; Blood Urea Nitrogen 9 mg/dL (7-17); Calcium 9.4 mg/dL (8.4-10.2); Hemolysis Index 12
[2020-08-02 14:23] LABS: Bacteria,Urine 1+ /HPF (Negative); Bilirubin,Urine NEG (Negative); Blood,Urine SM (Negative); Color,Urine Yellow (Yellow); Mucus,Urine FEW /HPF; Protein,Urine <15 mg/dL mg/dL (Negative); Urobilinogen,Urine < 2.0 mg/dL (<2.0); WBC,Urine < 1.0 /HPF (0.0-6.0)
--- NOTE | 2020-08-02 17:12 | Cat Scan Report ---
CT ABDOMEN AND PELVIS WITH CONTRAST INDICATION / CLINICAL INFORMATION: abd pain. TECHNIQUE: Axial CT images were obtained through the abdomen and pelvis following the administration of intraven ous contrast. All CT scans at this location are performed using CT dose reduction for ALARA by means of automated exposure control. COMPARISON: CT abdomen/pelvis dated 06/05/2019. FINDINGS: LOWER CHEST: No significant abnormality. LIVER: No significant abnormality. GALLBLADDER: No significant abnormality. PANCREAS: No significant abnormality. SPLEEN: No significant abnormality. ADRENALS: No significant abnormality. KIDNEYS / URETERS: No significant abnormality. URINARY BLADDER: No significant abnormality. REPRODUCTIVE ORGANS: There is a 1.5 cm involuting right ovarian cyst. STOMACH / SMALL BOWEL: No significant abnormality. COLON: No significant abnormality. APPENDIX: No significant abnormality. PERITONEUM: There is small volume pelvic free fluid. No free air. No fluid collection. LYMPH NODES: No significant adenopathy. AORTA / ARTERIES: No significant abnormality. IVC / VEINS: No significant abnormality. SKELETAL SYSTEM: No significant abnormality. ADDITIONAL FINDINGS: None. IMPRESSION: 1. 1.5 cm involuting right ovarian cyst with small volume pelvic free fluid. 2. No additional significant abnormalities. Signer Name: Sergio Ruelas MD Signed: 08/02/2020 5:07 PM Workstation Name: [id number]
== END 2020-08-02 17:26 | disposition home or self-care (01) ==
LOC: ED 11:57
DX: N83.201 Unspecified ovarian cyst, right side (principal); I10 Essential (primary) hypertension; K21.9 Gastro-esophageal reflux disease without esophagitis; F32.89 Other specified depressive episodes; Z98.890 Other specified postprocedural states; Z79.899 Other long term (current) drug therapy
CPT/HCPCS: 36415; 74177; 80053; 81001; 83690; 84702; 85025; 96361; 96374; 96375; 99284; J2270; J2405; J7030; Q9967

== ENCOUNTER 2020-10-17 17:34 | Emergency (ER) | payer MEDICAID | END 2020-10-18 09:49 | disposition left against medical advice (07) | LOC: ED 17:34 | DX: R07.81 Pleurodynia (principal); Z53.21 Procedure and treatment not carried out due to patient leaving prior to being seen by health care provider ==

== ENCOUNTER 2020-10-18 10:18 | Emergency (ER) | payer MEDICAID ==
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
[2020-10-18 12:51] LABS: HCG Qualitative,Urine Negative (Negative)
[2020-10-18] MEDS ORDERED: oxyCODONE /ACETAMINOPHEN 5-325MG TAB PO PRN (13:40)
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
[2020-10-18 15:20] VITALS: BP 151/94
== END 2020-10-18 15:20 | disposition home or self-care (01) ==
LOC: ED 10:18
DX: S00.83XA Contusion of other part of head, initial encounter (principal); S20.211A Contusion of right front wall of thorax, initial encounter; T71.194A Asphyxiation due to mechanical threat to breathing due to other causes, undetermined, initial encounter; I10 Essential (primary) hypertension; K21.9 Gastro-esophageal reflux disease without esophagitis; F32.9 Major depressive disorder, single episode, unspecified; Z79.899 Other long term (current) drug therapy; Z98.890 Other specified postprocedural states; Y08.89XA Assault by other specified means, initial encounter; Y93.89 Activity, other specified; Y92.89 Other specified places as the place of occurrence of the external cause; Y99.8 Other external cause status
CPT/HCPCS: 70450; 70486; 71250; 72125; 81025

== ENCOUNTER 2021-03-04 14:15 | Emergency (ER) | payer MEDICAID ==
--- NOTE | 2021-03-04 19:55 | Emergency Department Report ---
ED Abdominal Pain HPI - General Chief Complaint: Abdominal Pain Stated Complaint: NAUSEA/VOMITING Time Seen by Provider: 03/04/21 19:18 Source: patient Mode of arrival: Ambulatory Limitations: No Limitations - History of Present Illness Initial Comments: Patient is a 30-year-old female presents emergency room complaints of lower abdominal pain that initially began 2 months ago and exacerbated in the last 3 days. She has associated intermittent nausea, vomiting, diarrhea. She states that she also has vaginal discharge with an odor. She denies any fever, dysuria, hematochezia, melena, hematemesis. She has a past medical history of hypertension. No allergies to medications. She states her last menstrual cycle was 11 days ago. She has a past abdominal surgical history of x3. She states that she is sexually active without protection and is concerned for STDs. Severity scale (0 -10): 8 - Related Data Previous Rx's Medication Instructions Recorded Last Taken Type NIFEdipine XL [Procardia Xl] 30 mg PO QDAY #30 tablet 07/10/17 1 Day Ago Rx ~08/14/17 1 labetaloL [Labetalol 200mg TAB] 300 mg PO BID #60 tablet 08/04/17 1 Day Ago Rx ~08/14/17 Ferrous Sulfate [Feosol 325 MG tab] 325 mg PO BID #60 tablet 08/15/17 Unknown Rx HYDROcodone/APAP 5-325 [[place] 1 each PO Q6HR PRN #30 tablet 08/15/17 Unknown Rx 5/325] Ibuprofen [Motrin] 800 mg PO Q8HR PRN #30 tablet 08/15/17 Unknown Rx Vit Calc,Iron,Folic 1 each PO DAILY #30 tablet 08/15/17 Unknown Rx [ Vitamins] Ibuprofen [Motrin] 800 mg PO Q8HR PRN #28 tablet 11/30/17 Unknown Rx cephALEXin [Keflex] 500 mg PO Q6HR 10 Days capsule 11/30/17 Unknown Rx Ondansetron [Zofran TAB] 4 mg PO Q8HR PRN #15 tablet 04/13/18 Unknown Rx traMADoL [Ultram 50 MG tab] 50 mg PO Q6HR PRN #15 tablet 04/13/18 Unknown Rx Acetaminophen [Tylenol Arthritis] 650 mg PO Q6HR PRN #30 tablet.er 08/22/18 Unknown Rx Ibuprofen [Motrin] 600 mg PO Q8H PRN #30 tablet 08/22/18 Unknown Rx Ondansetron [Zofran Odt] 4 mg PO Q8HR PRN #20 tab.rapdis 08/22/18 Unknown Rx Promethazine [Phenergan SUPPOS] 50 mg DE Q6H PRN #20 supp.rect 08/22/18 Unknown Rx Acetaminophen/Codeine [Tylenol 1 tab PO Q6H PRN #12 tab 06/06/19 Unknown Rx /Codeine # 3 tab] DOXYCYCLINE Hyclate [Vibramycin 100 mg PO Q12HR #20 capsule 06/06/19 Unknown Rx CAP] Ketorolac [Toradol] 10 mg PO Q8H PRN #20 tablet 06/06/19 Unknown Rx Lisinopril/Hydrochlorothiazide 1 tab PO QDAY #30 tab 06/06/19 Unknown Rx [Zestoretic 20-12.5 mg] Ondansetron [Zofran Odt] 4 mg PO Q6HR #15 tab.rapdis 06/06/19 Unknown Rx metroNIDAZOLE [Flagyl] 500 mg PO Q12HR #14 tab 06/06/19 Unknown Rx Ofloxacin 0.3% [Floxin 0.3% Otic] 10 drops DAILY 7 Days #1 bottle 06/01/20 Unknown Rx Ondansetron [Zofran Odt] 4 mg PO Q8HR PRN #12 tab.rapdis 08/02/20 Unknown Rx Naproxen 500 mg PO BID #30 tablet 10/18/20 Unknown Rx labetaloL [Labetalol 200mg TAB] 200 mg PO BID #60 tablet 10/18/20 Unknown Rx traMADoL [Ultram 50 MG tab] 50 mg PO Q4HR PRN #12 tablet 10/18/20 Unknown Rx Doxycycline Hyclate [Doxycycline 100 mg PO BID 7 Days #14 tab 03/04/21 Unknown Rx Hyclate TAB] Ondansetron [Zofran Odt] 4 mg PO Q8HR PRN #10 tab.rapdis 03/04/21 Unknown Rx amLODIPine 10 mg PO DAILY #30 tab 03/04/21 Unknown Rx metroNIDAZOLE [Flagyl] 500 mg PO BID 7 Days #14 tab 03/04/21 Unknown Rx Allergies Allergy/AdvReac Type Severity Reaction Status Date / Time No Known Allergies Allergy Verified 08/22/18 07:14 ED Review of Systems ROS: Stated complaint: NAUSEA/VOMITING Other details as noted in HPI Comment: All other systems reviewed and negative ED Past Medical Hx - Past Medical History Previous Medical History?: Yes Hx Hypertension: Yes Hx Congestive Heart Failure: No Hx Diabetes: No Hx Deep Vein Thrombosis: No Hx GERD: Yes Hx Liver Disease: No Hx Renal Disease: No Hx Sickle Cell Disease: No Hx Seizures: No Hx Psychiatric Treatment: Yes (DEPRESSION) Hx Asthma: No Hx COPD: No Hx HIV: No - Surgical History Past Surgical History?: Yes Additional Surgical History: x3 (2017) - Social History Smoking Status: Never Smoker Substance Use Type: None - Medications Home Medications: Home Medications Medication Instructions Recorded Confirmed Last Taken Type NIFEdipine XL [Procardia Xl] 30 mg PO QDAY #30 tablet 07/10/17 08/15/17 1 Day Ago Rx ~08/14/17 1 labetaloL [Labetalol 200mg TAB] 300 mg PO BID #60 tablet 08/04/17 08/15/17 1 Day Ago Rx ~08/14/17 Ferrous Sulfate [Feosol 325 MG tab] 325 mg PO BID #60 tablet 08/15/17 Unknown Rx HYDROcodone/APAP 5-325 [[place] 1 each PO Q6HR PRN #30 tablet 08/15/17 Unknown Rx 5/325] Ibuprofen [Motrin] 800 mg PO Q8HR PRN #30 tablet 08/15/17 Unknown Rx Vit Calc,Iron,Folic 1 each PO DAILY #30 tablet 08/15/17 Unknown Rx [ Vitamins] Ibuprofen [Motrin] 800 mg PO Q8HR PRN #28 tablet 11/30/17 Unknown Rx cephALEXin [Keflex] 500 mg PO Q6HR 10 Days capsule 11/30/17 Unknown Rx Ondansetron [Zofran TAB] 4 mg PO Q8HR PRN #15 tablet 04/13/18 Unknown Rx traMADoL [Ultram 50 MG tab] 50 mg PO Q6HR PRN #15 tablet 04/13/18 Unknown Rx Acetaminophen [Tylenol Arthritis] 650 mg PO Q6HR PRN #30 tablet.er 08/22/18 Unknown Rx Ibuprofen [Motrin] 600 mg PO Q8H PRN #30 tablet 08/22/18 Unknown Rx Ondansetron [Zofran Odt] 4 mg PO Q8HR PRN #20 tab.rapdis 08/22/18 Unknown Rx Promethazine [Phenergan SUPPOS] 50 mg DE Q6H PRN #20 supp.rect 08/22/18 Unknown Rx Acetaminophen/Codeine [Tylenol 1 tab PO Q6H PRN #12 tab 06/06/19 Unknown Rx /Codeine # 3 tab] DOXYCYCLINE Hyclate [Vibramycin 100 mg PO Q12HR #20 capsule 06/06/19 Unknown Rx CAP] Ketorolac [Toradol] 10 mg PO Q8H PRN #20 tablet 06/06/19 Unknown Rx Lisinopril/Hydrochlorothiazide 1 tab PO QDAY #30 tab 06/06/19 Unknown Rx [Zestoretic 20-12.5 mg] Ondansetron [Zofran Odt] 4 mg PO Q6HR #15 tab.rapdis 06/06/19 Unknown Rx metroNIDAZOLE [Flagyl] 500 mg PO Q12HR #14 tab 06/06/19 Unknown Rx Ofloxacin 0.3% [Floxin 0.3% Otic] 10 drops DAILY 7 Days #1 bottle 06/01/20 Unknown Rx Ondansetron [Zofran Odt] 4 mg PO Q8HR PRN #12 tab.rapdis 08/02/20 Unknown Rx Naproxen 500 mg PO BID #30 tablet 10/18/20 Unknown Rx labetaloL [Labetalol 200mg TAB] 200 mg PO BID #60 tablet 10/18/20 Unknown Rx traMADoL [Ultram 50 MG tab] 50 mg PO Q4HR PRN #12 tablet 10/18/20 Unknown Rx Doxycycline Hyclate [Doxycycline 100 mg PO BID 7 Days #14 tab 03/04/21 Unknown Rx Hyclate TAB] Ondansetron [Zofran Odt] 4 mg PO Q8HR PRN #10 tab.rapdis 03/04/21 Unknown Rx amLODIPine 10 mg PO DAILY #30 tab 03/04/21 Unknown Rx metroNIDAZOLE [Flagyl] 500 mg PO BID 7 Days #14 tab 03/04/21 Unknown Rx ED Physical Exam - General Limitations: No Limitations General appearance: alert, in no apparent distress - Head Head exam: Present: atraumatic, normocephalic - Eye Eye exam: Present: normal appearance - ENT ENT exam: Present: mucous membranes moist - Respiratory Respiratory exam: Present: normal lung sounds bilaterally. Absent: respiratory distress, wheezes, rales, rhonchi, stridor, chest wall tenderness, accessory muscle use, decreased breath sounds, prolonged expiratory - Cardiovascular Cardiovascular Exam: Present: regular rate, normal rhythm, normal heart sounds. Absent: systolic murmur, diastolic murmur, rubs, gallop - GI/Abdominal GI/Abdominal exam: Present: soft, tenderness (mild right suprapubic ), normal bowel sounds. Absent: distended, guarding, rebound, rigid - External exam: Present: swelling (trace labia swelling bilaterally, no lesions /blisters or signs of abscess/celullitis). Absent: erythema, lesions, lacerations, ecchymosis, bleeding Speculum exam: Present: vaginal discharge, cervical discharge, other (taxi dancer: LENORE kim). Absent: erythema, vaginal bleeding, foreign body, tissue, laceration Bi-manual exam: Present: cervical motion tendernes, adnexal tenderness (mild right). Absent: adnexal mass - Neurological Exam Neurological exam: Present: alert, oriented X3 - Psychiatric Psychiatric exam: Present: normal affect, normal mood - Skin Skin exam: Present: warm, dry, intact ED Course Vital Signs 03/04/21 03/04/21 03/04/21 17:31 19:45 21:44 Temperature 98.3 F 98.1 F Pulse Rate 71 66 Respiratory 18 16 16 Rate Blood Pressure 188/113 107/56 [Right] O2 Sat by Pulse 97 100 Oximetry 03/04/21 03/04/21 22:14 23:47 Temperature 98.2 F Pulse Rate 72 Respiratory 16 16 Rate Blood Pressure 186/124 [Right] O2 Sat by Pulse 100 Oximetry ED Medical Decision Making - Lab Data Result diagrams: 03/04/21 20:15 03/04/21 20:15 Lab Results 03/04/21 03/04/21 03/04/21 Range/Units 19:30 20:15 20:15 WBC 8.2 (4.5-11.0) K/mm3 RBC 3.96 (3.65-5.03) M/mm3 Hgb 13.2 (10.1-14.3) gm/dl Hct 38.6 (30.3-42.9) % MCV 97 (79-97) fl MCH 33 H (28-32) pg MCHC 34 (30-34) % RDW 13.4 (13.2-15.2) % Plt Count 229 (140-440) K/mm3 Lymph % (Auto) 35.1 H (13.4-35.0) % [place] % (Auto) 9.9 H (0.0-7.3) % Eos % (Auto) 1.0 (0.0-4.3) % Baso % (Auto) 0.9 (0.0-1.8) % Lymph # (Auto) 2.9 (1.2-5.4) K/mm3 [place] # (Auto) 0.8 (0.0-0.8) K/mm3 Eos # (Auto) 0.1 (0.0-0.4) K/mm3 Baso # (Auto) 0.1 (0.0-0.1) K/mm3 Seg Neutrophils % 53.1 (40.0-70.0) % Seg Neutrophils # 4.3 (1.8-7.7) K/mm3 Sodium 139 (137-145) mmol/L Potassium 4.1 (3.6-5.0) mmol/L Chloride 104.6 (98-107) mmol/L Carbon Dioxide 24 (22-30) mmol/L Anion Gap 15 mmol/L BUN 19 H (7-17) mg/dL Creatinine 0.9 (0.6-1.2) mg/dL Estimated GFR > 60 ml/min BUN/Creatinine Ratio 21 % Glucose 89 (65-100) mg/dL Calcium 9.1 (8.4-10.2) mg/dL Total Bilirubin 0.20 (0.1-1.2) mg/dL AST 13 (5-40) units/L ALT 10 (7-56) units/L Alkaline Phosphatase 66 (35-129) units/L Total Protein 7.0 (6.3-8.2) g/dL Albumin 4.6 (3.9-5) g/dL Albumin/Globulin Ratio 1.9 % Lipase 21 (13-60) units/L Urine Color Yellow (Yellow) Urine Turbidity Slightly-cloudy (Clear) Urine pH 6.0 (5.0-7.0) Ur Specific [place] 1.033 H (1.003-1.030) Urine Protein 30 mg/dl (Negative) mg/dL Urine Glucose (UA) Neg (Negative) mg/dL Urine Ketones Tr (Negative) mg/dL Urine Blood Mod (Negative) Urine Nitrite Neg (Negative) Urine Bilirubin Neg (Negative) Urine Urobilinogen 4.0 (<2.0) mg/dL Ur Leukocyte Esterase Neg (Negative) Urine WBC (Auto) 1.0 (0.0-6.0) /HPF Urine RBC (Auto) 25.0 (0.0-6.0) /HPF U Epithel Cells (Auto) 9.0 (0-13.0) /HPF Urine Mucus 2+ /HPF Urine HCG, Qual Negative (Negative) - Radiology Data Radiology results: report reviewed Ordering Physician: SILVERIO HAYES Date of Service: 03/04/21 Procedure(s): US pelvic complete Accession Number(s): [id number] cc: SILVERIO HAYES US pelvic complete INDICATION / CLINICAL INFORMATION: right suprapubic pain. COMPARISON: None available. FINDINGS: Uterus appears negative. Endometrial stripe measures 1 cm. Neither ovary could be identified due to overlying gas. No free fluid or obvious abnormal mass. IMPRESSION: 1. Normal-appearing uterus. Ovaries not identified. Signer Name: Alex Garcia MD Signed: 03/04/2021 8:32 PM Workstation Name: [id number] Transcribed By: TM Dictated By: Alex Garcia MD Electronically Authenticated By: Alex Garcia MD Signed Date/Time: 03/04/212031 DD/ 29 TD/TT: Ordering Physician: SILVERIO HAYES Date of Service: 03/04/21 Procedure(s): CT abdomen pelvis w con Accession Number(s): [id number] cc: SILVERIO HAYES CT ABDOMEN AND PELVIS WITH CONTRAST INDICATION / CLINICAL INFORMATION: right suprapubic abd pain, +right adnexal ttp. TECHNIQUE: Axial CT images were obtained through the abdomen and pelvis after 100 mL Omnipaque [address] scans at this location are performed using CT dose reduction for ALARA by means of automated exposure control. COMPARISON: CT abdomen pelvis 08/02/2020 FINDINGS: LOWER CHEST: No significant abnormality. LIVER: There is a subcentimeter low density in the right hepatic lobe which is too small to characterize but statistically benign. BILIARY SYSTEM: No significant abnormality. PANCREAS: No significant abnormality. SPLEEN: No significant abnormality. ADRENALS: No significant abnormality. KIDNEYS and URETERS: No significant abnormality. STOMACH / BOWEL: No significant abnormality. The appendix is normal. PERITONEUM: Trace pelvic free fluid. No free air. No fluid collection. LYMPH NODES: No significant adenopathy. VASCULAR STRUCTURES: No significant abnormality. URINARY BLADDER: No significant abnormality. REPRODUCTIVE ORGANS: No significant abnormality. Bilateral tubal ligation clips in place. ADDITIONAL FINDINGS: None. SKELETAL SYSTEM: No significant abnormality. IMPRESSION: 1. No acute process identified within the abdomen or pelvis to account for patient's symptoms. Signer Name: Lauren Blake MD Signed: 03/04/2021 11:02 PM Workstation Name: [id number] Transcribed By: [facility] Dictated By: Lauren Blake MD Electronically Authenticated By: Lauren Blake MD Signed Date/Time: 03/04/212301 DD/ 55 TD/TT: - Medical Decision Making Patient is a 30-year-old female presents emergency room complaints of lower abdominal pain that initially began 2 months ago and exacerbated in the last 3 days. She has associated intermittent nausea, vomiting, diarrhea. She states that she also has vaginal discharge with an odor. She denies any fever, dysuria, hematochezia, melena, hematemesis. She has a past medical history of hypertension. No allergies to medications. She states her last menstrual cycle was 11 days ago. She has a past abdominal surgical history of x3. She states that she is sexually active without protection and is concerned for STDs. Vitals with elevated blood pressure, otherwise stable. Patient is asymptomatic, she has no complaints regarding elevated blood pressure, she has not been compliant with her medication, she is supposed to be taking amlodipine 10 mg, the up-to-date medical literature does not recommend emergently lowering asymptomatic elevated blood pressure. Labs are normal. UA without evidence of UTI. Urine is negative. Pelvic ultrasound 1. Normal-appearing uterus. Ovaries not identified. Chaperoned pelvic examination performed and shows positive CMT and right adnexal tenderness but no masses, there is a small amount of white vaginal discharge. Wet prep sent and shows evidence of bacterial vaginosis. G/C swab sent, patient states that she is concerned for STDs, she states that she does want prophylactic treatment, patient given IM ceftriaxone and prescription for doxycycline. Discussed case with Dr. Paulina Cuenca, given that pelvic ultrasound was not able to visualize ovaries, advised to order CT abdomen pelvis with contrast and shows 1. No acute process identified within the abdomen or pelvis to account for patient's symptoms. Patient given medications while in the emergency department and symptoms impr french. She was able to tolerate p.o. intake without difficulty. She had no episodes of vomiting while in the emergency room. Patient given prescription for doxycycline, Flagyl, Zofran, amlodipine. Advised patient Please take medication as prescribed. Please follow-up with your CO TEACHER. Follow-up with a primary care doctor. Please have a full STD panel performed as an outpatient. Have any partner tested and treated as well. Avoid sexual intercourse. Return to emergency room for any new or worsening symptoms. Critical care attestation.: If time is entered above; I have spent that time in minutes in the direct care of this critically ill patient, excluding procedure time. ED Disposition Clinical Impression: PID (acute pelvic inflammatory disease), Bacterial vaginosis, Elevated blood pressure reading, Non compliance w medication regimen Abdominal pain Qualifiers: Abdominal location: lower abdomen, unspecified Qualified Code(s): R10.30 - Lower abdominal pain, unspecified Disposition: TO HOME OR SELFCARE Is pt being admited?: No Does the pt Need Aspirin: No Condition: Stable Instructions: Bacterial Vaginosis, [id number], Pelvic Inflammatory Disease, Bacterial Vaginosis (ED), Abdominal Pain (ED) Additional Instructions: Please take medication as prescribed. Please follow-up with your CO TEACHER. Follow-up with a primary care doctor. Please have a full STD panel performed as an outpatient. Have any partner tested and treated as well. Avoid sexual intercourse. Return to emergency room for any new or worsening symptoms. Prescriptions: amLODIPine 10 mg PO DAILY #30 tab Doxycycline Hyclate [Doxycycline Hyclate TAB] 100 mg PO BID 7 Days #14 tab metroNIDAZOLE [Flagyl] 500 mg PO BID 7 Days #14 tab Ondansetron [Zofran Odt] 4 mg PO Q8HR PRN #10 tab.rapdis PRN Reason: vomiting Referrals: PRIMARY CARE,MD [Primary Care Provider] - 2-3 Days your, erp specialist [Other] - 2-3 Days Forms: STI Treatment and Prevention Time of Disposition: 23:14 Print Language: WOLOF
[2021-03-04 20:12] LABS: Bilirubin,Urine NEG (Negative); Blood,Urine MOD (Negative); Color,Urine Yellow (Yellow); Mucus,Urine 2+ /HPF
[2021-03-04 20:13] LABS: HCG Qualitative,Urine Negative (Negative)
--- NOTE | 2021-03-04 20:36 | Ultrasound Report ---
US pelvic complete INDICATION / CLINICAL INFORMATION: right suprapubic pain. COMPARISON: None available. FINDINGS: Uterus appears negative. Endometrial stripe measures 1 cm. Neither ovary could be identified due to overlying gas. No free fluid or obvious abnormal mass. IMPRESSION: 1. Normal-appearing uterus. Ovaries not identified. Signer Name: Alex Garcia MD Signed: 03/04/2021 8:32 PM Workstation Name: [id number]
[2021-03-04 20:45] LABS: Basophils # (Auto) 0.1 K/mm3 (0.0-0.1); Basophils % (Auto) 0.9 % (0.0-1.8); Eosinophils # (Auto) 0.1 K/mm3 (0.0-0.4); Hematocrit 38.6 % (30.3-42.9); Hemoglobin 13.2 gm/dl (10.1-14.3); Lymphocytes # (Auto) 2.9 K/mm3 (1.2-5.4); Lymphocytes % (Auto) 35.1 % (13.4-35.0); Mean Corpuscular HGB Conc 34 % (30-34); Mean Corpuscular Volume 97 fl (79-97); Monocytes # (Auto) 0.8 K/mm3 (0.0-0.8); Monocytes % (Auto) 9.9 % (0.0-7.3); Platelet Count 229 K/mm3 (140-440); Red Blood Count 3.96 M/mm3 (3.65-5.03); Red Cell Distribution Width 13.4 % (13.2-15.2)
[2021-03-04 21:12] LABS: Alanine Aminotransferase 10 units/L (7-56); Albumin 4.6 g/dL (3.9-5); BUN/Creatinine Ratio 21; Blood Urea Nitrogen 19 mg/dL (7-17); Calcium 9.1 mg/dL (8.4-10.2); Hemolysis Index 5
[2021-03-04] MEDS ORDERED: KETOROLAC 30 MG/1 ML INJ IV ONE (21:17)
[2021-03-04] MEDS ORDERED: ONDANSETRON 4 MG/2 ML INJ IV ONE (21:17)
[2021-03-04] MEDS: SODIUM CHLORIDE 0.9% 1000 ML 1,000 ML IV ONE ×2 (21:38→21:43)
--- NOTE | 2021-03-04 23:07 | Cat Scan Report ---
CT ABDOMEN AND PELVIS WITH CONTRAST INDICATION / CLINICAL INFORMATION: right suprapubic abd pain, +right adnexal ttp. TECHNIQUE: Axial CT images were obtained through the abdomen and pelvis after 100 mL Omnipaque [address] scans at this location are performed using CT dose reduction for ALARA by means of automated exposure control. COMPARISON: CT abdomen pelvis 08/02/2020 FINDINGS: LOWER CHEST: No significant abnormality. LIVER: There is a subcentimeter low density in the right hepatic lobe which is too small to character ize but statistically benign. BILIARY SYSTEM: No significant abnormality. PANCREAS: No significant abnormality. SPLEEN: No significant abnormality. ADRENALS: No significant abnormality. KIDNEYS and URETERS: No significant abnormality. STOMACH / BOWEL: No significant abnormality. The appendix is normal. PERITONEUM: Trace pelvic free fluid. No free air. No fluid collection. LYMPH NODES: No significant adenopathy. VASCULAR STRUCTURES: No significant abnormality. URINARY BLADDER: No significant abnormality. REPRODUCTIVE ORGANS: No significant abnormality. Bilateral tubal ligation clips in place. ADDITIONAL FINDINGS: None. SKELETAL SYSTEM: No significant abnormality. IMPRESSION: 1. No acute process identified within the abdomen or pelvis to account for patient's symptoms. Signer Name: Lauren Blake MD Signed: 03/04/2021 11:02 PM Workstation Name: [id number]
[2021-03-04] MEDS ORDERED: LIDOCAINE-MPF (1%) 10 MG/1 ML VIAL 5 ML INFILTRATI ONE (23:18)
[2021-03-04 23:47] VITALS: BP 186/124
== END 2021-03-04 23:55 | disposition home or self-care (01) ==
LOC: ED 14:15
DX: N73.9 Female pelvic inflammatory disease, unspecified (principal); N76.0 Acute vaginitis; B96.89 Other specified bacterial agents as the cause of diseases classified elsewhere; R10.30 Lower abdominal pain, unspecified; Z91.14 Patient's other noncompliance with medication regimen; I10 Essential (primary) hypertension; F32.9 Major depressive disorder, single episode, unspecified; Z98.890 Other specified postprocedural states; Z79.1 Long term (current) use of non-steroidal anti-inflammatories (NSAID); Z79.899 Other long term (current) drug therapy
CPT/HCPCS: 36415; 74177; 76856; 80053; 81001; 81025; 83690; 85025; 87210; 87591; 96361; 96372; 96374; 96375; 99284; J0696; J1885; J2405; J7030; Q9967